=== PATIENT | female | born 1950 | race American Indian/Alaskan Native ===

== ENCOUNTER 2018-05-24 09:39 | Outpatient (CLI) | payer MEDICARE, MEDICAID ==
--- NOTE | 2018-05-24 13:46 | MRI ---
MRI LUMBAR SPINE WITHOUT CONTRAST: INDICATION: Wedge compression abnormalities of the lumbar spine. FINDINGS: There is a moderate wedge compression abnormality that is subacute in appearance involving L3. There is a mild inferior end plate compression abnormality of L4 that appears subacute in appearance. No additional acute fracture is evident. There is a T2 hyperintense, T1 hypointense, 1.9 cm, cyst involving the inferior pole of the right kid efrain. At L5-S1, there is mild facet joint degenerative change without appreciable central canal or neural f oraminal narrowing. At L4-5, there is a broad-based bulge with facet hypertrophy inducing mild neural foraminal encroachm ent. At L3-4, there is a mild broad-based bulge and facet hypertrophy causing mild neural foraminal encroa chment. At L2-3, there is some retropulsion of bone fragments from the posterior superior margin of L3 causin g some mild central canal narrowing. There is no appreciable neural foraminal narrowing. At L1-L3, there is no appreciable central canal or neural foraminal narrowing. At T12-L1, there is a small left paracentral protrusion with no appreciable central canal or neural f oraminal narrowing. IMPRESSION: 1. Subacute-appearing compression abnormalities of L3 and L4. 2. Mild central canal narrowing at L2-3. 3. Mild neural foraminal encroachment as above. POS: [facility]
== END 2018-05-24 09:40 | disposition home or self-care (01) ==
LOC: BICMRI 09:39
PROVIDERS: ATTEND Specialist
DX: S32.000A Wedge compression fracture of unspecified lumbar vertebra, initial encounter for closed fracture (principal); M48.061 Spinal stenosis, lumbar region without neurogenic claudication
CPT/HCPCS: 72148

== ENCOUNTER 2018-05-26 11:31 | Day surgery (SDC) | payer MEDICARE, MEDICAID ==
[2018-05-25 15:54] VITALS: BMI 45.5
[~2018-05-26 11:31] MED LIST: PROPOFOL 200 MG/20 ML VIAL ONE; Succinylcholine Chloride 20 MG/ML 10 ml SYRINGE FS ONE
[2018-05-26] MEDS ORDERED: Propofol 500 MG/50 ML VIAL ONE (13:31)
[2018-05-26] MEDS ORDERED: KETAMINE 100 MG/ML (5ML VIAL) ONE (13:48)
[2018-05-26] MEDS ORDERED: Bupivacaine 0.25% HCL 30 ML VIAL ONE (14:14)
[2018-05-26] MEDS ORDERED: Albuterol Sulfate 1.25 MG/3 ML NEB ONE (15:31)
[2018-05-26] MEDS ORDERED: Albuterol Sulfate 2.5 mg/3 ml Neb ONE ×2 (15:31)
[2018-05-26] MEDS ORDERED: Fentanyl 100 MCG/2 ML VIAL ONE (15:52)
[2018-05-26] MEDS ORDERED: HYDROcodone/Acetaminophen 7.5/325 mg Tablet ONE (17:31)
--- NOTE | 2018-05-26 17:49 | OP ---
DATE OF PROCEDURE: 05/26/2018 PREPROCEDURE DIAGNOSES: 1. Compression fracture of third lumbar vertebra. 2. Compression fracture of fourth lumbar vertebra. 3. Pathologic compression fracture of lumbar vertebra. POSTPROCEDURE DIAGNOSES: 1. Compression fracture of third lumbar vertebra. 2. Compression fracture of fourth lumbar vertebra. 3. Pathologic compression fracture of lumbar vertebra. PROCEDURE PERFORMED: 1. Kyphoplasty of the L3 vertebral body. 2. Kyphoplasty of the L4 vertebral body. ANESTHESIA: General. SUMMARY OF PROCEDURE: The risks and benefits were discussed with the patient including, but not limited to, bleeding, infection, nerve damage, worsening of pain or no relief of the pain. Informed consent was obtained. Conservative treatment including bracing, medication, and therapy have failed. Fluoroscopy images were used to identify the appropriate level and correlate these images with prior MRI. The skin was prepped with ChloraPrep. Sterile drapes were applied. The left pedicle of L4 was identified. Cephalad and caudad views were obtained such that the trajectory of the needle in the pedicle would be correct and through the vertebral body and approached middle line a final position. 0.25% Marcaine was used for skin and subcutaneous anesthesia and 11-gauge trocar was advanced to the pedicle. Under AP view, the trocar was advanced to the cortex of the vertebral body taking care not to violate the medial cortex of the pedicle. After contacting the cortex, lateral views were obtained to advance the needle into the vertebral body such that the tip was located at the junction of the posterior one third and middle one third of the vertebral body. The same exact procedure was conducted for the right pedicle of L3. At this point, drills were placed through both trocars and advanced to the anterior one third. These were removed. Claudette balloon was then placed through each trocar and advanced to the vertebral body. The balloon was inflated with approximately 3 mL of contrast to a PSI of 300. A curved needle was then placed through both trocars and it crossed midline. Cement was then mixed in standard fashion. The cement was injected in the cavity under continuous fluoro and no extravagation of cement was noted. Total cement in each level was approximately 3 mL. Spread was noted throughout the cavity and throughout the vertebral body as seen on final images saved. The patient tolerated the procedure well and there were no apparent complications noted at this time. Job ID: [id number]
== END 2018-05-26 17:40 | disposition home or self-care (01) ==
LOC: SDC 11:31
PROVIDERS: ATTEND Specialist
PROC: 0QS03ZZ Reposition Lumbar Vertebra, Percutaneous Approach (ICD-10-PCS; principal; 2018-05-26)
PROC: 0QU03JZ Supplement Lumbar Vertebra with Synthetic Substitute, Percutaneous Approach (ICD-10-PCS; 2018-05-26)
DX: S32.030A Wedge compression fracture of third lumbar vertebra, initial encounter for closed fracture (principal); S32.040A Wedge compression fracture of fourth lumbar vertebra, initial encounter for closed fracture; M54.12 Radiculopathy, cervical region; M47.816 Spondylosis without myelopathy or radiculopathy, lumbar region; J44.9 Chronic obstructive pulmonary disease, unspecified; E78.5 Hyperlipidemia, unspecified; K21.9 Gastro-esophageal reflux disease without esophagitis; I11.0 Hypertensive heart disease with heart failure; I50.9 Heart failure, unspecified; F17.210 Nicotine dependence, cigarettes, uncomplicated; Z79.52 Long term (current) use of systemic steroids; Z79.82 Long term (current) use of aspirin; Z79.899 Other long term (current) drug therapy; X50.0XXA Overexertion from strenuous movement or load, initial encounter
CPT/HCPCS: 22514; 22515; C1769; J2704; J3010; J3490; J7611; S0020

== ENCOUNTER 2018-05-31 11:22 | Inpatient (IN) | payer MEDICARE, MEDICAID ==
[2018-05-31] MEDS ORDERED: Magnesium 2 GM/50 ML BAG (IN WATER) ONE (11:47)
[2018-05-31] MEDS ORDERED: methylPREDNISolone Sod Succ/PF 125 MG/2 ML VIAL ONE (11:47)
[2018-05-31] MEDS ORDERED: Furosemide 40 MG/4 ML VIAL ONE (11:47)
[2018-05-31 12:06] LABS: Actual Bicarbonate (HCO3a) 34.2 mEq/L (22-28); Analyzer IN Cardio ER; Base Excess (BEa) 7.5 mEq/L (-2.0 to +3.0); CO2 Tension 55.5 mmHg (35.0-45.0); Calcium, Ionized 1.14 mmol/L (1.12-1.30); Carboxyhemoglobin (COHb) 3.6 gm% (0.0-3.0); Hemoglobin (Hb) 15.1 g/dL (12.0-16.0); O2 Tension (PaO2) 62.2 mmHg (> 80.0); Potassium - ABG Lab 3.79 mmol/L (3.70-5.30); pH, Arterial 7.41 (7.35-7.45)
[2018-05-31 12:09] LABS: ALV-art Gradient 96.585 (0-20); Puncture Site LR
--- NOTE | 2018-05-31 12:16 | RAD ---
ONE VIEW CHEST: History: Shortness of breath. Comparison: None. FINDINGS: Normal cardiac silhouette. The pulmonary vessels and hilum are normal. Costophrenic angles are clear. Emphysematous change throughout the upper lobes. Interstitial opacities in mid to lower lobes may re present chronic change. Infiltrates cannot be excluded. No pneumothorax or osseous abnormalities. IMPRESSION: 1. Bilateral lower lobe chronic change versus infiltrate. 2. Emphysematous changes. POS: [facility]
[2018-05-31 12:29] LABS: #Basophils 0.1 thou/uL (0.0-0.2); #Eosinphils 0.1 thou/uL (0.0-0.7); #Lymphocytes 2.5 thou/uL (1.20-3.40); #Monocytes 0.7 thou/uL (0.11-0.59); #Neutrophils 4.6 thou/uL (1.40-6.50); %Basophils 0.9 % (0.0-1.0); %Eosinophils 1.3 % (0.0-10.0); %Lymphocytes 31.6 % (21.0-51.0); %Monocytes 8.5 % (0.0-10.0); %Neutrophils 57.7 % (42.0-75.0); Hemoglobin 15.1 g/dL (12.0-16.0); Mean Corpuscular HGB CONC 32.4 g/dL (32.0-36.0); Mean Corpuscular Hemoglobin 31.7 pg (27.0-31.0); Mean Corpuscular Volume 97.7 fL (78.0-98.0); Mean Platelet Volume 7.8 fL (7.4-10.4); Platelet Count 208 thou/uL (130-400); Red Blood Cell (RBC) Count 4.76 mill/uL (4.20-5.40); White Blood Cell (WBC) Count 7.9 thou/uL (4.8-10.8)
[2018-05-31 12:54] LABS: ALT (SGPT) 17 U/L (8-55); AST (SGOT) 15 U/L (5-34); Albumin 4.2 g/dL (3.4-4.8); Alkaline Phosphatase 99 U/L (40-150); Anion Gap 14 mmol/L (10-20); BUN (Urea Nitrogen) 12 mg/dL (9.8-20.1); Bilirubin, Total 0.8 mg/dL (0.2-1.2); Calc. Creatinine Clearance 0 mL/min (70-130); Calcium 9.3 mg/dL (7.8-10.44); Carbon Dioxide 33 mmol/L (23-31); Chloride 98 mmol/L (98-107); Estimated GFR-MDRD 76; Globulin 2.1 g/dL (2.4-3.5); Glucose 112 mg/dL (80-115); Potassium 3.9 mmol/L (3.5-5.1); Protein, Total 6.3 g/dL (6.0-8.3); Sodium 141 mmol/L (136-145)
[2018-05-31 13:32] LABS: Bilirubin Negative (Negative); Blood, Urine Moderate (Negative); Clarity CLEAR (Clear); Glucose, Urine (Dipstick) Negative (Negative); Leukocyte Negative (Negative); Nitrite Negative (Negative); Protein, Urine (Dipstick) Negative (Neg-Trace); Specific Gravity, Urine 1.007 (1.002-1.036); Urobilinogen 0.2 mg/dL (0.2-1.0); pH, Urine 6.5 (5.0-9.0)
[2018-05-31 13:37] LABS: Bacteria/HPF None Seen HPF (None Seen); Hyaline Casts/LPF 0-3 HYALINE CAST LPF (0-3 Hyaline); Pathc Cast-AUWi Flag 0.14 (0-2.49); Squamous Epithelial 0-3 HPF (0-3); WBC/HPF None Seen HPF (0-3)
--- NOTE | 2018-05-31 13:43 | CT ---
CTA CHEST WITH CONTRAST: Comparison: None. History: Increasing shortness of breath and cough for the past few days. Technique: Multiple contiguous axial images were obtained in a CTA of the chest performed with emboli sm protocol. 3D oblique MIP reformats and direct coronal reformats were performed. FINDINGS: The pulmonary arteries are well opacified without filling defects to suggest pulmonary emboli. The he art is normal in size without focal cardiac abnormality. No hilar or mediastinal lymphadenopathy are seen. Emphysematous changes are seen in the lungs, greater in the apices. A 1.1 cm mass like region in the medial lingula may represent atelectasis. A similar appearance is also seen in the right middle lobe on image 73 of 120. No other pulmonary masses are seen. No pneumothorax or pleural effusion are prese nt. The chest wall soft tissues are unremarkable. The visualized subdiaphragmatic structures are unremark able. Mild degenerative changes are seen in the spine. IMPRESSION: No evidence of pulmonary thromboembolism. POS: [facility]
[2018-05-31] MEDS ORDERED: Azithromycin 500 MG VIAL ONE (14:42)
[2018-05-31] MEDS ORDERED: HYDROcodone/Acetaminophen 7.5/325 mg Tablet ONE ×2 (14:42→20:32)
[2018-05-31] MEDS ORDERED: Nitroglycerin 2% Ointment 1 INCH/1 GM Packet ONE (16:01)
[2018-05-31] MEDS ORDERED: ISOVUE-370 76%-LOCM 1 ML ONE (17:00)
[2018-05-31] MEDS ORDERED: Acetaminophen 650 MG Suppository PR PRN (19:46)
[2018-05-31] MEDS ORDERED: Acetaminophen 325 MG TAB PO PRN (19:46)
[2018-05-31] MEDS ORDERED: Ondansetron ODT 4 MG TAB PO PRN (19:46)
[2018-05-31] MEDS ORDERED: Senokot S 8.6-50 MG TAB PO PRN (19:46)
[2018-05-31] MEDS ORDERED: Ondansetron PF 4 MG/2 ML Vial IVP PRN (19:46)
[2018-05-31 23:02] VITALS: BMI 45.9
[2018-05-31] MEDS: cefTRIAXone\\ROCEPHIN 2 GM in Sodium Chloride 0.9% 100 ML IVPB SCH (23:22)
[2018-05-31] MEDS: methylPREDNISolone Sod Succ 40 MG VIAL IVP SCH (23:23)
[2018-05-31] MEDS: Cyclobenzaprine 10 MG TAB PO SCH (23:23)
[2018-05-31] MEDS: Famotidine 20 MG TAB PO SCH (23:23)
--- NOTE | 2018-06-01 02:03 | HP ---
PRIMARY CARE PHYSICIAN: Patience Mayer MD CHIEF COMPLAINT: Cough, shortness of breath. HISTORY OF PRESENT ILLNESS: This is a 68-year-old white female with known history of COPD, on 3 L of oxygen at home. She has had a history of osteoporosis and had a compression fracture, treated by kyphoplasty five days ago by Dr. Christy. The patient reports that she had to be intubated for the procedure. However, since then she has had a sore throat. She has had increasing coughing, wheezing, and shortness of breath. She has chronic cough with chronic clear sputum, this has become yellow and increasing in amount. She has had some chills, no measured fever. The patient called ambulance. Per the EMS report, the patient was saturating 79% at her home. I do not know this was on her 3 L oxygen or not. By the time she came to the ER, she was saturating in the upper 90s on her home dose of 3 L of oxygen. She was given nebs and steroids. CT scan done in the emergency room did not show any pulmonary emboli or pneumonia, just COPD changes. No evidence of pulmonary edema either. The patient was given azithromycin along with nebs and steroids in the emergency room. She started to feel a little bit better, still tight and wheezy, however. The patient also notes that she has had some increasing lower extremity edema. She has this chronically, but seems to have gotten worse in the last few weeks and for the last 2 weeks she has had some redness on the front of her shins, not warm and not spreading, but the redness is new. PAST MEDICAL HISTORY: 1. COPD, on home oxygen and requiring long-term steroids. 2. Osteoporosis with vertebral compression fractures. 3. Hypertension. 4. Previous bradycardia spells. 5. Hyperlipidemia. 6. Gastroesophageal reflux disease. 7. Chronic back pain. 8. Some question of congestive heart failure. 9. Umbilical hernia. PAST SURGICAL HISTORY: 1. Kyphoplasty. 2. Hysterectomy. 3. Recent stress test in [place], unknown results. SOCIAL HISTORY: The patient is , lives with her son who is her medical decision maker. She has recently moved to the area. She smokes one pack per day of cigarettes, this is down from previously four packs per day for the past 48, almost 50 years. No alcohol or illicit drug use. FAMILY HISTORY: Brother with COPD. Dad had coronary artery disease and COPD and diabetes mellitus. REVIEW OF SYSTEMS: CONSTITUTIONAL: Some chills. No measured fevers. No weight changes. EYES: No double vision or blurred vision. ENT: She has had some runny nose and some sore throat since the intubation last week. CARDIOVASCULAR: The patient has intermittent chest pain. This has been somewhat chronic. The reason that she had a stress test done previously last time was started about 2 hours before she came into the hospital, it got a little better with some nitroglycerin in the emergency room that has caused a headache. No palpitations or racing heart. PULMONARY: See HPI. GASTROINTESTINAL: No abdominal pain. She had some nausea and vomiting after her procedure last week, but none since and has been eating well. No diarrhea or constipation. GENITOURINARY: No dysuria or hematuria. MUSCULOSKELETAL: Chronic back pain. No other musculoskeletal complaints. SKIN: The patient has noted some small patches of redness on the front of bilateral shins for the last 2 weeks. These is not spreading, is not warm. She does have chronic edema there, that has gotten worse recently. NEUROLOGIC: No numbness, tingling, or focal weakness. PHYSICAL EXAMINATION: VITAL SIGNS: Blood pressure 132/84, pulse 96, respirations 18, temperature 98, O2 saturation 98%. GENERAL: This is a well-developed, obese white female, in mild respiratory distress, with mild increased work of breathing and some coughing. HEENT: Pupils are equal, round, and reactive to light. Oropharynx is clear without lesions, erythema, or exudate. NECK: Supple. No lymphadenopathy. No thyroid nodules or enlargement. No JVD. HEART: Regular rate and rhythm. No murmurs, rubs, or gallops. LUNGS: The patient has some scattered wheezes bilaterally, has some tight breath sounds. No focal findings. ABDOMEN: Soft, obese, nontender to palpation. Normoactive bowel sounds. No hepatosplenomegaly or other masses. EXTREMITIES: The patient has 2+ pitting edema pops up on bilateral shins. She does have some small patches of erythema on bilateral anterior shins. This is not warm, but is fairly bright, no streaking proximally. No significant tenderness to palpation. No open wounds. SKIN: See extremity exam. No other lesions noted. NEUROLOGIC: Intact strength and sensation in all extremities. No facial droop. PSYCHIATRIC: Alert and oriented x3. Normal mood and affect. LABORATORY DATA: CBC within normal limits. No elevation of white blood cell count. Arterial blood gas, normal pH, pCO2 was 55, PO2 was normal. Complete metabolic panel showed a carbon dioxide of 33, the rest was normal. Lactic acid was negative. Troponin was negative x1. Brain natriuretic peptide was 33. Urinalysis shows a few red blood cells, but no white blood cells, no bacteria. CT of the chest with contrast showed no evidence of pulmonary embolism. No pneumonia. There are some emphysematous changes and some areas of atelectasis. No evidence for pulmonary edema. Chest x-ray, I did review the chest x-ray done in the emergency room along with the radiologist's report. This shows some bilateral lower lobe chronic changes and emphysematous changes. EKG done in the emergency room does show normal sinus rhythm at 86 beats per minute with some occasional PVCs. No ST-segment changes. ASSESSMENT: 1. Chronic obstructive pulmonary disease exacerbation. We will continue nebs, steroids, and we will give the patient Rocephin and Avelox in the hospital. This should cover any possible cellulitis as well. 2. I will consult Dr. Caldwell from Pulmonology to assist in the patient's care. 3. Chest pain, most likely related to her chronic obstructive pulmonary disease exacerbation and coughing, however, did improve some with the nitroglycerin. We will trend the patient's troponins. 4. Edema with a questionable history of congestive heart failure. The patient's BNP is normal and she has no evidence of congestive failure on the CT scan. We will go ahead and get an echocardiogram to further evaluate her heart. 5. Hypertension. Resume patient's home blood pressure medications. 6. Tobacco abuse, counseled the patient on smoking cessation. 7. Gastroesophageal reflux disease. We will put the patient on Pepcid twice a day. 8. Deep venous thrombosis prophylaxis. We will put the patient on Lovenox and SCDs while in bed. 9. Code status. I did discuss this with the patient. She stated that she would not mind being intubated if it was necessary for a short period time, she would not want to be on the ventilator for a long period of time. However, she does not want any sort of chest compressions or shocks done should her heart stop. Her medical decision maker will be her son if she is incapacitated. His name is Austyn Blanco. Job ID: [id number]
[2018-06-01] MEDS: HYDROcodone/Acetaminophen 7.5/325 mg Tablet PO PRN ×4 (05:34→20:33)
[2018-06-01] MEDS: Furosemide 40 MG TAB PO SCH ×2 (05:35→14:54)
[2018-06-01] MEDS: methylPREDNISolone Sod Succ 40 MG VIAL IVP SCH ×4 (05:35→23:41)
[2018-06-01 05:49] LABS: #Lymphocytes 0.7 thou/uL (1.20-3.40); #Monocytes 0.1 thou/uL (0.11-0.59); #Neutrophils 9.2 thou/uL (1.40-6.50); %Eosinophils 0.3 % (0.0-10.0); %Lymphocytes 6.7 % (21.0-51.0); %Monocytes 1.4 % (0.0-10.0); %Neutrophils 91.6 % (42.0-75.0); Hemoglobin 13.5 g/dL (12.0-16.0); Mean Corpuscular HGB CONC 32.5 g/dL (32.0-36.0); Mean Corpuscular Hemoglobin 31.7 pg (27.0-31.0); Mean Corpuscular Volume 97.6 fL (78.0-98.0); Mean Platelet Volume 8.4 fL (7.4-10.4); Platelet Count 186 thou/uL (130-400); RBC Distribution Width 11.9 % (11.5-14.5); Red Blood Cell (RBC) Count 4.26 mill/uL (4.20-5.40); White Blood Cell (WBC) Count 10.1 thou/uL (4.8-10.8)
[2018-06-01 06:15] LABS: Anion Gap 14 mmol/L (10-20); BUN (Urea Nitrogen) 20 mg/dL (9.8-20.1); Calc. Creatinine Clearance 98 mL/min (70-130); Calcium 9.4 mg/dL (7.8-10.44); Carbon Dioxide 30 mmol/L (23-31); Chloride 100 mmol/L (98-107); Estimated GFR-MDRD 72; Glucose 141 mg/dL (80-115); Potassium 5.5 mmol/L (3.5-5.1); Sodium 138 mmol/L (136-145)
[2018-06-01] MEDS: Lisinopril 2.5 MG TAB PO SCH (08:10)
[2018-06-01] MEDS: Cyclobenzaprine 10 MG TAB PO SCH ×3 (08:11→20:33)
[2018-06-01] MEDS: Famotidine 20 MG TAB PO SCH ×2 (08:11→20:34)
[2018-06-01] MEDS: Atorvastatin Calcium 10 MG TAB PO SCH (08:11)
[2018-06-01] MEDS: Enoxaparin Sodium 40 MG/0.4 ML SYRINGE SC SCH (08:12)
--- NOTE | 2018-06-01 08:58 | PDOC.PN ---
- Subjective Encounter Start Date: 06/01/18 Encounter Start Time: 11:40 Subjective: Patient states her breathing is a little bit better. No current chest pain. -: Continued cough with yellow sputum. - Objective Resuscitation Status - Order Detail: 05/31/18 19:07 Resuscitation Status Routine Resuscitation Status: PRTL: Intubate only Discussed with: Patient MAR Reviewed: Yes Vital Signs & Weight: Vital Signs (12 hours) Temp Pulse Resp BP BP Pulse Ox 06/01/18 07:10 97.7 F 89 18 109/59 L 93 L 06/01/18 06:45 82 20 87 L 06/01/18 03:00 97.9 F 82 20 114/56 L 96 06/01/18 00:01 80 16 86 L 05/31/18 22:55 95 05/31/18 22:50 97.9 F 96 20 134/66 95 Weight Weight 197 lb 9.6 oz I&O: 05/31/18 06/01/18 06/02/18 06:59 06:59 06:59 Intake Total 520 Output Total 200 Balance 320 Result Diagrams: 06/01/18 05:11 06/01/18 05:11 Phys Exam - Physical Examination Constitutional: NAD HEENT: moist MMs Respiratory: no rales, no rhonchi, wheezing present Cardiovascular: RRR Gastrointestinal: soft, positive bowel sounds Bilateral lower extremities with compression wraps Neurological: non-focal, moves all 4 limbs Psychiatric: normal affect, A&O x 3 Dx/Plan (1) COPD with exacerbation Code(s): J44.1 - CHRONIC OBSTRUCTIVE PULMONARY DISEASE W (ACUTE) EXACERBATION Status: Acute Comment: On Steroids, Nebs, and Rocephin (2) Chest pain Code(s): R07.9 - CHEST PAIN, UNSPECIFIED Status: Resolved (3) Lower extremity edema Code(s): R60.0 - LOCALIZED EDEMA Status: Chronic Comment: with mild erythema for 2 weeks, possibly mild cellulitis vs venous stasis dermatitis, ECHO pending - Plan cont current plan of care, continue antibiotics, respiratory therapy, DVT proph w/lovenox, DVT proph w/SCDs * . - Discharge Day Encounter end time: 11:50
[2018-06-01 09:50] LABS: Troponin I Less than 0.010 ng/mL (< 0.028)
--- NOTE | 2018-06-01 16:58 | CON ---
DATE OF CONSULTATION: 06/01/2018 HISTORY OF PRESENT ILLNESS: Erica Carr is a 68-year-old female, who is admitted with COPD exacerbation. She is moving to this area, seeking new physicians. She was a 3 to 4 pack-a-day smoker most of the life and is down to a pack a day. She is also vaping. She has oxygen at home. She has never been seen by pulmonary physician this year, but was followed by one for while in [place]. She says she is feeling a little better, she felt in the emergency room. She has been sick for several days. PAST MEDICAL HISTORY: Remarkable for: 1. COPD. 2. Chronic hypoxemia on oxygen at home. 3. History of steroid dependence. 4. History of osteoporosis. 5. Hypertension. 6. History of lipid disorder. 7. History of chronic back pain. 8. Obesity. 9. Reflux disease. 10. History of herniorrhaphy. 11. History of kyphoplasty. 12. Status post hysterectomy. 13. Status post longstanding treatment with steroids. SOCIAL HISTORY: She has this mentioned smoking pack a day, not daily drinking. She denies drug use. FAMILY HISTORY: Positive for vascular disease and COPD. REVIEW OF SYSTEMS: Ten-point review of systems completed, otherwise negative with the exception of chronic pain. PHYSICAL EXAMINATION: GENERAL: She is in no distress. She is 4 feet and 7 inches, 197 pounds. BMI is 45. VITAL SIGNS: She is afebrile, heart rate 86, respiratory rate 18, oximetry 94% on 3 L, and blood pressure 126/56. HEENT: Pupils are equal. Sclerae are anicteric. NECK: Supple. She has a coarse voice. She has no lymphadenopathy. LUNGS: Remarkable diffuse faint wheezes. HEART: Regular rhythm. S1 and S2 are normal. ABDOMEN: Soft and nontender. She is quite obese. EXTREMITIES: Without asymmetry or edema. NEUROLOGIC: Grossly nonfocal. LABORATORY DATA: White count 10.1, hemoglobin 13.5, platelets 186. Sodium 138, potassium 5.5, chloride 100, bicarb 30, BUN 20, and creatinine 0.8. CT pulmonary angiogram, which shows no thromboembolic disease. No infiltrates. IMPRESSION: Acute on chronic respiratory failure with hypoxemia. She also has hypercarbia based on her blood gas in the emergency room with a pH 7.41, CO2 of 55, pO2 of 62. It is not believe she has ever had sleep apnea worked up, which may be contributing factors. She clearly clinically has very significant chronic obstructive pulmonary disease, aggravated by her ongoing heavy tobacco use ( which she does not think is heavy compared to her past). I agree with current management. Antimicrobial therapy, steroids, nebulizer treatments, and physical therapy as well as oxygen will be prescribed. At some point in time, she needs a sleep study. Her antimicrobial therapy can be switched to p.o. tomorrow. She probably can be taken off telemetry monitoring. We will continue to follow the other physicians caring for. This is a 50-minute consult, with greater than 50% of the time spent on the unit coordinating care. Job ID: [id number] MTDD
[2018-06-01] MEDS: Calcium Carbonate 500 MG ChewTAB PO PRN ×2 (18:08→22:19)
[2018-06-01] MEDS: cefTRIAXone\\ROCEPHIN 2 GM in Sodium Chloride 0.9% 100 ML IVPB SCH (20:35)
[2018-06-02] MEDS: HYDROcodone/Acetaminophen 7.5/325 mg Tablet PO PRN ×5 (01:23→21:11)
[2018-06-02 04:57] LABS: Anion Gap 12 mmol/L (10-20); BUN (Urea Nitrogen) 20 mg/dL (9.8-20.1); Calc. Creatinine Clearance 94 mL/min (70-130); Calcium 9.2 mg/dL (7.8-10.44); Carbon Dioxide 32 mmol/L (23-31); Chloride 98 mmol/L (98-107); Estimated GFR-MDRD 69; Glucose 129 mg/dL (80-115); Potassium 4.3 mmol/L (3.5-5.1); Sodium 138 mmol/L (136-145)
[2018-06-02] MEDS: Furosemide 40 MG TAB PO SCH ×2 (05:56→14:43)
[2018-06-02] MEDS: methylPREDNISolone Sod Succ 40 MG VIAL IVP SCH ×4 (05:56→23:16)
--- NOTE | 2018-06-02 07:20 | PDOC.PN ---
- Subjective Encounter Start Date: 06/02/18 Encounter Start Time: 09:00 Subjective: Patient reports improvement in shortness of breath. Cough also -: improving. No fevers. She thinks the chest pain she had previously -: was her reflux. None currently. - Objective Resuscitation Status - Order Detail: 05/31/18 19:07 Resuscitation Status Routine Resuscitation Status: PRTL: Intubate only Discussed with: Patient MAR Reviewed: Yes Vital Signs & Weight: Vital Signs (12 hours) Temp Pulse Resp BP BP Pulse Ox 06/02/18 04:00 97.7 F 89 20 122/57 L 93 L 06/01/18 23:46 89 18 98 06/01/18 20:05 98.2 F 95 18 136/60 94 L Weight Admit Weight 197 lb 9.6 oz Weight 197 lb 9.6 oz I&O: 06/01/18 06/02/18 06/03/18 06:59 06:59 06:59 Intake Total 2100 Output Total 1000 Balance 1100 Result Diagrams: 06/01/18 05:11 06/02/18 09:05 Phys Exam - Physical Examination Constitutional: NAD HEENT: moist MMs no more wheezing, breath sounds still a little tight Cardiovascular: RRR, no significant murmur Gastrointestinal: soft, positive bowel sounds Neurological: non-focal, moves all 4 limbs Psychiatric: normal affect, A&O x 3 Dx/Plan (1) COPD with exacerbation Code(s): J44.1 - CHRONIC OBSTRUCTIVE PULMONARY DISEASE W (ACUTE) EXACERBATION Status: Acute Comment: On Steroids, Nebs, and Rocephin since 05/31/18, switched to Omnicef 06/02/18 (2) Chest pain Code(s): R07.9 - CHEST PAIN, UNSPECIFIED Status: Resolved Comment: troponins all negative (3) Lower extremity edema Code(s): R60.0 - LOCALIZED EDEMA Status: Chronic Comment: with mild erythema for 2 weeks, possibly mild cellulitis vs venous stasis dermatitis, ECHO pending (4) GERD (gastroesophageal reflux disease) Code(s): K21.9 - GASTRO-ESOPHAGEAL REFLUX DISEASE WITHOUT ESOPHAGITIS Status: Chronic Comment: on PPI, add Maalox as needed - Plan cont current plan of care, continue antibiotics, respiratory therapy, out of bed /ambulate Switching to oral antibiotics. Cardiac w/u negative and no more chest -: pain. Will transfer to medical floor. Appreciate Dr. Caldwell's imput. * . - Discharge Day Encounter end time: 09:15
[2018-06-02] MEDS ORDERED: Mag-Al 1200 mg/1200 mg/30 ML UDCUP PO PRN (08:54)
[2018-06-02] MEDS: Cyclobenzaprine 10 MG TAB PO SCH ×3 (09:01→20:25)
[2018-06-02] MEDS: Cefdinir 300 MG CAP PO SCH ×2 (09:02→20:26)
[2018-06-02] MEDS: Atorvastatin Calcium 10 MG TAB PO SCH (09:02)
[2018-06-02] MEDS: Enoxaparin Sodium 40 MG/0.4 ML SYRINGE SC SCH (09:03)
[2018-06-02] MEDS: Lisinopril 2.5 MG TAB PO SCH (09:05)
[2018-06-02 09:54] LABS: Anion Gap 16 mmol/L (10-20); BUN (Urea Nitrogen) 21 mg/dL (9.8-20.1); Calc. Creatinine Clearance 79 mL/min (70-130); Calcium 9.9 mg/dL (7.8-10.44); Carbon Dioxide 31 mmol/L (23-31); Chloride 94 mmol/L (98-107); Estimated GFR-MDRD 56; Glucose 150 mg/dL (80-115); Sodium 136 mmol/L (136-145)
--- NOTE | 2018-06-02 16:18 | PRG ---
DATE OF SERVICE: 06/02/2018 SUBJECTIVE: Erica Carr says she is feeling better. OBJECTIVE: VITAL SIGNS: She is afebrile. Heart rate is in 80s, respiratory rates in the teens, oximetry is 93% on 3 L, blood pressure 127/70. LUNGS: Remarkable for barely audible wheezes today, significantly improved compared to yesterday. HEART: Regular rhythm. ABDOMEN: Soft. LABORATORY DATA: Sodium 136, potassium 5, chloride 94, bicarb 31, BUN 21, creatinine 0.99. IMPRESSION: Chronic obstructive pulmonary disease exacerbation, clinically improved. She can be switched to p.o. steroids, p.o. antimicrobial therapy, can be considered for discharge tomorrow. I will see her in the office in 2 to 3 weeks after discharge. She is on nothing for osteoporosis and has been on steroids for a long time. She probably should have Fosamax 70 mg a week added. We should probably add budesonide to her nebulized treatments at home, also hoping to decrease her use of p.o. steroids. Obviously decrease smoking more than the three pack, she has cutback, will lead to significant improvement in her pulmonary function most likely. We will continue to follow. Job ID: [id number] MTDD
[2018-06-02] MEDS: Calcium Carbonate 500 MG ChewTAB PO PRN (23:24)
[2018-06-03] MEDS: HYDROcodone/Acetaminophen 7.5/325 mg Tablet PO PRN ×5 (02:00→21:17)
[2018-06-03] MEDS: methylPREDNISolone Sod Succ 40 MG VIAL IVP SCH ×4 (05:06→23:00)
[2018-06-03] MEDS: Furosemide 40 MG TAB PO SCH ×2 (05:06→16:20)
[2018-06-03] MEDS: Enoxaparin Sodium 40 MG/0.4 ML SYRINGE SC SCH (08:22)
[2018-06-03] MEDS: Cefdinir 300 MG CAP PO SCH ×2 (08:24→20:24)
[2018-06-03] MEDS: Cyclobenzaprine 10 MG TAB PO SCH ×3 (08:24→20:24)
[2018-06-03] MEDS: Lisinopril 2.5 MG TAB PO SCH (08:24)
[2018-06-03] MEDS: Atorvastatin Calcium 10 MG TAB PO SCH (08:25)
--- NOTE | 2018-06-03 09:26 | PDOC.PN ---
- Subjective Encounter Start Date: 06/03/18 Encounter Start Time: 10:45 Subjective: Patient feeling slowly better. Still lightheaded and sob with exertion but -: improving. - Objective Resuscitation Status - Order Detail: 05/31/18 19:07 Resuscitation Status Routine Resuscitation Status: PRTL: Intubate only Discussed with: Patient MAR Reviewed: Yes Vital Signs & Weight: Vital Signs (12 hours) Temp Pulse Resp BP BP BP Pulse Ox 06/03/18 08:24 77 112/69 06/03/18 07:33 97.8 F 77 18 112/69 93 L 06/03/18 06:55 95 06/03/18 06:54 96 20 95 06/03/18 05:27 97.9 F 75 18 115/68 95 06/03/18 01:38 82 18 100 06/02/18 23:20 97.6 F 76 18 94/60 95 06/02/18 21:50 76 16 95 Weight Admit Weight 197 lb 9.6 oz Weight 197 lb 9.6 oz I&O: 06/02/18 06/03/18 06/04/18 06:59 06:59 06:59 Intake Total 2100 1170 Output Total 1000 1500 Balance 1100 -330 Result Diagrams: 06/01/18 05:11 06/02/18 09:05 Phys Exam - Physical Examination Constitutional: NAD HEENT: moist MMs Respiratory: no wheezing, no rales, no rhonchi tight breath sounds bilaterally, improved Cardiovascular: RRR Gastrointestinal: soft, positive bowel sounds Neurological: non-focal, moves all 4 limbs Psychiatric: normal affect, A&O x 3 Dx/Plan (1) COPD with exacerbation Code(s): J44.1 - CHRONIC OBSTRUCTIVE PULMONARY DISEASE W (ACUTE) EXACERBATION Status: Acute Comment: On Steroids, Nebs, and Rocephin since 05/31/18, switched to Omnicef 06/02/18 (2) Chest pain Code(s): R07.9 - CHEST PAIN, UNSPECIFIED Status: Resolved Comment: troponins all negative (3) Lower extremity edema Code(s): R60.0 - LOCALIZED EDEMA Status: Chronic Comment: with mild erythema for 2 weeks, possibly mild cellulitis vs venous stasis dermatitis, ECHO pending (4) GERD (gastroesophageal reflux disease) Code(s): K21.9 - GASTRO-ESOPHAGEAL REFLUX DISEASE WITHOUT ESOPHAGITIS Status: Chronic Comment: on PPI, add Maalox as needed (5) Congestive heart failure (CHF) Code(s): I50.9 - HEART FAILURE, UNSPECIFIED Status: Chronic Qualifiers: Heart failure type: combined systolic and diastolic Comment: EF 40-45%, grade 1/3 diastolic dysfunction - Plan cont current plan of care, continue antibiotics, respiratory therapy Patient still quite weak, would like to go home but daughter won't be -: available to be there 24 hours until tomorrow. Will plan on home tomorrow -: with home PT/OT. * . - Discharge Day Encounter end time: 11:00
--- NOTE | 2018-06-03 16:10 | PRG ---
DATE OF SERVICE: 06/03/2018 SUBJECTIVE: Erica Carr has no new complaints. She tells me she is being discharged tomorrow. I have written a prescription for prednisone taper, nebulized budesonide 0.5 mg as well as Fosamax 70 mg to take once a week. OBJECTIVE: VITAL SIGNS: She is afebrile, heart rate is 90, respiratory rate is 18; oximetry is 91% on 2 L cannula, she has oxygen at home and blood pressure is 119/61. LUNGS: Clear today. HEART: Regular rhythm. ABDOMEN: Soft and nontender. EXTREMITIES: Without edema. LABORATORY DATA: No new lab. IMPRESSION: 1. Chronic obstructive pulmonary disease exacerbation. 2. Probable sleep apnea. 3. Obesity and deconditioning. 4. Steroid dependence lately. 5. Heavy tobacco use up until this admission. PLAN: Continue supportive care. I will see her in followup in 2 to 3 weeks after discharge. She has my phone number. Job ID: [id number]
[2018-06-03] MEDS: Calcium Carbonate 500 MG ChewTAB PO PRN ×2 (16:28→23:00)
[2018-06-04] MEDS: HYDROcodone/Acetaminophen 7.5/325 mg Tablet PO PRN ×3 (01:15→13:12)
[2018-06-04] MEDS: Furosemide 40 MG TAB PO SCH ×2 (05:55→13:12)
[2018-06-04] MEDS: methylPREDNISolone Sod Succ 40 MG VIAL IVP SCH ×2 (05:56→13:13)
[2018-06-04 08:26] VITALS: BP 110/74; TEMP 98.7
[2018-06-04] MEDS: Atorvastatin Calcium 10 MG TAB PO SCH (09:26)
[2018-06-04] MEDS: Cyclobenzaprine 10 MG TAB PO SCH ×2 (09:26→13:11)
[2018-06-04] MEDS: Lisinopril 2.5 MG TAB PO SCH (09:27)
[2018-06-04] MEDS: Cefdinir 300 MG CAP PO SCH (09:29)
[2018-06-04] MEDS: Enoxaparin Sodium 40 MG/0.4 ML SYRINGE SC SCH (09:32)
[2018-06-04] MEDS: Calcium Carbonate 500 MG ChewTAB PO PRN (13:13)
--- NOTE | 2018-06-05 02:02 | DIS ---
DATE OF ADMISSION: 05/31/2018 DATE OF DISCHARGE: 06/04/2018 CONSULTANTS: Dr. Caldwell of Pulmonology. MEDICATIONS: Medications are reconciled at discharge. New medications; 1. Fosamax 70 mg once a week for 4 weeks. 2. Budesonide 0.5 mg nebulized b.i.d. 3. Prednisone 20 mg tablets 2 tablets daily for 5 days and then 1 tablet daily after that until followup with Dr. Caldwell. The above medications prescribed by Dr. Caldwell Medication discontinued: Prednisone 10 mg daily, that the patient was previously on. Home medications to continue; 1. Vitamin D 50,000 units weekly. 2. Flexeril 5 mg p.o. t.i.d. 3. Furosemide 40 mg b.i.d. 4. [place] 7.5 mg 1 every 6 hours as needed. 5. Ipratropium 2 puffs 4 times daily as needed. 6. DuoNebs 4 times daily. 7. Lisinopril 2.5 mg daily. 8. Nitroglycerin 0.4 mg sublingual every 5 minutes as needed. 9. Protonix 40 mg daily. FINAL DIAGNOSES: 1. Acute on chronic hypoxic respiratory failure secondary to chronic obstructive pulmonary disease exacerbation. SECONDARY DIAGNOSES: 2. Systolic and diastolic heart failure, appears stable. 3. Osteoporosis with recent vertebral compression fracture and kyphoplasty. 4. Hypertension. 5. Dyslipidemia. 6. History of bradycardia. 7. Gastroesophageal reflux disease. 8. Chronic back pain. HISTORY OF PRESENT ILLNESS: Ms. Carr is a 68-year-old female with the above medical problems, who is on chronic oxygen, complaining of increasing cough and shortness of breath. The patient was found to have oxygen saturations of 79%, and was transported by EMS to this facility. In the emergency room, she was evaluated, started on steroids, antibiotics, and nebulizer therapy, and was admitted to the hospital. HOSPITAL COURSE: The patient was kept on the above medications in addition to Rocephin. She has had improvement of her breathing and is now back to baseline. She is on 3 L of home oxygen, uses regular nebulizers, and is on chronic prednisone. At discharge, she will be transitioned from Solu-Medrol to prednisone 40 mg once daily for 5 days and then 20 mg daily after that until follow up with Dr. Caldwell. T he patient does have systolic and diastolic heart failure. In discussion with her, she reports an EF normally around 40%, which is consistent with her echocardiogram here. She is on Lasix twice daily and we will continue with this. She does not require potassium replacement secondary to her potassium ranging from normal up to 5. One day it was 5.5, however, the following day it was 4.3. She does have lower extremity edema and does have some weeping and open skin wounds that were dressed by Wound Care here. It is recommended that she follow up with her new primary care provider with consideration for ongoing wound care. In addition, the patient does need to establish care with a quality compliance consultant and reports that she will schedule with Dr. Ely. The patient is overall at her baseline and does request discharge and meet criteria. PHYSICAL EXAMINATION: VITAL SIGNS: Temperature 98.7, pulse 98, respirations 14, sat 90% on 3 L, blood pressure 110/74. GENERAL: Awake, alert, responsive, in no apparent distress. LUNGS: Very distant lung sounds. No audible wheezing or rhonchi. HEART: Normal S1 and S2. No significant murmur. ABDOMEN: Soft with present bowel sounds. EXTREMITIES: She does have at least 2+ pitting edema bilateral. Her lower extremities are dressed. These were not evaluated. BRIGGS FINDINGS AND TEST RESULTS: CBC, on June 01, 10.1, 13.5, 41.6,186. Chemistry; 136, 5.0, 94, 31, 21, 0.99, 150. LFTs on admission, T bilirubin 0.8, AST 15, ALT 19, alkaline phosphatase 99, total protein 6.3, albumin 4.2. Urine on admission, reports moderate blood, but 4 to 6 red blood cells. Echocardiogram on June 01, shows an EF of 40% to 45%, grade 1/3 diastolic dysfunction, aortic valve sclerosis, but opens well, mild MR and TR. CT angiogram of the chest, negative for PE. Chest x-ray on 31 May, shows bilateral lower lobe chronic changes versus infiltrate and emphysematous changes. DIET: Heart healthy, low-sodium. ACTIVITY: As tolerated. FOLLOWUP: 1. Followup is with Dr. Caldwell 1st available in 2 to 3 weeks. 2. Recommend the patient makes an appointment with Cardiology to manage her chronic systolic and diastolic heart failure. 3. Follow up with her primary care provider within a week to review this hospitalization and any other needs. CODE STATUS: Here is intubate only, ongoing conversation will be helpful for the patient. Reviewed with the patient this hospitalization, medications, the importance of followup, and seek care precautions. She demonstrated understanding. DISCHARGE DISPOSITION: Home with home health. TIME SPENT: Total time coordinating discharge is 35 minutes. Job ID: [id number] MTDD
== END 2018-06-04 16:58 | disposition home or self-care (01) | DRG 190 ==
LOC: ERS 11:22 → 2NO 19:07 → T4-A 06-02 13:04
PROVIDERS: ADMIT Emergency Medicine; ATTEND Emergency Medicine
DX: J44.1 Chronic obstructive pulmonary disease with (acute) exacerbation (principal); J96.21 Acute and chronic respiratory failure with hypoxia; Z68.42 Body mass index [BMI] 45.0-49.9, adult; I50.42 Chronic combined systolic (congestive) and diastolic (congestive) heart failure; Z99.81 Dependence on supplemental oxygen; M81.0 Age-related osteoporosis without current pathological fracture; E78.5 Hyperlipidemia, unspecified; K21.9 Gastro-esophageal reflux disease without esophagitis; I11.0 Hypertensive heart disease with heart failure; G47.30 Sleep apnea, unspecified; F17.200 Nicotine dependence, unspecified, uncomplicated; E66.9 Obesity, unspecified; R00.1 Bradycardia, unspecified; M54.9 Dorsalgia, unspecified; G89.29 Other chronic pain
CPT/HCPCS: 36415; 71045; 71275; 80048; 80053; 81003; 81015; 82805; 83605; 83880; 84484; 85025; 90471; 90662; 93005; 93306; 94640; 94760; 96365; 96367; 96375; G0008; J0456; J0696; J1650; J1940; J2920; J2930; J3475; J7050; J7620; Q0162; Q9966

== ENCOUNTER 2018-06-05 10:14 | Inpatient (IN) | payer MEDICARE, MEDICAID ==
[2018-06-05 10:56] LABS: Actual Bicarbonate (HCO3a) 36.6 mEq/L (22-28); Analyzer IN Cardio ER; Base Excess (BEa) 10.1 mEq/L (-2.0 to +3.0); CO2 Tension 56.5 mmHg (35.0-45.0); Calcium, Ionized 1.09 mmol/L (1.12-1.30); Carboxyhemoglobin (COHb) 2.4 gm% (0.0-3.0); Hemoglobin (Hb) 14.4 g/dL (12.0-16.0); O2 Tension (PaO2) 125.4 mmHg (> 80.0); pH, Arterial 7.43 (7.35-7.45)
[2018-06-05 10:58] LABS: Puncture Site RR
[2018-06-05 10:59] LABS: ALV-art Gradient 124.825 (0-20)
[2018-06-05 11:04] LABS: #Basophils 0.1 thou/uL (0.0-0.2); #Monocytes 0.6 thou/uL (0.11-0.59); #Neutrophils 7.3 thou/uL (1.40-6.50); %Basophils 0.8 % (0.0-1.0); %Eosinophils 0.4 % (0.0-10.0); %Lymphocytes 11.4 % (21.0-51.0); %Monocytes 6.7 % (0.0-10.0); %Neutrophils 80.8 % (42.0-75.0); Hemoglobin 13.8 g/dL (12.0-16.0); Mean Corpuscular HGB CONC 32.2 g/dL (32.0-36.0); Mean Corpuscular Hemoglobin 31.6 pg (27.0-31.0); Mean Corpuscular Volume 98.2 fL (78.0-98.0); Mean Platelet Volume 7.7 fL (7.4-10.4); Platelet Count 220 thou/uL (130-400); RBC Distribution Width 11.6 % (11.5-14.5); Red Blood Cell (RBC) Count 4.35 mill/uL (4.20-5.40); White Blood Cell (WBC) Count 9.1 thou/uL (4.8-10.8)
--- NOTE | 2018-06-05 11:24 | RAD ---
CHEST 1 VIEW: HISTORY: COPD. Dyspnea. COMPARISON: 05/31/2018. FINDINGS: Cardiac silhouette is magnified and remains partially obscured by patchy bibasilar infiltrates. Pulm onary vasculature upper limits of normal. Linear radiopacity at the medial aspect of the left upper chest is stable. No lobar consolidation or evidence of pneumothorax. Old right rib fracture. IMPRESSION: Mild patchy bibasilar infiltrates and other chronic-type findings appear stable. POS: [facility]
[2018-06-05 11:34] LABS: ALT (SGPT) 22 U/L (8-55); AST (SGOT) 16 U/L (5-34); Albumin 4.2 g/dL (3.4-4.8); Alkaline Phosphatase 88 U/L (40-150); Anion Gap 12 mmol/L (10-20); BUN (Urea Nitrogen) 23 mg/dL (9.8-20.1); Bilirubin, Total 1.1 mg/dL (0.2-1.2); Calc. Creatinine Clearance 0 mL/min (70-130); Calcium 9.2 mg/dL (7.8-10.44); Carbon Dioxide 37 mmol/L (23-31); Chloride 94 mmol/L (98-107); Estimated GFR-MDRD 56; Globulin 2.3 g/dL (2.4-3.5); Glucose 106 mg/dL (80-115); Potassium 4.3 mmol/L (3.5-5.1); Protein, Total 6.5 g/dL (6.0-8.3); Sodium 139 mmol/L (136-145)
[2018-06-05] MEDS ORDERED: HYDROcodone/Acetaminophen 5/325 mg Tablet ONE (12:03)
[2018-06-05] MEDS ORDERED: Calcium Carbonate 500 MG ChewTAB ONE (13:19)
--- NOTE | 2018-06-05 13:36 | HP ---
PRIMARY CARE PHYSICIAN: Patience Mayer MD. REASON FOR ADMISSION: COPD exacerbation. HISTORY OF PRESENT ILLNESS: A 68-year-old female, who has underlying end-stage COPD as well as chronic respiratory failure, on home oxygen. The patient was recently admitted in our hospital on May 31, 2018. During that admission, Pulmonary group was following while in hospital. Pulmonary group signed off on this patient on June 03, 2018. The patient was discharged home yesterday, June 04, 2018. Per the patient, she was discharged late in the evening and she was not able to refill her prescription because her pharmacy was closed and she was without her prednisone as well as nebulizer therapy. This morning, her condition deteriorated, and she could not wait until she gets prescription and that is why she called Paramedics, and the patient was brought to emergency room. As per Paramedics, the patient was saturating 86% on home oxygen therapy. She was in tripod position. Paramedics started on her CPAP, and the patient was given DuoNeb therapy as well as Solu-Medrol prior to arrival. In the emergency room, the patient required BiPAP, and after short-term BiPAP therapy, the patient felt much better. When I saw this patient at that time, the patient was able to talk in full sentence and able to provide history. The patient also reports that her chronic oxygen saturation at home with oxygen is running 88 to 90s. In the emergency room, her oxygen saturation was in that range. The patient was not tachycardic. She was not using her accessory muscles of respiration. The patient felt better after BiPAP therapy and emergency room treatment. The patient did not have any fever or hemoptysis. She denies any constipation, diarrhea, melena, or hematochezia. She denies any headache or focal motor symptoms. REVIEW OF SYSTEMS: CONSTITUTIONAL: Negative for weight loss or gain, ability to conduct usual activities. SKIN: Negative for rash, itching. EYES: Negative for double vision, pain. ENT/MOUTH: Negative for nose bleeding, neck stiffness, pain, tenderness. CARDIOVASCULAR: Negative for palpitations, dyspnea on exertion, orthopnea. RESPIRATORY: Negative for shortness of breath, wheezing, cough, hemoptysis, fever or night sweats. GASTROINTESTINAL: Negative for poor appetite, abdominal pain, heartburn, nausea, vomiting, constipation, or diarrhea. GENITOURINARY: Negative for urgency, frequency, dysuria, nocturia. MUSCULOSKELETAL: Negative for pain, swelling. NEUROLOGIC/PSYCHIATRIC: Negative for anxiety, depression. ALLERGY/IMMUNOLOGIC: Negative for skin rash, bleeding tendency. See my HPI for pertinent positives and negatives. All other review of systems reviewed and negative except as mentioned in HPI. PAST MEDICAL HISTORY: Chronic respiratory failure, on home oxygen therapy; end-stage COPD; osteoporosis; multiple vertebral compression fracture; hypertension; dyslipidemia; gastroesophageal reflux disease; chronic low back pain; and chronic systolic and diastolic heart failure. PAST SURGICAL HISTORY: Multiple kyphoplasty and hysterectomy. SOCIAL HISTORY: The patient is , lives with her son, who is medical decision maker. She recently moved to this area. She smokes about one pack per day. Previously, she used to smoke about four packs per day, but she cut down for last few days. No history of alcohol or other illicit drug abuse. FAMILY HISTORY: Brother also has COPD. Father also had COPD, coronary artery disease, and diabetes. EMERGENCY ROOM COURSE: The patient was given DuoNeb therapy x2 and Solu-Medrol 125 mg. ALLERGIES: NO KNOWN DRUG ALLERGIES. CURRENT HOME MEDICATIONS: 1. Nitroglycerin 0.4 mg sublingual p.r.n. 2. [place] 7.5 one tablet q.6 hourly p.r.n. 3. Lipitor 10 mg p.o. daily. 4. Vitamin D3 of 50,000 units weekly. 5. Flexeril 5 mg b.i.d. p.r.n. 6. Lasix 40 mg daily. 7. Atrovent HFA 2 puffs q.6 hourly. 8. DuoNeb q.6 hourly. 9. Lisinopril 2.5 mg p.o. daily. 10. Protonix 40 mg p.o. daily. 11. Fosamax 70 mg every week. 12. Pulmicort nebulization twice daily. 13. Prednisone 40 mg as directed. PHYSICAL EXAMINATION: VITAL SIGNS: On arrival, blood pressure 148/88, pulse 92, respiratory rate 20, temperature 98.7, saturation 100% on BiPAP. Currently, the patient is off BiPAP and saturating 92%. Weight 88.9 kg. GENERAL: The patient is currently alert, awake, in mild respiratory distress. HEENT: Head; normocephalic and atraumatic. Eyes; pupils are round and reactive to light. Extraocular muscle, intact. ENT; oropharynx within normal limits. Moist mucous membrane. No oral lesion. No pharyngeal erythema. No exudate. NECK: Supple. No JVD. No thyromegaly. No carotid bruit. LUNGS: Bilateral end-expiratory wheezing. No accessory muscles of respiration in use. CARDIAC: S1 and S2, regular. Slight tachycardia. No murmur. No gallop. No rub. ABDOMEN: Soft. Bowel sounds present. Nontender. Nondistended. No organomegaly. No mass. No suprapubic tenderness. BACK: Unremarkable. No CVA tenderness. EXTREMITIES: Upper extremities, passive movement of all joints is normal. Lower extremities, no edema. Good distal pulsation. SKIN: No skin rash. HEMATOLOGICAL SYSTEM: No lymphadenopathy. PSYCHIATRIC: Normal affect. SIGNIFICANT LABORATORY DATA: EKG is showing normal sinus rhythm without any acute ischemic changes. Chest x-ray based on my review; mild patchy bibasilar infiltrate, chronic changes. CBC; WBC 9.1, hemoglobin 13.8, platelet 220. ABG; pH 7.43, CO2 of 56.5, bicarb 36.6, O2 of 125.4, saturation 98.1 on BiPAP. BMP; sodium 139, potassium 4.3, chloride 94, carbon dioxide 37, BUN 23, creatinine 0.99, glucose 106, calcium 9.2. LFT; AST 16, ALT 22, alkaline phosphatase 88, albumin 4.2. BNP 58.4. Troponin 0.010. ASSESSMENT AND PLAN: 1. [id number] respiratory failure with hypoxia and hypercapnia. The patient's home oxygen saturation was 86% with her home oxygen. The patient was not able to refill her prescription yesterday, and she was not able to get any medication that might have precipitated her recurrent presentation. She has improved with BiPAP in the emergency room and currently maintaining her baseline saturation with nasal cannula oxygen. 2. Chronic obstructive pulmonary disease exacerbation, likely due to inability to refill prescription. The patient will be observed overnight in hospital with frequent respiratory therapy, Solu-Medrol 40 mg IV q.6 hourly, Pulmicort nebulization twice daily, and Mucinex 600 mg twice daily. 3. Dyslipidemia. We will continue Lipitor 10 mg p.o. daily. 4. Chronic low back pain. We will continue Flexeril 5 mg p.o. b.i.d. p.r.n. 5. Chronic systolic and diastolic heart failure, currently euvolemic. Continue Lasix 40 mg p.o. daily. 6. Lisinopril 2.5 mg p.o. daily. The patient is not a good candidate for beta-venu therapy because of end-stage chronic obstructive pulmonary disease. 7. Osteoporosis. The patient will resume Fosamax after discharge. 8. Gastroesophageal reflux disease. We will continue Protonix 40 mg p.o. daily. 9. Deep venous thrombosis prophylaxis. Lovenox 40 mg subcutaneous daily. 10. Gastrointestinal prophylaxis. Protonix 40 mg p.o. daily. CODE STATUS: The patient is full code. The patient's son is surrogate decision maker. DISPOSITION PLAN: Based on clinical course, likely 24 to 48 hours. Plan of care discussed with the patient in detail. Job ID: [id number]
[2018-06-05] MEDS ORDERED: Ondansetron ODT 4 MG TAB SL PRN (14:14)
[2018-06-05] MEDS ORDERED: Ondansetron PF 4 MG/2 ML Vial IVP PRN ×2 (14:14→14:33)
[2018-06-05] MEDS ORDERED: Acetaminophen 325 MG TAB PO PRN ×2 (14:14→14:33)
[2018-06-05] MEDS ORDERED: Sodium Chloride 0.9% 500 ML IV SCH (14:15)
[2018-06-05 14:22] VITALS: BMI 45.5
[2018-06-05] MEDS ORDERED: Cepastat Lozenges 1 LOZ PO PRN (14:33)
[2018-06-05] MEDS ORDERED: Bisacodyl 5 MG TAB PO PRN (14:33)
[2018-06-05] MEDS ORDERED: Senokot S 8.6-50 MG TAB PO PRN (14:33)
[2018-06-05] MEDS ORDERED: Diabetic Tussin 200 MG/10 ML UDCUP PO PRN (14:33)
[2018-06-05] MEDS ORDERED: Eucerin (Mineral Oil/Petrolatum,White) 30 gm Jar TOP PRN (14:33)
[2018-06-05] MEDS ORDERED: Loratadine 10 MG TAB PO PRN (14:33)
[2018-06-05] MEDS ORDERED: cloNIDine 0.1 MG TAB PO PRN (14:33)
[2018-06-05] MEDS ORDERED: Bisacodyl 10 MG SUPP PR PRN (14:33)
[2018-06-05] MEDS ORDERED: Ondansetron ODT 4 MG TAB PO PRN (14:33)
[2018-06-05] MEDS ORDERED: hydrALAZINE 20 MG/ML VIAL SLOW IVP PRN (14:33)
[2018-06-05] MEDS ORDERED: Loperamide HCl 2 MG CAP PO PRN (14:33)
[2018-06-05] MEDS ORDERED: Calcium Carbonate 500 MG ChewTAB PO PRN (14:33)
[2018-06-05] MEDS ORDERED: Sodium Chloride 0.65% Nasal 44 ML BOT EA NARE PRN (14:33)
[2018-06-05] MEDS ORDERED: Artificial Tears 18 DROP/0.9 ML EA EYE PRN (14:33)
[2018-06-05] MEDS: methylPREDNISolone Sod Succ 40 MG VIAL IVP SCH ×2 (15:24→20:15)
[2018-06-05] MEDS: Cyclobenzaprine 10 MG TAB PO PRN ×2 (15:24→23:37)
[2018-06-05] MEDS: HYDROcodone/Acetaminophen 5/325 mg Tablet PO PRN ×2 (16:22→21:15)
[2018-06-05] MEDS ORDERED: methylPREDNISolone Sod Succ/PF 125 MG/2 ML VIAL IVP SCH (18:00)
[2018-06-05] MEDS: Budesonide 0.5 MG/2 ML NEB NEB SCH (18:55)
[2018-06-05] MEDS: guaiFENesin ER 600 MG TAB PO SCH (20:14)
[2018-06-05] MEDS: Bacteriostatic Water 30 ML VIAL FS SCH (20:15)
[2018-06-06] MEDS: HYDROcodone/Acetaminophen 5/325 mg Tablet PO PRN (01:45)
[2018-06-06] MEDS: methylPREDNISolone Sod Succ 40 MG VIAL IVP SCH ×2 (02:06→07:58)
[2018-06-06] MEDS: Bacteriostatic Water 30 ML VIAL FS SCH (02:07)
[2018-06-06 05:29] VITALS: TEMP 97.9
[2018-06-06] MEDS: Budesonide 0.5 MG/2 ML NEB NEB SCH (06:02)
[2018-06-06 06:08] LABS: #Lymphocytes 0.5 thou/uL (1.20-3.40); #Monocytes 0.3 thou/uL (0.11-0.59); #Neutrophils 10.3 thou/uL (1.40-6.50); %Basophils 0.1 % (0.0-1.0); %Eosinophils 0.3 % (0.0-10.0); %Lymphocytes 4.8 % (21.0-51.0); %Monocytes 2.2 % (0.0-10.0); %Neutrophils 92.6 % (42.0-75.0); Hemoglobin 13.7 g/dL (12.0-16.0); Mean Corpuscular HGB CONC 32.4 g/dL (32.0-36.0); Mean Corpuscular Hemoglobin 31.7 pg (27.0-31.0); Mean Corpuscular Volume 97.8 fL (78.0-98.0); Platelet Count 223 thou/uL (130-400); RBC Distribution Width 11.5 % (11.5-14.5); Red Blood Cell (RBC) Count 4.32 mill/uL (4.20-5.40); White Blood Cell (WBC) Count 11.2 thou/uL (4.8-10.8)
[2018-06-06 06:27] LABS: BUN (Urea Nitrogen) 20 mg/dL (9.8-20.1); Calc. Creatinine Clearance 86 mL/min (70-130); Calcium 9.6 mg/dL (7.8-10.44); Estimated GFR-MDRD 63; Glucose 129 mg/dL (80-115)
[2018-06-06 06:38] LABS: Anion Gap 18 mmol/L (10-20); Carbon Dioxide 31 mmol/L (23-31); Chloride 95 mmol/L (98-107); Potassium 4.2 mmol/L (3.5-5.1); Sodium 140 mmol/L (136-145)
[2018-06-06] MEDS: guaiFENesin ER 600 MG TAB PO SCH (07:54)
[2018-06-06] MEDS: Cyclobenzaprine 10 MG TAB PO PRN (07:54)
[2018-06-06 08:19] VITALS: BP 129/55
[2018-06-06] MEDS ORDERED: Lisinopril 2.5 MG TAB PO SCH (09:00)
[2018-06-06] MEDS ORDERED: Atorvastatin Calcium 10 MG TAB PO SCH (09:00)
[2018-06-06] MEDS ORDERED: Enoxaparin Sodium 40 MG/0.4 ML SYRINGE SC SCH (09:00)
--- NOTE | 2018-06-06 10:19 | DIS ---
DATE OF ADMISSION: 06/05/2018 DATE OF DISCHARGE: 06/06/2018 PRIMARY CARE PHYSICIAN: Dr. Patience Mayer. DISCHARGE DISPOSITION: Home. PRIMARY DISCHARGE DIAGNOSES: Acute on chronic respiratory failure with hypoxia and hypercapnia and chronic obstructive pulmonary disease exacerbation. SECONDARY DISCHARGE DIAGNOSES: Gastroesophageal reflux disease; dyslipidemia; chronic low back pain; combined systolic and diastolic heart failure; morbid obesity with a BMI of 45; chronic obstructive pulmonary disease; and chronic respiratory failure with hypoxia and hypercapnia, on home oxygen. PRIMARY PROCEDURE/OPERATION: None. RADIOLOGICAL INVESTIGATION: Chest x-ray was unremarkable, chronic changes. SIGNIFICANT LABORATORY DATA: WBC 11.2, hemoglobin 13.7, and platelets 223. Sodium 140, potassium 4.2, BUN 20, and creatinine 0.90. LFT normal. Cardiac enzyme negative. BNP 58.4. DISCHARGE MEDICATIONS: 1. [place] 7.5 one tablet q.6 hourly p.r.n. 2. Nitroglycerin 0.4 mg sublingual p.r.n. 3. Lipitor 10 mg p.o. at bedtime. 4. Vitamin D3 50,000 units weekly. 5. Flexeril 5 mg t.i.d. p.r.n. 6. Lasix 40 mg p.o. b.i.d. 7. Atrovent HFA two puffs q.i.d. 8. DuoNeb q.6 hourly. 9. Lisinopril 2.5 mg daily. 10. Protonix 40 mg daily. 11. Prednisone 20 mg p.o. daily as instructed. 12. Fosamax 70 mg p.o. 7 days. 13. Symbicort two puffs inhalation b.i.d. CONTRAINDICATION: None. CODE STATUS: Full code. INPATIENT MEDICAID SPECIALIST: None. ALLERGIES: NO KNOWN DRUG ALLERGIES. DISCHARGE PLAN: Posthospital, the patient will follow up with primary care physician and Dr. Caldwell as instructed. HOSPITAL COURSE: This is a 68-year-old female, who was recently discharged from the hospital, and the next day, the patient came back to the ER. What happened was, the patient was discharged late evening and the patient was not able to refill her prescription and that is why she got sick during nighttime and in the morning even her condition deteriorated and that is why she had to call paramedics and came to the emergency room. In the emergency room, she was given momentarily BiPAP and paramedics gave her CPAP as well as Solu-Medrol and DuoNeb therapy. With that, the patient already improved in the emergency room. We observed 24 hours in the hospital and the patient's condition remained stable. This morning, I saw this patient, she was completely normal, up to her baseline level, and she expressed her wish to go home. PHYSICAL EXAMINATION: VITAL SIGNS: Currently, temperature 97.9, pulse 70, respiratory rate 18, saturation 91% on 2 L, blood pressure 129/55, and weight 196 pounds. GENERAL: The patient is currently alert, awake, no obvious acute distress. HEENT: Head, normocephalic and atraumatic. Eyes; pupils round, reactive to light. Extraocular muscle intact. ENT, oropharynx within normal limits. Moist mucous membranes. NECK: Supple. No JVD. LUNGS: Clear to auscultation without any rhonchi. CARDIAC: S1 and S2, regular. No murmur. ABDOMEN: Soft and benign. EXTREMITIES: No edema. We have not made any change in her discharge medications and she will continue whatever previous admission the patient was discharged with and her son already picked up the prescription from pharmacy and she has it available with her at this point and she has oxygen with her as well. The patient is stable for discharge. Job ID: [id number]
== END 2018-06-06 12:46 | disposition home or self-care (01) | DRG 189 ==
LOC: ERS 10:14 → 2SW 14:09 → OBSVTOIN 14:09
PROVIDERS: ADMIT Internal Medicine; ATTEND Internal Medicine
PROC: 5A09357 Assistance with Respiratory Ventilation, Less than 24 Consecutive Hours, Continuous Positive Airway Pressure (ICD-10-PCS; principal; 2018-06-05)
DX: J96.21 Acute and chronic respiratory failure with hypoxia (principal); J44.1 Chronic obstructive pulmonary disease with (acute) exacerbation; I50.42 Chronic combined systolic (congestive) and diastolic (congestive) heart failure; Z68.42 Body mass index [BMI] 45.0-49.9, adult; J96.22 Acute and chronic respiratory failure with hypercapnia; I11.0 Hypertensive heart disease with heart failure; E66.01 Morbid (severe) obesity due to excess calories; Z99.81 Dependence on supplemental oxygen; M54.5 Low back pain; E78.5 Hyperlipidemia, unspecified; K21.9 Gastro-esophageal reflux disease without esophagitis; M81.0 Age-related osteoporosis without current pathological fracture; F17.210 Nicotine dependence, cigarettes, uncomplicated; Z79.52 Long term (current) use of systemic steroids
CPT/HCPCS: 36415; 71045; 80048; 80053; 82805; 83880; 84484; 85025; 93005; 94640; 94760; J1650; J2920; J7620; J7626

== ENCOUNTER 2018-06-11 12:57 | Emergency (ER) | payer MEDICARE, MEDICAID ==
[2018-06-11] MEDS ORDERED: Ondansetron PF 4 MG/2 ML Vial ONE (14:00)
[2018-06-11] MEDS ORDERED: Morphine 4 MG/ML VIAL ONE (14:00)
[2018-06-11 14:11] LABS: #Eosinphils 0.2 thou/uL (0.0-0.7); #Lymphocytes 1.1 thou/uL (1.20-3.40); #Monocytes 1.1 thou/uL (0.11-0.59); #Neutrophils 14.8 thou/uL (1.40-6.50); %Basophils 0.2 % (0.0-1.0); %Eosinophils 1.1 % (0.0-10.0); %Lymphocytes 6.6 % (21.0-51.0); %Monocytes 6.4 % (0.0-10.0); %Neutrophils 85.7 % (42.0-75.0); Hemoglobin 14.9 g/dL (12.0-16.0); Mean Corpuscular HGB CONC 32.3 g/dL (32.0-36.0); Mean Corpuscular Hemoglobin 31.8 pg (27.0-31.0); Mean Corpuscular Volume 98.2 fL (78.0-98.0); Mean Platelet Volume 7.3 fL (7.4-10.4); Platelet Count 226 thou/uL (130-400); RBC Distribution Width 11.9 % (11.5-14.5); Red Blood Cell (RBC) Count 4.69 mill/uL (4.20-5.40); White Blood Cell (WBC) Count 17.2 thou/uL (4.8-10.8)
--- NOTE | 2018-06-11 14:35 | CT ---
LUMBAR SPINE CT NONCONTRAST: Date: 06/11/18 Reference made to 05/24/18 MRI lumbar spine. CLINICAL INDICATION: History of recent back surgery with low back pain. FINDINGS: Redemonstration of compression deformities of L3 and L4 with moderate L3 and mild to moderate L4 heig ht loss. There is methylmethacrylate within the L3 and L4 vertebral bodies, as well as within the int ervening L4-5 disc space compatible with interval vertebroplasty. Since recent MRI of lumbar spine, t here has been development of a mild to moderate posterior compression fracture of L5 involving both s uperior and inferior end plates. No significant retropulsion of bone. There is osseous demineralizati on. Incidental note of atherosclerosis. IMPRESSION: 1. Interval mild to moderate posterior compression fracture of L5. 2. Vertebroplasty of the previously noted L3 and L4 compression deformities. POS: [facility]
[2018-06-11 14:45] LABS: ALT (SGPT) 24 U/L (8-55); AST (SGOT) 25 U/L (5-34); Albumin 4.2 g/dL (3.4-4.8); Alkaline Phosphatase 99 U/L (40-150); Anion Gap 17 mmol/L (10-20); BUN (Urea Nitrogen) 12 mg/dL (9.8-20.1); Bilirubin, Total 1.6 mg/dL (0.2-1.2); Calc. Creatinine Clearance 0 mL/min (70-130); Calcium 9.4 mg/dL (7.8-10.44); Carbon Dioxide 31 mmol/L (23-31); Chloride 95 mmol/L (98-107); Estimated GFR-MDRD 73; Globulin 2.2 g/dL (2.4-3.5); Glucose 104 mg/dL (80-115); Potassium 5.3 mmol/L (3.5-5.1); Protein, Total 6.4 g/dL (6.0-8.3); Sodium 138 mmol/L (136-145)
[2018-06-11] MEDS ORDERED: Furosemide 40 MG/4 ML VIAL ONE (15:04)
--- NOTE | 2018-06-11 15:19 | RAD ---
PORTABLE AP CHEST X-RAY: 06/11/2018 HISTORY: CHF. COMPARISON: 06/05/2018 FINDINGS: The cardiac silhouette and pulmonary vasculature are within normal limits for the portable technique of the study. Bullous emphysematous changes are seen within the upper lobes with crowding of the bro nchovascular markings at each lung base, with linear densities present in the mid lung zones and in e ach lung base, probably related to areas of scarring. No consolidation or pleural fluid is seen. Th e left lateral costophrenic angle is excluded from view. A curvilinear area of increased density, as well as increased density in the left hilar region, is again seen, likely related to methylmethacryl ate within the pulmonary vessels, secondary to prior vertebroplasty procedure. This is a stable find ing. No other findings. IMPRESSION: 1. Chronic lung changes and evidence of chronic obstructive pulmonary disease. 2. No acute cardiopulmonary process. POS: [facility]
[2018-06-11 15:37] LABS: Bilirubin Negative (Negative); Blood, Urine Moderate (Negative); Clarity CLEAR (Clear); Glucose, Urine (Dipstick) Negative (Negative); Leukocyte Negative (Negative); Nitrite Negative (Negative); Protein, Urine (Dipstick) 30 mg/dL (Neg-Trace)
[2018-06-11 15:39] LABS: Bacteria/HPF None Seen HPF (None Seen); Hyaline Casts/LPF 0-3 HYALINE CAST LPF (0-3 Hyaline); Pathc Cast-AUWi Flag 0.14 (0-2.49); Squamous Epithelial 0-3 HPF (0-3); WBC/HPF 0-3 HPF (0-3)
[2018-06-11 15:50] LABS: RBC/HPF 0-3 HPF (0-3)
[2018-06-11] MEDS ORDERED: HYDROcodone/Acetaminophen 10/325 mg Tablet ONE (18:07)
== END 2018-06-11 18:44 | disposition home or self-care (01) ==
LOC: ERS 12:57
DX: S32.059A Unspecified fracture of fifth lumbar vertebra, initial encounter for closed fracture (principal); E78.5 Hyperlipidemia, unspecified; I11.0 Hypertensive heart disease with heart failure; I50.9 Heart failure, unspecified; J44.9 Chronic obstructive pulmonary disease, unspecified; F17.210 Nicotine dependence, cigarettes, uncomplicated; W19.XXXA Unspecified fall, initial encounter
CPT/HCPCS: 71045; 72131; 80053; 83880; 84484; 85025; 93005; 96374; 96375; 99284; L0639; 81003; 81015; J1940; J2270; J2405

== ENCOUNTER 2018-06-16 20:34 | Inpatient (IN) | payer MEDICARE, MEDICAID ==
[2018-06-16] MEDS ORDERED: methylPREDNISolone Sod Succ/PF 125 MG/2 ML VIAL ONE (20:47)
[2018-06-16 21:13] LABS: #Monocytes 0.5 thou/uL (0.11-0.59); #Neutrophils 13.7 thou/uL (1.40-6.50); %Basophils 0.2 % (0.0-1.0); %Eosinophils 0.2 % (0.0-10.0); %Lymphocytes 6.8 % (21.0-51.0); %Monocytes 3.2 % (0.0-10.0); %Neutrophils 89.7 % (42.0-75.0); Mean Corpuscular HGB CONC 32.5 g/dL (32.0-36.0); Mean Corpuscular Hemoglobin 32.2 pg (27.0-31.0); Mean Corpuscular Volume 99.1 fL (78.0-98.0); Mean Platelet Volume 7.6 fL (7.4-10.4); Platelet Count 245 thou/uL (130-400); RBC Distribution Width 12.5 % (11.5-14.5); Red Blood Cell (RBC) Count 4.36 mill/uL (4.20-5.40); White Blood Cell (WBC) Count 15.3 thou/uL (4.8-10.8)
--- NOTE | 2018-06-16 21:18 | RAD ---
FRONTAL VIEW CHEST: 06/16/18 COMPARISON: 06/11/18 INDICATION: Dyspnea. FINDINGS: There is accentuation of the cardiac silhouette. Patchy bibasilar densities are seen. There is no sig nificant interval change from 06/11/18 exam. IMPRESSION: Stable chest with evidence of COPD and persistent bibasilar densities. POS: [facility]
--- NOTE | 2018-06-16 21:32 | RAD ---
RIGHT HIP TWO VIEWS: 06/16/18 INDICATION: History of right hip pain status post fall. COMPARISON: None. IMPRESSION: No acute fracture or subluxation is evident. There is mild degenerative arthrosis of the right hip. IMPRESSION: No acute osseous abnormality. POS: [facility]
[2018-06-16 21:34] LABS: ALT (SGPT) 32 U/L (8-55); AST (SGOT) 40 U/L (5-34); Albumin 3.9 g/dL (3.4-4.8); Alkaline Phosphatase 107 U/L (40-150); Anion Gap 17 mmol/L (10-20); BUN (Urea Nitrogen) 13 mg/dL (9.8-20.1); Bilirubin, Total 0.8 mg/dL (0.2-1.2); CK (CPK) 1202 U/L (29-168); Calc. Creatinine Clearance 0 mL/min (70-130); Calcium 9.3 mg/dL (7.8-10.44); Carbon Dioxide 28 mmol/L (23-31); Chloride 97 mmol/L (98-107); Estimated GFR-MDRD 70; Globulin 2.4 g/dL (2.4-3.5); Glucose 118 mg/dL (80-115); Potassium 3.6 mmol/L (3.5-5.1); Protein, Total 6.3 g/dL (6.0-8.3); Sodium 138 mmol/L (136-145)
--- NOTE | 2018-06-16 21:34 | RAD ---
AP VIEW OF THE PELVIS: 06/16/18 INDICATION: Fall with pelvic pain. FINDINGS: No definite acute fracture or subluxation is evident. There is vertebroplasty changes at L4 and L3. T here is diffuse osteopenia. The visualized bowel gas pattern is unobstructed. IMPRESSION: No acute osseous abnormality. POS: [facility]
[2018-06-16] MEDS ORDERED: Piperacillin/Tazobactam 4.5 GM VIAL ONE (23:22)
--- NOTE | 2018-06-17 00:13 | HP ---
PRIMARY CARE PHYSICIAN: Patience Mayer MD CHIEF COMPLAINT: Shortness of breath. HISTORY OF PRESENT ILLNESS: The patient is a 68-year-old female with past medical history of end-stage COPD, on 3 L of oxygen, diastolic heart failure, and chronic back pain, who presents to the emergency department for shortness of breath. The patient was recently discharged from the hospital for COPD exacerbation. The patient reports that she did not feel well even when she was discharged and said that she came to the ER on the , but still not feeling well, so that she came back into the ER. The patient uses 3 L of oxygen at home that she has been using. The patient just completed a course of steroids. The patient also reports that she takes Lasix 40 mg b.i.d., but reports that it has not been working for her very well. The patient reports that she is down to one pack of smoking per day. The patient reports that she has rashes under her breasts and in her groin area. The patient also reports that she has bilateral lower extremity swelling and rashes that started after her last hospitalization. The patient was seen in the ER and she was started on vancomycin and Zosyn for suspicion for hospital-acquired pneumonia. The patient denies any other complaints. The patient denies any chest pain. The patient denies any diarrhea, abdominal pain, nausea, or vomiting. PAST MEDICAL HISTORY: COPD, osteoporosis, vertebral compression fracture, hypertension, dyslipidemia, GERD, chronic systolic and diastolic heart failure. PAST SURGICAL HISTORY: Multiple kyphoplasty and hysterectomy. SOCIAL HISTORY: The patient smokes one pack per day. She lives with her son. The patient denies any alcohol or illicit drug use. FAMILY HISTORY: Brother has COPD. Father has COPD and coronary artery disease. ALLERGIES: NO KNOWN ALLERGIES TO ANY MEDICATIONS. REVIEW OF SYSTEMS: CONSTITUTIONAL: Negative for weight loss. SKIN: Reports rashes. EYES: Negative of visual changes. ENT AND MOUTH: Negative for bleeding. CARDIOVASCULAR: Negative for palpitation or chest pain. RESPIRATION: Positive for shortness of breath. GI: Negative for diarrhea. : Negative for dysuria. MUSCULOSKELETAL: Positive for edema. NEUROLOGICAL: Denies any changes to her neurologic symptoms. CURRENT MEDICATIONS: [place], nitroglycerin, Lipitor, vitamin D, Flexeril, Lasix, Atrovent, DuoNeb, lisinopril, Protonix, Fosamax, and Symbicort. PHYSICAL EXAMINATION: VITAL SIGNS: In the ER, reviewed. GENERAL: The patient is noted to be alert, on nasal cannula 3 L. HEENT: Negative for any trauma to head. Ears and nose, negative for any gross abnormalities. Mouth, no exudate noted. NECK: No JVD or lymphadenopathy noted. CARDIOVASCULAR: Limited examination, but distant sound. No murmur, rubs, or gallops. Regular rate and rhythm. RESPIRATORY: Diminished breath sounds. No wheezes appreciated. ABDOMEN: Soft, nontender. Bowel sounds are positive. EXTREMITIES: Bilateral lower extremity edema 4+. Noted rashes more prominent on the left lower extremity. NEURO: The patient is alert. SKIN: The patient noted to have erythematous rash noted in her groin and under her breast area. The patient has been noted to have rashes and erythema noted on her left lower extremity. DIAGNOSTIC STUDIES: The patient's chest x-ray data reviewed and at this point, stable chest with evidence of COPD and persistent bilateral basilar densities noted. Hip and pelvic x-ray negative for acute fracture. LABORATORY DATA: WBC 15.3, hemoglobin 14, hematocrit 43, platelets 245. CMP: Sodium 138, potassium 3.8, chloride 97, carbon dioxide 28, BUN 13, creatinine 0.82, glucose 118. Lactic acid 2.1. AST 40, ALT 32, creatine kinase 1202. Troponin negative. BNP 50.2. ASSESSMENT AND PLAN: 1. Suspected hospital-acquired pneumonia. The patient was admitted for suspected hospital-acquired pneumonia and was started on vancomycin and Zosyn. We will continue vancomycin and Zosyn at this point. Follow up cultures and continue neb treatment. We will hold off any steroids at this point given the patient has received multiple steroid courses recently. 2. Chronic obstructive pulmonary disease exacerbation. Continue antibiotics as mentioned above. Continue nebs and oxygen. We will hold off steroids as the patient has recently completed the steroids course. 3. Bilateral lower extremity edema. BNP within normal limit. I am unclear if this is congestive heart failure exacerbation given her BNP is within normal limit. The patient takes Lasix 40 mg b.i.d. at home. We will start Lasix 40 mg IV twice per day. Fluid restriction 1.5 L per day. The patient recently had echo with ejection fraction of 40% to 45%. We will order lower extremity ultrasound to rule out DVT. 4. Combined systolic and diastolic heart failure. Lasix as mentioned above. Fluid restriction 1.5 L per day. Cardiac diet. Unclear at this point if the patient has acute congestive heart failure exacerbation. We will order a CT of chest without contrast for congestive heart failure and for pneumonia. 5. Bilateral lower extremity cellulitis. More prominent on left than right. Given suspicion for cellulitis, we will order vancomycin and Zosyn. Follow up cultures at this point. 6. Intertrigo. Noted to be at multiple locations under her breasts and groin area. We will start nystatin cream at this point. 7. Elevated CK, unclear etiology. We will trend CK in the morning. Avoiding fluid as at this point it is unclear if the patient is having congestive heart failure exacerbation. We will hold statin at this point. 8. Chronic pain. We will continue patient's home [place]. 9. Deep vein thrombosis prophylaxis, addressed. 10. The patient is a full code. 11. Medical power of mergers and acquisitions attorney, the patient will like her son to make decision if she is not able to. Job ID: [id number]
[2018-06-17 01:06] LABS: Lactic Acid 2.6 mmol/L (0.5-2.2)
[2018-06-17] MEDS: HYDROcodone/Acetaminophen 7.5/325 mg Tablet PO PRN ×4 (01:15→23:27)
[2018-06-17 04:26] VITALS: BMI 46.5
[2018-06-17] MEDS: Budesonide 0.5 MG/2 ML NEB NEB SCH ×2 (07:05→18:39)
[2018-06-17] MEDS ORDERED: Lisinopril 2.5 MG TAB PO SCH (09:00)
[2018-06-17] MEDS: predniSONE 20 MG TAB PO SCH (09:12)
[2018-06-17] MEDS: Cyclobenzaprine 10 MG TAB PO SCH ×3 (09:17→20:59)
--- NOTE | 2018-06-17 10:00 | PDOC.PN ---
- Subjective Encounter Start Date: 06/17/18 Encounter Start Time: 08:00 Subjective: breathing better, still waking up -: will wear jerrod hose to reduce LE swelling - Objective Resuscitation Status - Order Detail: 06/16/18 23:10 Resuscitation Status Routine Resuscitation Status: FULL: Full Resuscitation MAR Reviewed: Yes Vital Signs & Weight: Vital Signs (12 hours) Temp Pulse Resp BP BP Pulse Ox 06/17/18 07:40 97.7 F 71 12 110/65 96 06/17/18 07:06 96 06/17/18 07:05 93 20 96 06/17/18 04:23 97.6 F 106 H 20 148/80 H 93 L 06/17/18 00:44 97.5 F L 96 24 H 155/80 H 96 Weight Weight 238 lb 1.588 oz Result Diagrams: 06/16/18 21:00 06/16/18 21:00 Phys Exam - Physical Examination HEENT: PERRLA, moist MMs Neck: no JVD, supple Respiratory: no wheezing, no rales rhonchi+ Cardiovascular: RRR, no significant murmur Gastrointestinal: soft, non-tender, positive bowel sounds Musculoskeletal: pulses present, edema present Neurological: non-focal, moves all 4 limbs Psychiatric: normal affect, A&O x 3 Dx/Plan (1) Acute on chronic respiratory failure with hypoxia and hypercapnia Code(s): J96.21 - ACUTE AND CHRONIC RESPIRATORY FAILURE WITH HYPOXIA; J96.22 - ACUTE AND CHRONIC RESPIRATORY FAILURE WITH HYPERCAPNIA Status: Acute (2) COPD exacerbation Code(s): J44.1 - CHRONIC OBSTRUCTIVE PULMONARY DISEASE W (ACUTE) EXACERBATION Status: Acute (3) Morbid obesity with BMI of 45.0-49.9, adult Code(s): E66.01 - MORBID (SEVERE) OBESITY DUE TO EXCESS CALORIES; Z68.42 - BODY MASS INDEX (BMI) 45.0-49.9, ADULT Status: Chronic (4) Chronic low back pain Code(s): M54.5 - LOW BACK PAIN; G89.29 - OTHER CHRONIC PAIN Status: Chronic Comment: prior kyphoplasty to lumbar spine (5) Dyslipidemia Code(s): E78.5 - HYPERLIPIDEMIA, UNSPECIFIED Status: Chronic (6) GERD (gastroesophageal reflux disease) Code(s): K21.9 - GASTRO-ESOPHAGEAL REFLUX DISEASE WITHOUT ESOPHAGITIS Status: Chronic Qualifiers: Esophagitis presence: esophagitis presence not specified Qualified Code(s) : K21.9 - Gastro-esophageal reflux disease without esophagitis Comment: on PPI, add Maalox as needed - Plan is on duonebs, prednisone, pulmicort, consult -: PT to mobilize as tolerated -: jerrod hose to LE to reduce edema -: continue oral lasix, likely has diastolic dysfunction/dependant edema -: counselled to stop smoking completely * . Review of Systems - Medications/Allergies Allergies/Adverse Reactions: Allergies Allergy/AdvReac Type Severity Reaction Status Date / Time No Known Allergies Allergy Verified 06/05/18 14:49 Medications: Current Medications Hydrocodone Bitart/Acetaminophen ([place] 7.5/325) 1 tab PO Q6HR PRN PRN Reason: Pain Last Admin: 06/17/18 01:15 Dose: 1 tab Albuterol/Ipratropium (Duoneb) 3 ml NEB QID-RT [facility] Budesonide (Pulmicort Neb Solution) 0.5 mg NEB BID-RT [facility] Last Admin: 06/17/18 07:05 Dose: 0.5 mg Cyclobenzaprine HCl (Flexeril) 5 mg PO TID [facility] Last Admin: 06/17/18 09:17 Dose: 5 mg Lisinopril (Zestril) 2.5 mg PO DAILY [facility] Pantoprazole Sodium (Protonix) 40 mg PO DAILY [facility] Last Admin: 06/17/18 09:12 Dose: 40 mg Prednisone (Prednisone) 40 mg PO QAM-[facility] Stop: 06/21/18 08:01 Last Admin: 06/17/18 09:12 Dose: 40 mg Prednisone (Prednisone) 20 mg PO QAM-[facility]
[2018-06-17] MEDS ORDERED: Budesonide 0.5 MG/2 ML NEB ONE (10:35)
[2018-06-17] MEDS: Furosemide 40 MG TAB PO SCH (14:54)
[2018-06-17] MEDS: Carvedilol 3.125 MG TAB PO SCH (17:11)
[2018-06-17] MEDS ORDERED: Atorvastatin Calcium 10 MG TAB PO SCH (21:00)
--- NOTE | 2018-06-18 02:06 | CON ---
DATE OF CONSULTATION: 06/17/2018 HISTORY OF PRESENT ILLNESS: Erica Carr is a 68-year-old female. She was recently seen by me in the hospital. Unfortunately, she went home and continued to smoke a pack a day. She thinks that it is good that she has gone from four packs a day to one pack a day, but as I have explained to her, she is in the hospital less than a month after being discharged then this means, that she is having down a path which might indicate that she will not survive 2018. She did fall. I have also explained her that she fell because of deconditioning. With her COPD, she does not ambulate at all at home. She wanted to blame her erythema of her legs on her fall, but I have explained to her that is not the problem. She admitted that she did not do anything at home other than sit and smoke. She denies shortness of breath, which worsened when she was discharged from the hospital at this time. PAST MEDICAL HISTORY: Remarkable for; 1. Severe COPD. 2. Osteoporosis. 3. History of vertebral compression fractures. 4. Hypertension. 5. Lipid disorder. 6. Reflux disease. 7. History of systolic and diastolic heart failure. 8. History of kyphoplasty. 9. Status post hysterectomy. SOCIAL HISTORY: She lives with her son. Smokes a pack a day. She does not drink. She does not use drugs. FAMILY HISTORY: Strong positive family history of vascular disease and COPD. ALLERGIES: REPORTS NO DRUG ALLERGIES. REVIEW OF SYSTEMS: Ten-point review of systems completed, negative other than dyspnea on exertion. PHYSICAL EXAMINATION: GENERAL: Erica Carr is a 68-year-old female. VITAL SIGNS: Heart rate is in 70s. She is afebrile. Respiratory rate 17, oximetry is 96% on 3 L, and blood pressure 119/61. HEAD: Unremarkable. NECK: Unremarkable. LUNGS: Remarkable for diffuse mild wheezes. HEART: Regular rhythm. S1 and S2 are normal. ABDOMEN: Soft and nontender. EXTREMITIES: Without clubbing, cyanosis. She has stasis changes in both lower extremities. LABORATORY DATA: White count 15.3 yesterday, hemoglobin 14, and platelets 245. Electrolytes are unremarkable. IMPRESSION: 1. Chronic obstructive pulmonary disease with ongoing heavy tobacco use, severe. 2. Extreme deconditioning status post fall. 3. Chronic lower extremity stasis changes. 4. Obesity. 5. Sleep apnea, suspect. She really should be transferred to a care home facility for rehab. I think if she is not, she will be back here in a week. TIME SPENT: This is a 50-minute consult, with greater than 50% of the time spent on the unit coordinating care. Job ID: [id number] TOR
[2018-06-18] MEDS: HYDROcodone/Acetaminophen 7.5/325 mg Tablet PO PRN ×3 (05:38→18:48)
[2018-06-18] MEDS: Budesonide 0.5 MG/2 ML NEB NEB SCH ×2 (06:44→19:24)
[2018-06-18] MEDS: predniSONE 20 MG TAB PO SCH (08:29)
[2018-06-18] MEDS: Furosemide 40 MG TAB PO SCH ×2 (08:30→14:09)
[2018-06-18] MEDS: Carvedilol 3.125 MG TAB PO SCH ×2 (08:30→17:41)
[2018-06-18] MEDS: Cyclobenzaprine 10 MG TAB PO SCH ×3 (08:30→20:57)
[2018-06-18] MEDS: Losartan 25 MG TAB PO SCH (08:30)
--- NOTE | 2018-06-18 11:41 | PRG ---
DATE OF SERVICE: 06/18/2018 SUBJECTIVE: Erica Carr is complaining of back pain running down the lateral aspect of her right lower extremity. She is seen at the bedside. OBJECTIVE: VITAL SIGNS: She is afebrile. Heart rate 76, respiratory rate is 20, oximetry is 93% on 3 L, blood pressure 114/72. LUNGS: Completely clear now. HEART: Regular rhythm. ABDOMEN: Soft. EXTREMITIES: With chronic stasis changes. IMPRESSION: 1. Chronic obstructive pulmonary disease with mild exacerbation, it is resolved. We will cut her prednisone dosing back to 20 mg a day now. 2. Ongoing tobacco use up until this admission a pack a day. In the past, she smoked 4 packs a day. 3. Osteoporotic compression fractures. We will continue to follow, although I believe her COPD is back to her baseline. I explained to her that she will not live through the year if she resumes smoking when she leaves. I explained this last time and she is back in the hospital, still smoking a pack a day. Job ID: [id number]
--- NOTE | 2018-06-18 13:08 | PQF ---
PALLAVI MORTON, CINDI GIORDANO MD [id number] SURG A- [id number] CLINICAL DOCUMENTATION IMPROVEMENT CLARIFICATION FORM: ICD-10 Updated PLEASE DO AN ADDENDUM TO THE PROGRESS NOTE WITH ANY DOCUMENTATION UPDATES OR ADDITIONS AND CARRY THROUGH TO DC SUMMARY. THANK YOU. DATE: 06/18 ATTN: DR. Roselia MCCABE Please exercise your independent, professional judgment in responding to the clarification form. Clinical indicators are provided on the bottom of this form for your review. Please check appropriate box(s) to clarify if the following diagnosis has been ruled in or ruled out: SUSPECTED HOSPITAL ACQUIRED PNEUMONIA [ ] Ruled in diagnosis [ ] Continue to treat [ ] Resolved [ x] Ruled out diagnosis [x ] Other diagnosis _recurrent copd exacerbation with ongoing tobacco abuse, ac on chr resp failure [ ] Unable to determine In addition, please specify: Present on Admission (POA): [ ] Yes [ x ] No [ ] Unable to determine For continuity of documentation, please document condition throughout progress notes and discharge summary. Thank You. CLINICAL INDICATORS - SIGNS / SYMPTOMS / LABS ER 06/16: COPD EXACERBATION, PNEUMONIA WBC: 15.3 H&P (ELAINE): ASSESSMENT & PLAN: 1) SUSPECTED HOSPITAL-ACQUIRED PNEUMONIA. STARTED ON VANCOMYCIN & ZOSYN. WE WILL CONTINUE VANCOMYCIN & ZOSYN AT THIS POINT CXR 06/16: STABLE CHEST W/EVIDENCE OF COPD & PERSISTENT BIBASILAR DENSITIES. RISKS: SEVERE COPD EXACERBATION RECENT HOSPITALIZATION ONGOING TOBACCO ABUSE TREATMENT: IV ZOSYN & VANCOMYCIN IN ED 06/16 (NOT CONTINUED) PULMONARY CON THANK YOU! Jolene (This form is maintained as a part of the permanent medical record) 2015 [employer]. All Rights Reserved Jolene Dailey RN, BSN [email or web address] Office: [phone] [facility] [email or web address]
[2018-06-18] MEDS ORDERED: Morphine 4 MG/ML VIAL SLOW IVP PRN (14:16)
--- NOTE | 2018-06-18 14:19 | PDOC.PN ---
- Subjective Encounter Start Date: 06/18/18 Encounter Start Time: 11:00 Subjective: c/o b/l leg pain, no sob -: is sitting in chair -: daughter at bedside - Objective Resuscitation Status - Order Detail: 06/16/18 23:10 Resuscitation Status Routine Resuscitation Status: FULL: Full Resuscitation MAR Reviewed: Yes Vital Signs & Weight: Vital Signs (12 hours) Temp Pulse Resp BP Pulse Ox 06/18/18 13:49 74 18 93 L 06/18/18 11:40 97.7 F 97 20 100/64 89 L 06/18/18 10:11 76 20 93 L 06/18/18 08:35 90 L 06/18/18 08:05 97.6 F 91 20 114/72 06/18/18 06:45 95 06/18/18 06:44 83 20 97 06/18/18 06:40 82 20 94 L Weight Weight 238 lb 1.588 oz Result Diagrams: 06/16/18 21:00 06/16/18 21:00 Phys Exam - Physical Examination HEENT: PERRLA, moist MMs Neck: no JVD, supple Respiratory: no wheezing, no rales rhonchi+ Cardiovascular: RRR, no significant murmur Gastrointestinal: soft, non-tender, positive bowel sounds Musculoskeletal: pulses present, edema present Neurological: non-focal, moves all 4 limbs Psychiatric: normal affect, A&O x 3 Dx/Plan (1) Acute on chronic respiratory failure with hypoxia and hypercapnia Code(s): J96.21 - ACUTE AND CHRONIC RESPIRATORY FAILURE WITH HYPOXIA; J96.22 - ACUTE AND CHRONIC RESPIRATORY FAILURE WITH HYPERCAPNIA Status: Acute (2) COPD exacerbation Code(s): J44.1 - CHRONIC OBSTRUCTIVE PULMONARY DISEASE W (ACUTE) EXACERBATION Status: Acute (3) Morbid obesity with BMI of 45.0-49.9, adult Code(s): E66.01 - MORBID (SEVERE) OBESITY DUE TO EXCESS CALORIES; Z68.42 - BODY MASS INDEX (BMI) 45.0-49.9, ADULT Status: Chronic (4) Chronic low back pain Code(s): M54.5 - LOW BACK PAIN; G89.29 - OTHER CHRONIC PAIN Status: Chronic Comment: prior kyphoplasty to lumbar spine (5) Dyslipidemia Code(s): E78.5 - HYPERLIPIDEMIA, UNSPECIFIED Status: Chronic (6) GERD (gastroesophageal reflux disease) Code(s): K21.9 - GASTRO-ESOPHAGEAL REFLUX DISEASE WITHOUT ESOPHAGITIS Status: Chronic Qualifiers: Esophagitis presence: esophagitis presence not specified Qualified Code(s) : K21.9 - Gastro-esophageal reflux disease without esophagitis Comment: on PPI, add Maalox as needed - Plan wants morphine for lower extre pain, is grunting and crying due to pain -: daughter also wants her to have pain meds -: have d/w patient and family about narcotics and resp issues -: awaiting placement, d/w patient and case mgmt -: continue nebs, prednisone, lasix, coreg, cozaar * . Review of Systems - Medications/Allergies Allergies/Adverse Reactions: Allergies Allergy/AdvReac Type Severity Reaction Status Date / Time No Known Allergies Allergy Verified 06/05/18 14:49 Medications: Current Medications Hydrocodone Bitart/Acetaminophen ([place] 7.5/325) 1 tab PO Q6HR PRN PRN Reason: Pain Last Admin: 06/18/18 12:37 Dose: 1 tab Albuterol/Ipratropium (Duoneb) 3 ml NEB QID-RT [facility] Last Admin: 06/18/18 13:49 Dose: 3 ml Budesonide (Pulmicort Neb Solution) 0.5 mg NEB BID-RT [facility] Last Admin: 06/18/18 06:44 Dose: 0.5 mg Carvedilol (Coreg) 3.125 mg PO BID-WM [facility] Last Admin: 06/18/18 08:30 Dose: 3.125 mg Cyclobenzaprine HCl (Flexeril) 5 mg PO TID [facility] Last Admin: 06/18/18 14:09 Dose: 5 mg Furosemide (Lasix) 40 mg PO 0900,1400 [facility] Last Admin: 06/18/18 14:09 Dose: 40 mg Losartan Potassium (Cozaar) 25 mg PO DAILY [facility] Last Admin: 06/18/18 08:30 Dose: 25 mg Morphine Sulfate (Morphine) 2 mg SLOW IVP Q4H PRN PRN Reason: Pain Pantoprazole Sodium (Protonix) 40 mg PO DAILY [facility] Last Admin: 06/18/18 08:29 Dose: 40 mg Prednisone (Prednisone) 20 mg PO QAM-[facility] Stop: 06/21/18 08:01
[2018-06-19] MEDS: HYDROcodone/Acetaminophen 7.5/325 mg Tablet PO PRN ×4 (00:52→22:30)
[2018-06-19] MEDS: Budesonide 0.5 MG/2 ML NEB NEB SCH ×2 (07:11→18:40)
[2018-06-19] MEDS: Losartan 25 MG TAB PO SCH (08:20)
[2018-06-19] MEDS: Furosemide 40 MG TAB PO SCH ×2 (08:21→14:29)
[2018-06-19] MEDS: Cyclobenzaprine 10 MG TAB PO SCH ×3 (08:21→20:19)
[2018-06-19] MEDS: predniSONE 20 MG TAB PO SCH (08:21)
[2018-06-19] MEDS: Carvedilol 3.125 MG TAB PO SCH ×2 (08:21→16:32)
--- NOTE | 2018-06-19 11:40 | PRG ---
DATE OF SERVICE: 06/19/2018 SUBJECTIVE: The patient is complaining of leg pain. OBJECTIVE: VITAL SIGNS: Temperature 97.6, pulse 84, respirations 19, O2 saturation 91% on 3 L, and blood pressure 118/58. HEENT: Unremarkable. NECK: No JVD. LUNGS: No wheezing. CARDIAC: S1 and S2, regular. ABDOMEN: Soft and nontender. EXTREMITIES: She has cellulitis changes over anterior tibial regions bilaterally. LABORATORY DATA: No new labs were obtained today. ASSESSMENT: 1. Cellulitis. 2. Severe chronic obstructive pulmonary disease and tobacco abuse. 3. Osteoporosis. PLAN: From a pulmonary standpoint, she needs to continue the low-dose prednisone and the breathing treatments. Continue treatment of cellulitis per the primary care team. Job ID: [id number]
--- NOTE | 2018-06-19 13:04 | PDOC.PN ---
- Subjective Encounter Start Date: 06/19/18 Encounter Start Time: 07:20 Subjective: c/o leg pain radiating from lower back today -: yesterday the pain was in her leg and foot only -: is requesting more freq doses of morphine - Objective Resuscitation Status - Order Detail: 06/16/18 23:10 Resuscitation Status Routine Resuscitation Status: FULL: Full Resuscitation MAR Reviewed: Yes Vital Signs & Weight: Vital Signs (12 hours) Temp Pulse Resp BP BP Pulse Ox Pulse Ox 06/19/18 11:50 97.6 F 68 24 H 130/74 91 L 06/19/18 10:26 84 19 06/19/18 10:22 91 L 06/19/18 07:40 97 24 H 118/58 L 91 L 06/19/18 07:12 95 06/19/18 07:10 84 18 95 06/19/18 04:00 97.6 F 84 18 110/68 96 Pulse Ox Pulse Ox 06/19/18 11:50 06/19/18 10:26 06/19/18 10:22 87 L 90 L 06/19/18 07:40 06/19/18 07:12 06/19/18 07:10 06/19/18 04:00 Weight Weight 238 lb 1.588 oz I&O: 06/18/18 06/19/18 06/20/18 06:59 06:59 06:59 Intake Total 720 Balance 720 Result Diagrams: 06/16/18 21:00 06/16/18 21:00 Phys Exam - Physical Examination HEENT: PERRLA, moist MMs Neck: no JVD, supple Respiratory: no wheezing, no rales Cardiovascular: RRR, no significant murmur Gastrointestinal: soft, non-tender, positive bowel sounds Musculoskeletal: no edema, pulses present Neurological: non-focal, moves all 4 limbs Psychiatric: normal affect, A&O x 3 Dx/Plan (1) Acute on chronic respiratory failure with hypoxia and hypercapnia Code(s): J96.21 - ACUTE AND CHRONIC RESPIRATORY FAILURE WITH HYPOXIA; J96.22 - ACUTE AND CHRONIC RESPIRATORY FAILURE WITH HYPERCAPNIA Status: Acute (2) COPD exacerbation Code(s): J44.1 - CHRONIC OBSTRUCTIVE PULMONARY DISEASE W (ACUTE) EXACERBATION Status: Acute (3) Morbid obesity with BMI of 45.0-49.9, adult Code(s): E66.01 - MORBID (SEVERE) OBESITY DUE TO EXCESS CALORIES; Z68.42 - BODY MASS INDEX (BMI) 45.0-49.9, ADULT Status: Chronic (4) Chronic low back pain Code(s): M54.5 - LOW BACK PAIN; G89.29 - OTHER CHRONIC PAIN Status: Chronic Comment: prior kyphoplasty to lumbar spine (5) Dyslipidemia Code(s): E78.5 - HYPERLIPIDEMIA, UNSPECIFIED Status: Chronic (6) GERD (gastroesophageal reflux disease) Code(s): K21.9 - GASTRO-ESOPHAGEAL REFLUX DISEASE WITHOUT ESOPHAGITIS Status: Chronic Qualifiers: Esophagitis presence: esophagitis presence not specified Qualified Code(s) : K21.9 - Gastro-esophageal reflux disease without esophagitis Comment: on PPI, add Maalox as needed (7) Chronic pain syndrome Code(s): G89.4 - CHRONIC PAIN SYNDROME Status: Acute (8) Stasis dermatitis of both legs Code(s): I87.2 - VENOUS INSUFFICIENCY (CHRONIC) (PERIPHERAL) Status: Acute - Plan is on low dose iv morphine, flexeril, narco -: watch for resp depression -: is on nebs, prednisone -: awaiting placement -: to wear jerrod hose to decrease edema in LE (noncompliant) * . Review of Systems - Medications/Allergies Allergies/Adverse Reactions: Allergies Allergy/AdvReac Type Severity Reaction Status Date / Time No Known Allergies Allergy Verified 06/05/18 14:49 Medications: Current Medications Hydrocodone Bitart/Acetaminophen ([place] 7.5/325) 1 tab PO Q6HR PRN PRN Reason: Pain Last Admin: 06/19/18 10:28 Dose: 1 tab Albuterol/Ipratropium (Duoneb) 3 ml NEB QID-RT [facility] Last Admin: 06/19/18 10:26 Dose: 3 ml Budesonide (Pulmicort Neb Solution) 0.5 mg NEB BID-RT [facility] Last Admin: 06/19/18 07:11 Dose: 0.5 mg Carvedilol (Coreg) 3.125 mg PO BID-WM [facility] Last Admin: 06/19/18 08:21 Dose: 3.125 mg Cyclobenzaprine HCl (Flexeril) 5 mg PO TID [facility] Last Admin: 06/19/18 08:21 Dose: 5 mg Furosemide (Lasix) 40 mg PO 0900,1400 [facility] Last Admin: 06/19/18 08:21 Dose: 40 mg Losartan Potassium (Cozaar) 25 mg PO DAILY [facility] Last Admin: 06/19/18 08:20 Dose: 25 mg Morphine Sulfate (Morphine) 2 mg SLOW IVP Q4H PRN PRN Reason: Pain IF UNABLE TO TAKE PO Pantoprazole Sodium (Protonix) 40 mg PO DAILY [facility] Last Admin: 06/19/18 08:21 Dose: 40 mg Prednisone (Prednisone) 20 mg PO QA-[facility] Stop: 06/21/18 08:01 Last Admin: 06/19/18 08:21 Dose: 20 mg
[2018-06-20] MEDS: HYDROcodone/Acetaminophen 7.5/325 mg Tablet PO PRN ×4 (05:09→23:03)
[2018-06-20] MEDS: Budesonide 0.5 MG/2 ML NEB NEB SCH ×2 (07:37→19:06)
[2018-06-20] MEDS: predniSONE 20 MG TAB PO SCH (08:08)
[2018-06-20] MEDS: Furosemide 40 MG TAB PO SCH ×2 (08:08→14:16)
[2018-06-20] MEDS: Carvedilol 3.125 MG TAB PO SCH ×2 (08:08→17:18)
[2018-06-20] MEDS: Losartan 25 MG TAB PO SCH (08:08)
[2018-06-20] MEDS: Cyclobenzaprine 10 MG TAB PO SCH ×3 (08:09→21:06)
--- NOTE | 2018-06-20 10:13 | PDOC.PN ---
- Subjective Encounter Start Date: 06/20/18 Encounter Start Time: 08:20 Subjective: no sob, is sitting in her chair -: back and leg pain is better - Objective Resuscitation Status - Order Detail: 06/16/18 23:10 Resuscitation Status Routine Resuscitation Status: FULL: Full Resuscitation MAR Reviewed: Yes Vital Signs & Weight: Vital Signs (12 hours) Temp Pulse Resp BP BP Pulse Ox 06/20/18 07:37 74 20 93 L 06/20/18 07:34 74 20 93 L 06/20/18 07:32 97.6 F 83 22 H 105/58 L 93 L 06/20/18 04:00 98.0 F 85 22 H 106/66 91 L 06/20/18 01:58 77 16 99 Weight Weight 238 lb 1.588 oz I&O: 06/19/18 06/20/18 06/21/18 06:59 06:59 06:59 Intake Total 720 Balance 720 Result Diagrams: 06/16/18 21:00 06/16/18 21:00 Phys Exam - Physical Examination HEENT: PERRLA, moist MMs Neck: no JVD, supple Respiratory: no wheezing, no rales Cardiovascular: RRR, no significant murmur Gastrointestinal: soft, non-tender, positive bowel sounds Musculoskeletal: pulses present, edema present few blisters+ due to edema Neurological: non-focal, moves all 4 limbs Psychiatric: normal affect, A&O x 3 Dx/Plan (1) Acute on chronic respiratory failure with hypoxia and hypercapnia Code(s): J96.21 - ACUTE AND CHRONIC RESPIRATORY FAILURE WITH HYPOXIA; J96.22 - ACUTE AND CHRONIC RESPIRATORY FAILURE WITH HYPERCAPNIA Status: Resolved (2) COPD exacerbation Code(s): J44.1 - CHRONIC OBSTRUCTIVE PULMONARY DISEASE W (ACUTE) EXACERBATION Status: Acute Comment: resolving (3) Morbid obesity with BMI of 45.0-49.9, adult Code(s): E66.01 - MORBID (SEVERE) OBESITY DUE TO EXCESS CALORIES; Z68.42 - BODY MASS INDEX (BMI) 45.0-49.9, ADULT Status: Chronic (4) Chronic low back pain Code(s): M54.5 - LOW BACK PAIN; G89.29 - OTHER CHRONIC PAIN Status: Chronic Comment: prior kyphoplasty to lumbar spine (5) Dyslipidemia Code(s): E78.5 - HYPERLIPIDEMIA, UNSPECIFIED Status: Chronic (6) GERD (gastroesophageal reflux disease) Code(s): K21.9 - GASTRO-ESOPHAGEAL REFLUX DISEASE WITHOUT ESOPHAGITIS Status: Chronic Qualifiers: Esophagitis presence: esophagitis presence not specified Qualified Code(s) : K21.9 - Gastro-esophageal reflux disease without esophagitis Comment: on PPI, add Maalox as needed (7) Chronic pain syndrome Code(s): G89.4 - CHRONIC PAIN SYNDROME Status: Acute (8) Stasis dermatitis of both legs Code(s): I87.2 - VENOUS INSUFFICIENCY (CHRONIC) (PERIPHERAL) Status: Acute - Plan RN will try to get a larger and longer size of jerrod hose for LE edema and st -: -asis dermatitis. Is diuresing well with lasix, still has edema -: on duonebs, prednisone -: morphine, narco prn and flexeril -: coreg, lasix bid, cozaar * . Review of Systems - Medications/Allergies Allergies/Adverse Reactions: Allergies Allergy/AdvReac Type Severity Reaction Status Date / Time No Known Allergies Allergy Verified 06/05/18 14:49 Medications: Current Medications Hydrocodone Bitart/Acetaminophen ([place] 7.5/325) 1 tab PO Q6HR PRN PRN Reason: Pain Last Admin: 06/20/18 05:09 Dose: 1 tab Albuterol/Ipratropium (Duoneb) 3 ml NEB [id number] [facility] Last Admin: 06/20/18 07:34 Dose: 3 ml Budesonide (Pulmicort Neb Solution) 0.5 mg NEB BID-RT [facility] Last Admin: 06/20/18 07:37 Dose: 0.5 mg Carvedilol (Coreg) 3.125 mg PO BID-WM [facility] Last Admin: 06/20/18 08:08 Dose: 3.125 mg Cyclobenzaprine HCl (Flexeril) 5 mg PO TID [facility] Last Admin: 06/20/18 08:09 Dose: 5 mg Furosemide (Lasix) 40 mg PO 0900,1400 [facility] Last Admin: 06/20/18 08:08 Dose: 40 mg Losartan Potassium (Cozaar) 25 mg PO DAILY [facility] Last Admin: 06/20/18 08:08 Dose: 25 mg Morphine Sulfate (Morphine) 2 mg SLOW IVP Q4H PRN PRN Reason: Pain IF UNABLE TO TAKE PO Pantoprazole Sodium (Protonix) 40 mg PO DAILY [facility] Last Admin: 06/20/18 08:08 Dose: 40 mg Prednisone (Prednisone) 20 mg PO QA- EMERY Stop: 06/21/18 08:01 Last Admin: 06/20/18 08:08 Dose: 20 mg
--- NOTE | 2018-06-20 11:22 | PRG ---
DATE OF SERVICE: SUBJECTIVE: The patient is complaining of leg pain. She says her breathing is doing okay. OBJECTIVE: VITAL SIGNS: On exam, temperature is 97.6, pulse 74, respirations 20, O2 saturation 93% on 3.5 L, and blood pressure 105/58. HEENT: Unremarkable. NECK: No JVD. LUNGS: Bilateral end-expiratory wheezing, best heard posteriorly. CARDIAC: S1 and S2, regular. ABDOMEN: Soft. EXTREMITIES: No profound edema. LABORATORY DATA: No labs were obtained today. ASSESSMENT: 1. Cellulitis. 2. Chronic obstructive pulmonary disease with exacerbation. PLAN: Continue steroids and nebulization treatments. She is probably approaching the point where she can be discharged to home. Job ID: [id number]
[2018-06-21] MEDS: Budesonide 0.5 MG/2 ML NEB NEB SCH ×2 (06:30→18:20)
[2018-06-21] MEDS: HYDROcodone/Acetaminophen 7.5/325 mg Tablet PO PRN ×4 (06:34→23:42)
[2018-06-21 07:49] LABS: #Eosinphils 0.1 thou/uL (0.0-0.7); #Lymphocytes 1.6 thou/uL (1.20-3.40); #Monocytes 0.7 thou/uL (0.11-0.59); #Neutrophils 7.5 thou/uL (1.40-6.50); %Basophils 0.3 % (0.0-1.0); %Eosinophils 0.7 % (0.0-10.0); %Lymphocytes 16.3 % (21.0-51.0); %Monocytes 6.9 % (0.0-10.0); %Neutrophils 75.9 % (42.0-75.0); Hemoglobin 13.7 g/dL (12.0-16.0); Mean Corpuscular HGB CONC 31.6 g/dL (32.0-36.0); Mean Corpuscular Hemoglobin 31.8 pg (27.0-31.0); Mean Platelet Volume 7.3 fL (7.4-10.4); Platelet Count 241 thou/uL (130-400); RBC Distribution Width 12.3 % (11.5-14.5); White Blood Cell (WBC) Count 9.8 thou/uL (4.8-10.8)
[2018-06-21 08:14] LABS: Anion Gap 13 mmol/L (10-20); BUN (Urea Nitrogen) 16 mg/dL (9.8-20.1); Calc. Creatinine Clearance 126 mL/min (70-130); Calcium 9.3 mg/dL (7.8-10.44); Carbon Dioxide 37 mmol/L (23-31); Chloride 96 mmol/L (98-107); Estimated GFR-MDRD 77; Glucose 99 mg/dL (80-115); Sodium 142 mmol/L (136-145)
[2018-06-21] MEDS: Losartan 25 MG TAB PO SCH (09:40)
[2018-06-21] MEDS: predniSONE 20 MG TAB PO SCH (09:41)
[2018-06-21] MEDS: Cyclobenzaprine 10 MG TAB PO SCH ×3 (09:42→20:42)
[2018-06-21] MEDS: Carvedilol 3.125 MG TAB PO SCH ×2 (09:43→17:14)
[2018-06-21] MEDS: Furosemide 40 MG TAB PO SCH ×2 (09:43→12:51)
--- NOTE | 2018-06-21 13:00 | PDOC.PN ---
- Subjective Encounter Start Date: 06/21/18 Encounter Start Time: 08:40 Subjective: no sob, feels better - Objective Resuscitation Status - Order Detail: 06/16/18 23:10 Resuscitation Status Routine Resuscitation Status: FULL: Full Resuscitation MAR Reviewed: Yes Vital Signs & Weight: Vital Signs (12 hours) Temp Pulse Resp BP BP Pulse Ox 06/21/18 11:36 98.0 F 89 16 109/78 91 L 06/21/18 08:00 91 L 06/21/18 07:52 97.6 F 46 L 15 128/71 91 L 06/21/18 06:32 95 06/21/18 06:30 80 16 95 06/21/18 06:29 80 16 95 06/21/18 04:00 98.0 F 74 20 101/62 91 L Weight Weight 238 lb 1.588 oz I&O: 06/20/18 06/21/18 06/22/18 06:59 06:59 06:59 Intake Total 510 Balance 510 Result Diagrams: 06/21/18 07:21 06/21/18 07:21 Phys Exam - Physical Examination HEENT: PERRLA, moist MMs Neck: no JVD, supple Respiratory: no wheezing, no rales Cardiovascular: RRR, no significant murmur Gastrointestinal: soft, non-tender, positive bowel sounds Musculoskeletal: pulses present, edema present is wearing jerrod hose with less edema Neurological: non-focal, moves all 4 limbs Psychiatric: normal affect, A&O x 3 Dx/Plan (1) Acute on chronic respiratory failure with hypoxia and hypercapnia Code(s): J96.21 - ACUTE AND CHRONIC RESPIRATORY FAILURE WITH HYPOXIA; J96.22 - ACUTE AND CHRONIC RESPIRATORY FAILURE WITH HYPERCAPNIA Status: Resolved (2) COPD exacerbation Code(s): J44.1 - CHRONIC OBSTRUCTIVE PULMONARY DISEASE W (ACUTE) EXACERBATION Status: Acute Comment: resolving (3) Morbid obesity with BMI of 45.0-49.9, adult Code(s): E66.01 - MORBID (SEVERE) OBESITY DUE TO EXCESS CALORIES; Z68.42 - BODY MASS INDEX (BMI) 45.0-49.9, ADULT Status: Chronic (4) Chronic low back pain Code(s): M54.5 - LOW BACK PAIN; G89.29 - OTHER CHRONIC PAIN Status: Chronic Comment: prior kyphoplasty to lumbar spine (5) Dyslipidemia Code(s): E78.5 - HYPERLIPIDEMIA, UNSPECIFIED Status: Chronic (6) GERD (gastroesophageal reflux disease) Code(s): K21.9 - GASTRO-ESOPHAGEAL REFLUX DISEASE WITHOUT ESOPHAGITIS Status: Chronic Qualifiers: Esophagitis presence: esophagitis presence not specified Qualified Code(s) : K21.9 - Gastro-esophageal reflux disease without esophagitis Comment: on PPI, add Maalox as needed (7) Chronic pain syndrome Code(s): G89.4 - CHRONIC PAIN SYNDROME Status: Acute (8) Stasis dermatitis of both legs Code(s): I87.2 - VENOUS INSUFFICIENCY (CHRONIC) (PERIPHERAL) Status: Acute - Plan hemostable -: on duonebs, mucinex -: lasix bid, has diuresed well -: continue jerrod hose thigh high for stasis dermatitis -: may dc anytime if snf/rehab is ready * . Review of Systems - Medications/Allergies Allergies/Adverse Reactions: Allergies Allergy/AdvReac Type Severity Reaction Status Date / Time No Known Allergies Allergy Verified 06/05/18 14:49 Medications: Current Medications Hydrocodone Bitart/Acetaminophen ([place] 7.5/325) 1 tab PO Q6HR PRN PRN Reason: Pain Last Admin: 06/21/18 12:51 Dose: 1 tab Albuterol/Ipratropium (Duoneb) 3 ml NEB [id number] [facility] Last Admin: 06/21/18 06:29 Dose: 3 ml Budesonide (Pulmicort Neb Solution) 0.5 mg NEB BID-RT [facility] Last Admin: 06/21/18 06:30 Dose: 0.5 mg Carvedilol (Coreg) 3.125 mg PO BID-WM [facility] Last Admin: 06/21/18 09:43 Dose: 3.125 mg Cyclobenzaprine HCl (Flexeril) 5 mg PO TID [facility] Last Admin: 06/21/18 09:42 Dose: 5 mg Enoxaparin Sodium (Lovenox) 40 mg SC 2100 EMERY Furosemide (Lasix) 40 mg PO 0900,1400 [facility] Last Admin: 06/21/18 12:51 Dose: 40 mg Losartan Potassium (Cozaar) 25 mg PO DAILY [facility] Last Admin: 06/21/18 09:40 Dose: 25 mg Morphine Sulfate (Morphine) 2 mg SLOW IVP Q4H PRN PRN Reason: Pain IF UNABLE TO TAKE PO Pantoprazole Sodium (Protonix) 40 mg PO DAILY [facility] Last Admin: 06/21/18 09:42 Dose: 40 mg
[2018-06-21] MEDS ORDERED: Enoxaparin Sodium 40 MG/0.4 ML SYRINGE SC SCH ×2 (13:15→21:00)
--- NOTE | 2018-06-21 13:42 | PRG ---
DATE OF SERVICE: 06/21/2018 SUBJECTIVE: Ms. Carr is clinically unchanged. She relayed to the nurses that she did not think we are doing anything for and wanted to follow complaint. OBJECTIVE: VITAL SIGNS: She is afebrile, heart rate in 80s, respiratory rate 16, oximetry is 91% on 3 L, blood pressure 109/78. LUNGS: Clear. HEART: Regular rhythm. ABDOMEN: Soft. EXTREMITIES: With stasis changes. LABORATORY DATA: Sodium is 142, potassium 4, chloride 96, bicarb 37, BUN 16, and creatinine 0.75. White count 9.8, hemoglobin 13.7, platelets 241,000. ASSESSMENT AND PLAN: We discussed diet and also smoking. We had multiple discussions last time I saw her in the hospital. She has big box of animal cookies and chips and cheeses by the bed that have been more than custodial consumed. We discussed smoking. She says she has cut back from 4 packs a day to 1 pack a day. I have explained to her that lungs are severely damaged and if she continues to smoke after she is discharged, she will not survive to the end of the year. Her deconditioning and her obesity are the biggest factors facing long-term survival. Her lungs are completely clear now. She is steroid dependent. I noticed that she is not on DVT prophylaxis, so this will be started. She needs placement in some sort of skilled facility for physical therapy. Job ID: [id number]
[2018-06-22] MEDS: HYDROcodone/Acetaminophen 7.5/325 mg Tablet PO PRN ×2 (05:06→10:35)
[2018-06-22] MEDS: Budesonide 0.5 MG/2 ML NEB NEB SCH (07:42)
[2018-06-22] MEDS ORDERED: predniSONE 20 MG TAB PO SCH (08:00)
[2018-06-22] MEDS: Losartan 25 MG TAB PO SCH (08:56)
[2018-06-22] MEDS: Carvedilol 3.125 MG TAB PO SCH (08:56)
[2018-06-22] MEDS: Cyclobenzaprine 10 MG TAB PO SCH (08:56)
[2018-06-22] MEDS: Furosemide 40 MG TAB PO SCH (08:56)
[2018-06-22 11:23] VITALS: BP 121/63; TEMP 97.4
--- NOTE | 2018-06-22 11:33 | PDOC.PN ---
- Subjective Encounter Start Date: 06/22/18 Encounter Start Time: 10:00 Subjective: is sitting in chair -: no sob, feels better - Objective Resuscitation Status - Order Detail: 06/16/18 23:10 Resuscitation Status Routine Resuscitation Status: FULL: Full Resuscitation MAR Reviewed: Yes Vital Signs & Weight: Vital Signs (12 hours) Temp Pulse Resp BP Pulse Ox 06/22/18 11:23 97.4 F L 87 16 121/63 95 06/22/18 08:00 98.1 F 79 15 126/74 92 L 06/22/18 07:41 96 06/22/18 07:39 86 20 95 06/22/18 04:37 97.8 F 82 20 106/85 92 L 06/22/18 01:09 77 18 96 06/22/18 00:39 97.5 F L 79 20 104/53 L 95 Weight Weight 238 lb 1.588 oz I&O: 06/21/18 06/22/18 06/23/18 06:59 06:59 06:59 Intake Total 2610 Balance 2610 Result Diagrams: 06/21/18 07:21 06/21/18 07:21 Phys Exam - Physical Examination HEENT: PERRLA, moist MMs Neck: no JVD, supple Respiratory: no wheezing, no rales Cardiovascular: RRR, no significant murmur Gastrointestinal: soft, non-tender, positive bowel sounds Musculoskeletal: pulses present, edema present is wearing jerrod hose Neurological: non-focal, moves all 4 limbs Psychiatric: normal affect, A&O x 3 Dx/Plan (1) Acute on chronic respiratory failure with hypoxia and hypercapnia Code(s): J96.21 - ACUTE AND CHRONIC RESPIRATORY FAILURE WITH HYPOXIA; J96.22 - ACUTE AND CHRONIC RESPIRATORY FAILURE WITH HYPERCAPNIA Status: Resolved (2) COPD exacerbation Code(s): J44.1 - CHRONIC OBSTRUCTIVE PULMONARY DISEASE W (ACUTE) EXACERBATION Status: Acute Comment: resolving (3) Morbid obesity with BMI of 45.0-49.9, adult Code(s): E66.01 - MORBID (SEVERE) OBESITY DUE TO EXCESS CALORIES; Z68.42 - BODY MASS INDEX (BMI) 45.0-49.9, ADULT Status: Chronic (4) Chronic low back pain Code(s): M54.5 - LOW BACK PAIN; G89.29 - OTHER CHRONIC PAIN Status: Chronic Comment: prior kyphoplasty to lumbar spine (5) Dyslipidemia Code(s): E78.5 - HYPERLIPIDEMIA, UNSPECIFIED Status: Chronic (6) GERD (gastroesophageal reflux disease) Code(s): K21.9 - GASTRO-ESOPHAGEAL REFLUX DISEASE WITHOUT ESOPHAGITIS Status: Chronic Qualifiers: Esophagitis presence: esophagitis presence not specified Qualified Code(s) : K21.9 - Gastro-esophageal reflux disease without esophagitis Comment: on PPI, add Maalox as needed (7) Chronic pain syndrome Code(s): G89.4 - CHRONIC PAIN SYNDROME Status: Chronic (8) Stasis dermatitis of both legs Code(s): I87.2 - VENOUS INSUFFICIENCY (CHRONIC) (PERIPHERAL) Status: Acute - Plan hemostable -: has been accepted to [facility] -: dc pt to snf -: meds reconciled * .
--- NOTE | 2018-06-23 14:11 | DIS ---
DATE OF ADMISSION: 06/16/2018 DATE OF DISCHARGE: 06/22/2018 DISCHARGE DISPOSITION: [facility]. PRIMARY DISCHARGE DIAGNOSES: [id number] obstructive pulmonary disease exacerbation with likely end-stage chronic obstructive pulmonary disease, [id number] respiratory failure with hypoxia and hypercapnia, morbid obesity, chronic low back pain, dyslipidemia, ongoing tobacco abuse, chronic pain syndrome, stasis dermatitis of both lower extremities, and gastroesophageal reflux disease. PROCEDURES DONE DURING HOSPITALIZATION: Chest x-ray done showed no acute changes. Pelvic AP view x-ray showed no acute osseous abnormality. Right hip two-view x- ray done showed no acute osseous abnormality. Blood cultures x2, no growth. H and H 13 and 43, platelet count 241, BUN 16, creatinine 0.7. BNP 80. INPATIENT CONSULT: Dr. Caldwell/Dr. Hunter for Pulmonology. DISCHARGE PLAN: The patient is to follow up with primary care physician in one week and Dr. Caldwell in 4 weeks. BRIEF COURSE DURING HOSPITALIZATION: The patient initially came to ER with complaints of shortness of breath. She has known history of COPD on 3 L of home oxygen at home. She had ongoing tobacco abuse, and apparently has come down to one pack a day from three packs a day before that. She was recently hospitalized for COPD flare-up and was again hospitalized for the same this time. There is no infiltrate as such when compared to prior x-rays. She was placed on a brief course of steroids along with nebulization and has responded well. She has severe deconditioning and is being discharged to [facility] for further recuperation prior to going home. She was counseled regarding cessation of complete tobacco use. A total of 35 minutes was spent on discharge plan. Please see a [id number] documentation for the day of discharge on General Blood. Please note, the patient has bilateral lower extremity edema with some stasis dermatitis. She is stable on a [employer] hose. She sits for long time in her chair and has been counseled to elevate her legs to reduce the edema. She also was counseled with regard to using less of narcotics in view of almost end-stage COPD. Job ID: [id number] [facility]
== END 2018-06-22 11:35 | DRG 189 ==
LOC: ERS 20:34 → SURG A 21:20
PROVIDERS: ADMIT Family Medicine; ATTEND Family Medicine
DX: J96.21 Acute and chronic respiratory failure with hypoxia (principal); J44.1 Chronic obstructive pulmonary disease with (acute) exacerbation; I50.42 Chronic combined systolic (congestive) and diastolic (congestive) heart failure; L03.116 Cellulitis of left lower limb; L03.115 Cellulitis of right lower limb; Z68.42 Body mass index [BMI] 45.0-49.9, adult; J96.22 Acute and chronic respiratory failure with hypercapnia; Z99.81 Dependence on supplemental oxygen; I11.0 Hypertensive heart disease with heart failure; F17.210 Nicotine dependence, cigarettes, uncomplicated; L30.4 Erythema intertrigo; G89.4 Chronic pain syndrome; M54.5 Low back pain; I87.2 Venous insufficiency (chronic) (peripheral); E66.01 Morbid (severe) obesity due to excess calories; K21.9 Gastro-esophageal reflux disease without esophagitis; E78.5 Hyperlipidemia, unspecified; M81.0 Age-related osteoporosis without current pathological fracture; Z79.52 Long term (current) use of systemic steroids
CPT/HCPCS: 36415; 71045; 72170; 80048; 80053; 82550; 83605; 83880; 84484; 85025; 87040; 94640; 96365; 96366; 96367; 96375; 99406; J1650; J2543; J2930; J3370; J7620; J7626

== ENCOUNTER 2018-07-06 08:35 | Emergency (ER) | payer MEDICARE, MEDICAID ==
[2018-07-06] MEDS ORDERED: Ketorolac Tromethamine 30 MG/ML VIAL ONE (09:00)
--- NOTE | 2018-07-06 09:23 | RAD ---
THERE VIEWS SACRUM/COCCYX: Comparison: None. History: Worsening chronic back pain for one day. FINDINGS: Three views of the sacrum/coccyx shows no evidence of sacral or coccygeal fracture. Sacral ala are sy mmetric. Sacroiliac joints and pubic symphysis are unremarkable. IMPRESSION: No significant sacral or coccygeal abnormality. POS: C
--- NOTE | 2018-07-06 10:28 | RAD ---
LUMBAR SPINE 3 VIEWS: Date: 07/06/18 INDICATION: Worsening chronic low back pain. COMPARISON: Prior CT lumbar spine dated 06/11/18. FINDINGS: Wedge compression abnormalities and kyphoplasty change involving L3 and L4 are stable. The mild poste rior wedge deformity at L5 is stable. No acute fracture or subluxation is evident. There is diffuse o steopenia. IMPRESSION: 1. No acute osseous abnormality. 2. Stable wedge compression abnormalities at L5 with vertebroplasty change at L3 and L4. POS: [facility]
== END 2018-07-06 11:07 | disposition home or self-care (01) ==
LOC: ERS 08:35
DX: M54.5 Low back pain (principal); E78.5 Hyperlipidemia, unspecified; I11.0 Hypertensive heart disease with heart failure; I50.9 Heart failure, unspecified; J44.9 Chronic obstructive pulmonary disease, unspecified; F17.210 Nicotine dependence, cigarettes, uncomplicated; Z79.899 Other long term (current) drug therapy
CPT/HCPCS: 72100; 72220; 96372; J1885

== ENCOUNTER 2018-07-13 07:56 | Outpatient (CLI) | payer MEDICARE, MEDICAID ==
--- NOTE | 2018-07-13 08:47 | RAD ---
TWO VIEWS CHEST: HISTORY: Dyspnea. FINDINGS: Two views chest were obtained. Mild pulmonary vascular congestion is seen. No evidence of effusions, pneumonia, or pneumothorax see n. Osteoporosis is seen in the thoracic spine. Pulmonary vascular congestion. POS: [facility]
== END 2018-07-13 07:57 | disposition home or self-care (01) ==
LOC: RAD 07:56
PROVIDERS: ATTEND Internal Medicine Critical Care Medicine
DX: R06.00 Dyspnea, unspecified (principal)
CPT/HCPCS: 36415; 71046; 82533

== ENCOUNTER 2018-10-25 10:23 | Outpatient (CLI) | payer MEDICARE, MEDICAID ==
--- NOTE | 2018-10-25 12:16 | MRI ---
Exam: MRI cervical spine without contrast HISTORY: Cervical radiculopathy. Neck pain. Numbness.. COMPARISON: None FINDINGS: Appropriate T1 marrow signal intensity of the cervical vertebra. Cervical spine vertebral body heigh t is maintained. No fracture. No significant STIR hyperintensity to suggest vertebral body edema or ligamentous injury. Visualized brain parenchyma, cervicomedullary junction, cervical cord, and the upper thoracic cord campos ve a normal size and signal intensity. C2-C3: No significant central canal stenosis or neural foraminal narrowing. C3-C4: No significant central canal stenosis. Bilateral uncovertebral hypertrophy results in mild to moderate right and mild left foraminal narrowing. C4-C5: There is a central disc protrusion that abuts the thecal sac. Mild central canal stenosis. Mil d right and moderate left foraminal narrowing. C5-C6: Broad-based disc bulge abuts the thecal sac. There is a left paracentral component. Mild centr al canal stenosis. Moderate bilateral foraminal narrowing due to uncovertebral hypertrophy. C6-C7: Moderate loss of disc space height. Broad-based disc bulge causes mass effect upon the thecal sac. Subarachnoid space is effaced. Deformity of the cervical cord. Moderate central canal stenosis. Moderate to severe bilateral foraminal narrowing due to uncovertebral hypertrophy. C7-T1: No significant central canal stenosis. Mild to moderate right foraminal narrowing. Left neural foramen is patent. IMPRESSION: 1. Moderate central canal stenosis at C6-C7. There is also moderate to severe bilateral foraminal julissa rowing. 2. Mild to moderate right neural foraminal narrowing at C7-T1. 3. Moderate left foraminal narrowing at C4-C5. Transcribed Date/Time: 10/25/2018 1:35 PM
--- NOTE | 2018-10-25 12:46 | RAD ---
Exam: CERVICAL SPINE 5 VIEWS: HISTORY: Cervical radiculopathy. COMPARISON: None. FINDINGS: On the AP projection, there is facet hypertrophy. No fracture or malalignment. Limited evaluation of the cervical spine in the neutral lateral, lateral flexion, and lateral extension views. Visualized cervical spine vertebral body heights maintained. In the neutral position, there is no significant sp ondylolisthesis. No abnormal motion upon flexion or extension. Cervicothoracic junction is unremarkable on the swimmer's view. Predental space is normal. IMPRESSION: No significant degenerative change. Additional imaging if clinically warranted Transcribed Date/Time: 10/25/2018 1:38 PM
== END 2018-10-25 10:24 | disposition home or self-care (01) ==
LOC: BICMRI 10:23
PROVIDERS: ATTEND Nurse Practitioner Family
DX: M54.12 Radiculopathy, cervical region (principal); M48.02 Spinal stenosis, cervical region; M48.03 Spinal stenosis, cervicothoracic region
CPT/HCPCS: 72050; 72141

== ENCOUNTER 2019-05-23 12:09 | Inpatient (IN) | payer MEDICARE, MEDICAID ==
[2019-05-23] MEDS ORDERED: methylPREDNISolone Sod Succ/PF 125 MG/2 ML VIAL ONE (12:33)
[2019-05-23] MEDS ORDERED: Cefepime 2 GM VIAL ONE (12:33)
--- NOTE | 2019-05-23 12:44 | RAD ---
EXAM: CHEST ONE VIEW HISTORY: Dyspnea. COMPARISON: 07/13/2018 FINDINGS: Cardiac silhouette is magnified by projection and patient rotation. There is increased linear and pat chai densities at the right lung base which may be related to patient rotation and overlying soft tissue density. However, developing pneumonitis or volume loss right lung base is a possibility. Emph ysematous changes are seen in the upper lobes with crowding of bronchovascular markings at each lung base. Vascular calcifications are seen in the thoracic aorta. Osteopenia is present. IMPRESSION: Chronic lung changes and evidence of COPD. There is suggested patchy and linear densities at the righ t lung base, but this may be a factor of crowding of bronchovascular markings and overlying soft tissue density related to patient rotation. However, pneumonitis or atelectasis right lung base is a possibility. Follow-up evaluation is suggested.
[2019-05-23 12:47] LABS: #Lymphocytes 1.1 thou/uL (1.20-3.40); #Monocytes 0.6 thou/uL (0.11-0.59); #Neutrophils 5.3 thou/uL (1.40-6.50); %Basophils 0.2 % (0.0-1.0); %Eosinophils 0.3 % (0.0-10.0); %Lymphocytes 15.7 % (21.0-51.0); %Monocytes 8.2 % (0.0-10.0); %Neutrophils 75.6 % (42.0-75.0); Hemoglobin 13.4 g/dL (12.0-16.0); Mean Corpuscular HGB CONC 32.2 g/dL (32.0-36.0); Mean Corpuscular Hemoglobin 30.8 pg (27.0-31.0); Mean Corpuscular Volume 95.8 fL (78.0-98.0); Mean Platelet Volume 7.8 fL (7.4-10.4); Platelet Count 170 thou/uL (130-400); RBC Distribution Width 11.6 % (11.5-14.5); Red Blood Cell (RBC) Count 4.34 mill/uL (4.20-5.40)
[2019-05-23 13:14] LABS: ALT (SGPT) 28 U/L (8-55); AST (SGOT) 34 U/L (5-34); Albumin 3.9 g/dL (3.4-4.8); Alkaline Phosphatase 68 U/L (40-110); Anion Gap 11 mmol/L (10-20); BUN (Urea Nitrogen) 9 mg/dL (9.8-20.1); Bilirubin, Total 0.6 mg/dL (0.2-1.2); Calc. Creatinine Clearance 0 mL/min (70-130); Calcium 8.7 mg/dL (7.8-10.44); Carbon Dioxide 34 mmol/L (23-31); Chloride 96 mmol/L (98-107); Estimated GFR-MDRD 80; Globulin 2.6 g/dL (2.4-3.5); Glucose 133 mg/dL (80-115); Protein, Total 6.5 g/dL (6.0-8.3); Sodium 137 mmol/L (136-145)
[2019-05-23 13:26] LABS: Bacteria/HPF None Seen HPF (None Seen); Bilirubin Negative (Negative); Blood, Urine 3+ (Negative); Clarity Clear (Clear); Glucose, Urine (Dipstick) Normal (Negative); Leukocyte Negative Leu/uL (Negative); Nitrite Negative (Negative); Protein, Urine (Dipstick) 70 mg/dL (Neg-Trace); RBC/HPF 21-50 HPF (0-3); Squamous Epithelial 0-3 HPF (0-3); Urobilinogen Normal mg/dL (Less than 2); WBC/HPF 0-3 HPF (0-3)
[2019-05-23 13:31] LABS: Mucous/LPF 1+ LPF (<2+)
[2019-05-23 13:40] LABS: Actual Bicarbonate (HCO3a) 36.4 mEq/L (22-28); Analyzer IN Cardio ER; Base Excess (BEa) 6.1 mEq/L (-2.0 to +3.0); Calcium, Ionized 1.14 mmol/L (1.12-1.30); Carboxyhemoglobin (COHb) 0.6 gm% (0.0-3.0); Hemoglobin (Hb) 14.3 g/dL (12.0-16.0); O2 Tension (PaO2) 90.7 mmHg (> 80.0); pH, Arterial 7.26 (7.35-7.45)
[2019-05-23 13:41] LABS: Puncture Site RB
--- NOTE | 2019-05-23 14:21 | PDOC.FPRHP ---
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 Endorses subjective fever/chills, temp as high as 100.0 at home. Has had associated worsening productive cough, increased and thicker sputum. Denies hemoptysis. Has been hospitalized for COPD in the past. She is on daily steroid, prednisone, which she has been adherent to. She has also consistently been taking inhalers however, she does not take nebs at home because they make her jittery. Denies any abdominal pain, n/v. Denies any falls, trauma. C/o chronic back pain and worsening neck pain. ED Course: Vanc 1g, Cefepime 2g, DuoNeb, Methylprednisolone 125mg, NS 1L - Allergies/Adverse Reactions Allergies Allergy/AdvReac Type Severity Reaction Status Date / Time No Known Allergies Allergy Verified 06/05/18 14:49 - Home Medications Medication Instructions Recorded Confirmed Type Atorvastatin Calcium 10 mg PO HS 05/25/18 05/23/19 History Cholecalciferol (Vitamin D3) 50,000 unit PO Q7D 05/25/18 05/23/19 History [Vitamin D] Furosemide 40 mg PO BID 05/25/18 05/23/19 History HYDROcodone Bit/APAP 7.5/325 1 tab PO Q6HR PRN 05/25/18 05/23/19 History [[place]] Nitroglycerin [Nitrostat] 0.4 mg SL Q5MIN PRN 05/25/18 05/23/19 History Pantoprazole [Protonix] 40 mg PO DAILY 05/25/18 05/23/19 History Ipratropium/Albuterol Sulfate 3 ml NEB QID 05/31/18 05/23/19 History [DuoNeb] Ipratropium [Atrovent HFA] 2 puff INH QID PRN 06/01/18 05/23/19 History Alendronate Sodium [Fosamax] 70 mg PO Q7D #4 tab 06/04/18 05/23/19 Rx Budesonide 0.5 mg NEB BID #60 neb 06/04/18 05/23/19 Rx Carvedilol [Coreg] 3.125 mg PO BID-WM #60 tab 06/21/18 05/23/19 Rx Losartan [Cozaar] 25 mg PO DAILY #30 tab 06/21/18 05/23/19 Rx predniSONE [Prednisone] 5 mg PO DAILY 05/23/19 05/23/19 History - History PMHx: Steroid Dependent COPD, CHF (Echo 05/2018: EF 40-45%), HLD, HTN PSHx: Hysterectomy, Back surgery, Heart cath (no stents) FHx: CAD, COPD, DM Social: smokes approximately 1ppd, was smoking 3 ppd, denies alcohol, drug use - Review of Systems General: reports: fever/chills, weight/appetite/sleep changes, fatigue. denies : night sweats Eyes: denies: eye pain, vision changes ENT: denies: nasal congestion, rhinorrhea Respiratory: reports: cough, shortness of breath Cardiovascular: denies: chest pain, palpitation, edema Gastrointestinal: reports: diarrhea. denies: nausea, vomiting, constipation, abdominal pain Genitourinary: denies: dysuria, polyuria Skin: denies: rashes, lesions, jaundice Musculoskeletal: reports: pain, tenderness, arthritis/arthralgias. denies: stiffness, swelling Neurological: reports: weakness. denies: numbness, syncope Psychological: denies: anxiety, depression - Vital signs BP: 121/54 HR: 67 RR: 12 Tmax: 97.7 Pox: 95% on BiPAP Wt: 90 kg - Physical Exam Constitutional: awake, alert and oriented, well developed HEENT: normocephalic and atraumatic, PERRLA, EOMI, conjunctiva clear, grossly normal vision, grossly normal hearing, MMM Neck: supple, FROM, trachea midline Heart: RRR, normal S1/S2, no murmurs/rubs/gallops, pulses present Lungs: no respiratory distress, other (bilateral expiratory wheezes, decreased air movement, on BiPap) Abdomen: soft, non-tender, bowel sounds present Musculoskeletal: normal structure, normal tone, ROM grossly normal Neurological: no focal deficit, CN II-XII intact Skin: no rash/lesions, good turgor, capillary refill <2 seconds Heme/Lymphatic: no unusual bruising or bleeding, no purpura, no petechia Psychiatric: normal mood and affect, good judgment and insight, intact recent and remote memory FMR H&P: Results - Labs Result Diagrams: 05/23/19 12:25 05/23/19 12:22 Lab results: WBC 7.0 thou/uL (4.8-10.8) 05/23/19 12:25 Hgb 13.4 g/dL (12.0-16.0) 05/23/19 12:25 Hct 41.6 % (36.0-47.0) 05/23/19 12:25 MCV 95.8 fL (78.0-98.0) 05/23/19 12:25 Plt Count 170 thou/uL (130-400) 05/23/19 12:25 Neutrophils % 75.6 % (42.0-75.0) H 05/23/19 12:25 ABG pH 7.26 (7.35-7.45) L 05/23/19 12:25 ABG pCO2 83.0 mmHg (35.0-45.0) H* 05/23/19 12:25 ABG pO2 90.7 mmHg (> 80.0) H 05/23/19 12:25 Sodium 137 mmol/L (136-145) 05/23/19 12:22 Potassium 4.0 mmol/L (3.5-5.1) 05/23/19 12:22 Chloride 96 mmol/L (98-107) L 05/23/19 12:22 Carbon Dioxide 34 mmol/L (23-31) H 05/23/19 12:22 BUN 9 mg/dL (9.8-20.1) L 05/23/19 12:22 Creatinine 0.73 mg/dL (0.6-1.1) 05/23/19 12:22 Glucose 133 mg/dL (80-115) H 05/23/19 12:22 Lactic Acid 1.3 mmol/L (0.5-2.2) 05/23/19 12:23 Calcium 8.7 mg/dL (7.8-10.44) 05/23/19 12:22 Total Bilirubin 0.6 mg/dL (0.2-1.2) 05/23/19 12:22 AST 34 U/L (5-34) 05/23/19 12:22 ALT 28 U/L (8-55) 05/23/19 12:22 Alkaline Phosphatase 68 U/L (40-110) 05/23/19 12:22 Serum Total Protein 6.5 g/dL (6.0-8.3) 05/23/19 12:22 Albumin 3.9 g/dL (3.4-4.8) 05/23/19 12:22 Urine Ketones Trace mg/dL (Negative) A 05/23/19 12:58 Urine Blood 3+ (Negative) A 05/23/19 12:58 Urine Nitrite Negative (Negative) 05/23/19 12:58 Ur Leukocyte Esterase Negative Gely/uL (Negative) 05/23/19 12:58 Urine RBC 21-50 HPF (0-3) A 05/23/19 12:58 Urine WBC 0-3 HPF (0-3) 05/23/19 12:58 Ur Squamous Epith Cells 0-3 HPF (0-3) 05/23/19 12:58 Urine Bacteria None Seen HPF (None Seen) 05/23/19 12:58 - Radiology Interpretation Chest x-ray Status: report reviewed by me (IMPRESSION: Chronic lung changes and evidence of COPD. There is suggested patchy and linear densities at the right lung base, but this may be a factor of crowding of bronchovascular markings and overlying soft tissue density related to patient rotation. However, pneumonitis or atelectasis right lung base is a possibility. Follow-up evaluation is suggested. ) FMR H&P: A/P - Problem List (1) COPD exacerbation Current Visit: No Status: Acute Code(s): J44.1 - CHRONIC OBSTRUCTIVE PULMONARY DISEASE W (ACUTE) EXACERBATION Comment: resolving (2) Chronic combined systolic (congestive) and diastolic (congestive) heart failure Current Visit: No Status: Chronic Code(s): I50.42 - CHRONIC COMBINED SYSTOLIC AND DIASTOLIC HRT FAIL (3) Chronic low back pain Current Visit: No Status: Chronic Code(s): M54.5 - LOW BACK PAIN; G89.29 - OTHER CHRONIC PAIN Comment: prior kyphoplasty to lumbar spine (4) Dyslipidemia Current Visit: No Status: Chronic Code(s): E78.5 - HYPERLIPIDEMIA, UNSPECIFIED (5) GERD (gastroesophageal reflux disease) Current Visit: No Status: Chronic Code(s): K21.9 - GASTRO-ESOPHAGEAL REFLUX DISEASE WITHOUT ESOPHAGITIS Qualifiers: Esophagitis presence: esophagitis presence not specified Qualified Code(s) : K21.9 - Gastro-esophageal reflux disease without esophagitis Comment: on PPI, add Maalox as needed (6) Morbid obesity with BMI of 45.0-49.9, adult Current Visit: No Status: Chronic Code(s): E66.01 - MORBID (SEVERE) OBESITY DUE TO EXCESS CALORIES; Z68.42 - BODY MASS INDEX (BMI) 45.0-49.9, ADULT (7) Acute on chronic respiratory failure with hypoxia and hypercapnia Current Visit: No Status: Resolved Code(s): J96.21 - ACUTE AND CHRONIC RESPIRATORY FAILURE WITH HYPOXIA; J96.22 - ACUTE AND CHRONIC RESPIRATORY FAILURE WITH HYPERCAPNIA - Plan Acute hypoxic, hypercapnic respiratory failure, likely 2/2 COPD exacerbation On initial evaluation with EMS, she was 72%. ABG shows pH 7.26, CO2 83.0, and O2 90.7. Improved with BiPap. Tight breath sounds heard bilaterally. Will continue BiPap/CPAP tonight, consulted pulmonology She received vancomycin and cefepime in the ED for suspected pneumonia, we will discontinue this as we do not suspect pneumonia at this time. Repeat CXR tomorrow morning, procal pending. COPD Exacerbation Will start Azithromycin, Prednisone and Duonebs scheduled. Albuterol neb prn. Consulted pulmonology, Dr. Farfan, she has seen Dr. Caldwell in the past. CHF Last echo 05/2018 showed EF of 40-45% w/ grade 1/3 diastolic dysfunction Will continue Coreg and Lasix. Strict I/o and daily weight. Received 1L fluids in the ED, will d/c fluids. Heart Healthy diet. HTN Will restart home Losartan HLD Will continue atorvastatin Chronic pain She sees Dr. Christy outpatient and takes [place] at home. Will continue home [place]. Disposition/LOS: Dispo: Guarded, admit to IMCU. Expected length of stay >48hours. Code: BRITTANY PCP: ANA MARIA England VTE: Lovenox FMR H&P: Upper Level - Plan Date/Time: 05/23/19 1419 IGetachew MD, have evaluated this patient and agree with findings/plan as outlined by engineer internship resident. Pertinent changes/additions are listed here. Erica Carr is a 69 year old F with a PMH of steroid dependent COPD on baseline home O2 requirement of 4 L NC, CHF (last Echo in 05/2018, EF 40-45%), HLD, Chronic low back pain management by Pain specialist who presents to the ED with a 1-2 wk history of worsening shortness of breath. She has had associated worsening productive cough with brown sputum, dyspnea and developed weakness over the last couple days, unable to perform unassisted transfers. Also has associated subjective fever/chills, highest recorded temp at home was 100.1. States that she has been adherent to steroid regimen but denies consistent use of inhalers. Has required increased use of nebulizer. Dr. Caldwell is her salesperson meats. When EMS arrived to patients home, O2 sat was 70% off O2. Placed on CPAP and O2 sat improved. Pertinent labs in ED showed WBC 7.0, trop 0.012, Na 137, K 4.0, Cr 0.73, Lactic acid 1.3, Influenza neg, CXR showed chronic changes consistent with COPD and patchy linear densities at right lung base, could represent atelectasis vs pneumonitis. EKG showed sinus rhythm with infrequent premature ventricular contractions, no ST changes. In the ED, she was started on BiPAP and given duonebs X2, 1 L NS, Vancomycin and Cefepime. Admitting patient to IMCU for acute hypercapneic hypoxic respiratory failure 2/ 2 COPD exacerbation. No fever, No elevated WBC count, lactic acid normal will check procalcitonin due to suspicion of pneumonia. Will continue duonebs, steroids, and change antibiotics to IV azithromycin. Continue mIVFs. Continue BiPAP, wean as tolerated. Will notify Dr. Caldwell, patients salesperson meats, about patients admission. Anticipate hospital stay >48 hours. Please see engineer internship note above for full H&P, which I have reviewed and agree with. Code Status: DNAR Attending: ANYA England Addendum - Attending - Attending Attestation Date/Time: 05/23/19 1897 I personally evaluated the patient and discussed the management with Dr. Neff/ Yasmany. I agree with the History, Examination, Assessment and Plan documented above with any addition or exceptions noted below. Patient with history of chronic hypoxia requiring O2 therapy from COPD with chronic productive cough presents with progressively worsening dyspnea and worse cough despite home meds. She admits she has not been using her neb treatments as rx'd. Denies worsening edema, objective fever. Reports increasing weakness. On exam, she is on Bipap therapy, somewhat improved. She has diminished air entry and expiratory wheezes and prolonged exhalation. She is tachycardic, the rest of her exam is noncontributory. Her ABG shows hypercapnia. She will be admitted to [facility] for acute on chronic hypoxic resp failure and acute hypercapnic resp failure 2/2 COPD exacerbation. Bipap, steroids, Azithromycin. Pulm consult. Do not have high suspicion at this time for PNA. Resume home meds. Further mgmt per clinical course.
[2019-05-23] MEDS ORDERED: Ondansetron ODT 4 MG TAB PO PRN (15:04)
[2019-05-23] MEDS ORDERED: HYDROcodone/Acetaminophen 10/325 mg Tablet PO PRN (15:04)
[2019-05-23] MEDS ORDERED: Guaifenesin DM 100-10/5 ML UDCUP PO PRN (15:04)
[2019-05-23 17:01] LABS: Troponin I 0.021 ng/mL (< 0.028)
[2019-05-23] MEDS: Carvedilol 3.125 MG TAB PO SCH (17:58)
[2019-05-23] MEDS: Azithromycin 500 MG in Sodium Chloride 0.9% 250 ML 250 ML IVPB SCH (20:35)
[2019-05-23] MEDS: Atorvastatin Calcium 10 MG TAB PO SCH (20:35)
[2019-05-23] MEDS ORDERED: Furosemide 40 MG TAB PO SCH (21:00)
[2019-05-23 21:55] LABS: Troponin I Less than 0.010 ng/mL (< 0.028)
[2019-05-24 04:29] LABS: Anion Gap 13 mmol/L (10-20); BUN (Urea Nitrogen) 9 mg/dL (9.8-20.1); Calc. Creatinine Clearance 118 mL/min (70-130); Calcium 8.5 mg/dL (7.8-10.44); Carbon Dioxide 31 mmol/L (23-31); Chloride 100 mmol/L (98-107); Estimated GFR-MDRD Greater than 90; Glucose 113 mg/dL (80-115); Potassium 4.5 mmol/L (3.5-5.1); Sodium 139 mmol/L (136-145)
[2019-05-24] MEDS: HYDROcodone/Acetaminophen 5/325 mg Tablet PO PRN (04:42)
[2019-05-24] MEDS: Furosemide 40 MG TAB PO SCH ×2 (04:44→15:19)
[2019-05-24 05:36] LABS: #Lymphocytes 0.9 thou/uL (1.20-3.40); #Monocytes 0.3 thou/uL (0.11-0.59); #Neutrophils 3.4 thou/uL (1.40-6.50); %Basophils 0.3 % (0.0-1.0); %Eosinophils 0.2 % (0.0-10.0); %Lymphocytes 19.7 % (21.0-51.0); %Monocytes 5.8 % (0.0-10.0); %Neutrophils 73.9 % (42.0-75.0); Hemoglobin 12.4 g/dL (12.0-16.0); Mean Corpuscular HGB CONC 32.3 g/dL (32.0-36.0); Mean Corpuscular Hemoglobin 30.8 pg (27.0-31.0); Mean Corpuscular Volume 95.3 fL (78.0-98.0); Mean Platelet Volume 8.4 fL (7.4-10.4); Platelet Count 133 thou/uL (130-400); RBC Distribution Width 11.6 % (11.5-14.5); Red Blood Cell (RBC) Count 4.04 mill/uL (4.20-5.40); White Blood Cell (WBC) Count 4.6 thou/uL (4.8-10.8)
--- NOTE | 2019-05-24 05:48 | PDOC.FM ---
- Subjective Subjective: Ms. Carr is doing well this morning. She is on nasal cannula breathing well this morning. She states her breathing feels better. However, she does complain of increased chronic back pain. - Objective MAR Reviewed: Yes Vital Signs & Weight: Vital Signs (12 hours) Temp Pulse Resp Pulse Ox 05/24/19 04:05 62 18 99 05/24/19 03:45 97.0 F L 05/24/19 00:32 55 L 16 99 05/24/19 00:31 55 L 16 99 05/24/19 00:00 97.2 F L 05/23/19 22:40 79 16 99 05/23/19 20:00 97 05/23/19 19:33 97.9 F 05/23/19 18:12 72 19 99 Weight Weight 89.358 kg Most Recent Monitor Data Heart Rate from ECG 74 NIBP 111/58 NIBP BP-Mean 75 Respiration from ECG 23 SpO2 100 Result Diagrams: 05/24/19 05:01 05/24/19 03:30 Phys Exam - Physical Examination Constitutional: NAD HEENT: moist MMs, sclera anicteric Neck: supple, full ROM Respiratory: no wheezing, no rales, no rhonchi Tight breath sounds bilaterally more air movement than yesterday Cardiovascular: RRR, no significant murmur, no rub Gastrointestinal: soft, non-tender, no distention Musculoskeletal: no edema, pulses present Neurological: non-focal, normal sensation Psychiatric: normal affect, A&O x 3 Skin: no rash, normal turgor Dx/Plan (1) COPD exacerbation Code(s): J44.1 - CHRONIC OBSTRUCTIVE PULMONARY DISEASE W (ACUTE) EXACERBATION Status: Acute (2) Chronic combined systolic (congestive) and diastolic (congestive) heart failure Code(s): I50.42 - CHRONIC COMBINED SYSTOLIC AND DIASTOLIC HRT FAIL Status: Chronic (3) Chronic low back pain Code(s): M54.5 - LOW BACK PAIN; G89.29 - OTHER CHRONIC PAIN Status: Chronic (4) Dyslipidemia Code(s): E78.5 - HYPERLIPIDEMIA, UNSPECIFIED Status: Chronic (5) GERD (gastroesophageal reflux disease) Code(s): K21.9 - GASTRO-ESOPHAGEAL REFLUX DISEASE WITHOUT ESOPHAGITIS Status: Chronic Qualifiers: Esophagitis presence: esophagitis presence not specified Qualified Code(s) : K21.9 - Gastro-esophageal reflux disease without esophagitis (6) Morbid obesity with BMI of 45.0-49.9, adult Code(s): E66.01 - MORBID (SEVERE) OBESITY DUE TO EXCESS CALORIES; Z68.42 - BODY MASS INDEX (BMI) 45.0-49.9, ADULT Status: Chronic (7) Acute on chronic respiratory failure with hypoxia and hypercapnia Code(s): J96.21 - ACUTE AND CHRONIC RESPIRATORY FAILURE WITH HYPOXIA; J96.22 - ACUTE AND CHRONIC RESPIRATORY FAILURE WITH HYPERCAPNIA Status: Resolved - Plan Plan: Acute hypoxic, hypercapnic respiratory failure, likely 2/2 COPD exacerbation On initial evaluation with EMS, she was 72%. ABG in ED showed pH 7.26, CO2 83.0 , and O2 90.7. Improved with BiPap. Tight breath sounds heard bilaterally. Will continue BiPap/CPAP tonight, consulted pulmonology She received vancomycin and cefepime in the ED for suspected pneumonia, we will discontinue this as we do not suspect pneumonia at this time. Procalcitonin negative. CXR this morning not read yet, does not appear to be improved from yesterday. COPD Exacerbation, Severe COPD Will start Azithromycin, Prednisone and Duonebs scheduled. Albuterol neb prn. Consulted pulmonology, Dr. Farfan, she has seen Dr. Caldwell in the past. She is on 4L NC at home and 5mg prednisone daily at baseline. CHF Last echo 05/2018 showed EF of 40-45% w/ grade 1/3 diastolic dysfunction Will continue Coreg and Lasix. Strict I/o and daily weight. Received 1L fluids in the ED, will d/c fluids. Heart Healthy diet. HTN Will restart home Losartan HLD Will continue atorvastatin Chronic pain She sees Dr. Christy outpatient and takes [place] at home. Will continue home [place]. Disposition/LOS: Dispo: Stable, inpatient. Code: DNAR PCP: ANA MARIA England VTE: Lovenox Addendum - Attending - Attending Attestation Date/Time: 05/24/19 9213 I personally evaluated the patient and discussed the management with Dr. Neff. I agree with the History, Examination, Assessment and Plan documented above with any addition or exceptions noted below. Pt has been weaned off bipap and is on 2L oxygen via nasal canula. This is lower than her home dose. Will transfer out of the [facility]. Continue nebs, steroids, azithromycin. Continue home pain meds.
--- NOTE | 2019-05-24 07:53 | RAD ---
EXAM: CHEST ONE VIEW HISTORY: COPD, dyspnea. Follow-up evaluation. COMPARISON: 05/23/2019 FINDINGS: Cardiac silhouette is magnified by projection does appear mildly enlarged. Pulmonary vasculature is w ithin normal limits. Again noted are emphysematous changes in the upper lobes with crowding of bronchovascular markings at each lung base. Minimal patchy densities are seen at the right lung base which is probably related to chronic lung changes although superimposed acute pneumonitis cannot be excluded. No consolidation or pleural fluid is identified. Osteopenia is present. No other interval c hange. IMPRESSION: Chronic lung changes with evidence of COPD. Superimposed pneumonitis right lung base cannot be entire ly excluded.
[2019-05-24] MEDS: predniSONE 20 MG TAB PO SCH (08:34)
[2019-05-24] MEDS: Carvedilol 3.125 MG TAB PO SCH ×2 (08:35→17:57)
[2019-05-24] MEDS: Losartan 25 MG TAB PO SCH (08:35)
[2019-05-24] MEDS: Enoxaparin Sodium 40 MG/0.4 ML SYRINGE SC SCH (08:35)
[2019-05-24] MEDS ORDERED: Polyethylene Glycol 3350 17 GM Packet PO SCH (11:30)
[2019-05-24] MEDS ORDERED: Senokot S 8.6-50 MG TAB PO SCH (11:45)
--- NOTE | 2019-05-24 12:06 | CON ---
DATE OF CONSULTATION: 05/24/2019 SERVICE: Pulmonary Medicine. REASON FOR VISIT: COPD exacerbation. HISTORY OF PRESENT ILLNESS: The patient is a 69-year-old white female with past medical history significant for COPD. She follows with Dr. Caldwell in the outpatient setting. She was in her usual state of health until 3 days prior to admission, when she started having increasing cough, dyspnea on exertion, and sputum production. She initially was bringing up white phlegm, but it quickly turned dark and brown in color. It was foul smelling and tasted terrible. She ended up having a day or two of nausea and vomiting. She did have a sick contact. That person was identified as having the flu. She is having temperatures up to 101, myalgia, as well as malaise. Ultimately, she presented to the Emergency Department. She was put on steroids, antibiotics, nebulized medications, and overnight, her respiratory status improved dramatically. She has been on a BiPAP break this morning. She is talking in full sentences and does not appear in any apparent distress. Otherwise, she is returning to her usual state of health and has no specific complaints. PAST MEDICAL HISTORY: 1. Chronic hypoxic respiratory failure. 2. COPD. 3. Osteoporosis. 4. History of compression fractures. 5. Hypertension. 6. Dyslipidemia. 7. Gastroesophageal reflux disease. 8. Chronic systolic and diastolic heart failure. PAST SURGICAL HISTORY: 1. Kyphoplasty, multiple. 2. Hysterectomy. SOCIAL HISTORY: Negative for alcohol or illicit drug use. She continues to smoke periodically. She lives with her son. Denies any street drugs. FAMILY HISTORY: Noncontributory. ALLERGIES: NO KNOWN DRUG ALLERGIES. MEDICATIONS: List of her inpatient medications was reviewed. No specific updates were made at this time. REVIEW OF SYSTEMS: General, head, ears, eyes, nose, throat, cardiovascular, respiratory, GI, , musculoskeletal, neurologic, and skin are negative except as mentioned in HPI. PHYSICAL EXAMINATION: VITAL SIGNS: Afebrile, pulse 63, blood pressure 127/63, respirations 13, and saturation 100%, currently on 2 L nasal cannula. GENERAL: The patient is awake and alert, in no apparent distress. LUNGS: Good air entry. Rhonchi and prolonged expiratory phase are present. I do not appreciate any wheezing unless there is forced exhalation. HEART: Normal rate. Regular. ABDOMEN: Soft, nontender, and nondistended. Bowel sounds are positive. MUSCULOSKELETAL: No cyanosis or clubbing. No pitting in the bilateral lower extremities. NEUROLOGIC: Grossly nonfocal. LABORATORY DATA: WBC 4.6, hemoglobin 12.4, and platelets of 133,000. Differential is returning to normal. A pH of 7.26, pCO2 of 83, pO2 of 91, corresponding to a saturation of 97% while wearing BiPAP with 40% FiO2. Basic metabolic profile is essentially unremarkable. Troponins unremarkable x3. Procalcitonin is negative and lactate 1.3. Liver function studies were previously unremarkable. Urinalysis is negative for infectious profile. Urine culture and influenza A and B are unremarkable on this presentation. Blood cultures x2 are also negative. IMAGING: Chest x-ray demonstrates possible infiltrate in the right base. ASSESSMENT: 1. Acute on chronic hypoxic and hypercapnic respiratory failure. 2. Chronic obstructive pulmonary disease with acute exacerbation. 3. Community-acquired pneumonia, possible. 4. Chronic systolic and diastolic heart failure, close to euvolemia. DISCUSSION AND PLAN: The patient is stable for transition out of the IMCU to the medical unit. Pulmonary/Critical Care will continue to follow along closely while she remains in-house. Dr. Caldwell has an established relationship with Ms. Carr and will assume coverage tomorrow. 70 minutes have been devoted to this patient in various activities. I personally reviewed all imaging studies and laboratory data noted within this document. For fifty percent of this time, I was interacting with the patient at the bedside or coordinating care with the care team. For the remainder of the time I was immediately available to the patient in the hospital unit. Job ID: [id number] [id number]
[2019-05-24] MEDS: HYDROcodone/Acetaminophen 10/325 mg Tablet PO PRN ×3 (12:22→23:41)
[2019-05-24] MEDS: Azithromycin 500 MG in Sodium Chloride 0.9% 250 ML 250 ML IVPB SCH (16:27)
[2019-05-24] MEDS: Albuterol Sulfate 2.5 mg/3 ml Neb NEB PRN (17:06)
[2019-05-24] MEDS: Senokot S 8.6-50 MG TAB PO SCH (20:17)
[2019-05-24] MEDS: Atorvastatin Calcium 10 MG TAB PO SCH (20:17)
[2019-05-25] MEDS: Furosemide 40 MG TAB PO SCH ×2 (05:14→13:55)
[2019-05-25] MEDS: HYDROcodone/Acetaminophen 10/325 mg Tablet PO PRN ×3 (05:34→19:08)
--- NOTE | 2019-05-25 07:24 | PDOC.FM ---
- Subjective Subjective: Patient is complaining of not feeling well this morning. She cannot localize what is wrong, but she does not feel well. She is working harder to breathe this morning. - Objective MAR Reviewed: Yes Vital Signs & Weight: Vital Signs (12 hours) Temp Pulse Resp BP Pulse Ox 05/25/19 04:00 98.0 F 61 20 116/77 98 05/25/19 02:29 58 L 13 100 05/25/19 02:28 58 L 13 100 05/25/19 00:37 59 L 16 100 05/24/19 23:47 97.6 F 63 20 103/64 98 05/24/19 22:26 69 18 100 05/24/19 20:17 97 05/24/19 19:28 97.8 F 73 20 126/73 97 Weight Admit Weight 89.358 kg Weight 86.636 kg Most Recent Monitor Data Heart Rate from ECG 66 NIBP 111/51 NIBP BP-Mean 71 Respiration from ECG 21 SpO2 100 I&O: 05/24/19 05/25/19 05/26/19 06:59 06:59 06:59 Intake Total 550 720 Output Total 500 2200 Balance 50 -1480 Result Diagrams: 05/24/19 05:01 05/24/19 03:30 Phys Exam - Physical Examination Constitutional: NAD HEENT: PERRLA, moist MMs, sclera anicteric Neck: no JVD, supple Poor air movement, breath sounds not well heard. Cardiovascular: RRR, no significant murmur Gastrointestinal: soft, non-tender Musculoskeletal: no edema Neurological: non-focal, normal sensation Psychiatric: A&O x 3 Skin: no rash, normal turgor Dx/Plan (1) COPD exacerbation Code(s): J44.1 - CHRONIC OBSTRUCTIVE PULMONARY DISEASE W (ACUTE) EXACERBATION Status: Acute (2) Chronic combined systolic (congestive) and diastolic (congestive) heart failure Code(s): I50.42 - CHRONIC COMBINED SYSTOLIC AND DIASTOLIC HRT FAIL Status: Chronic (3) Chronic low back pain Code(s): M54.5 - LOW BACK PAIN; G89.29 - OTHER CHRONIC PAIN Status: Chronic (4) Dyslipidemia Code(s): E78.5 - HYPERLIPIDEMIA, UNSPECIFIED Status: Chronic (5) GERD (gastroesophageal reflux disease) Code(s): K21.9 - GASTRO-ESOPHAGEAL REFLUX DISEASE WITHOUT ESOPHAGITIS Status: Chronic Qualifiers: Esophagitis presence: esophagitis presence not specified Qualified Code(s) : K21.9 - Gastro-esophageal reflux disease without esophagitis (6) Morbid obesity with BMI of 45.0-49.9, adult Code(s): E66.01 - MORBID (SEVERE) OBESITY DUE TO EXCESS CALORIES; Z68.42 - BODY MASS INDEX (BMI) 45.0-49.9, ADULT Status: Chronic (7) Acute on chronic respiratory failure with hypoxia and hypercapnia Code(s): J96.21 - ACUTE AND CHRONIC RESPIRATORY FAILURE WITH HYPOXIA; J96.22 - ACUTE AND CHRONIC RESPIRATORY FAILURE WITH HYPERCAPNIA Status: Resolved - Plan Plan: Acute hypoxic, hypercapnic respiratory failure, likely 2/2 COPD exacerbation On initial evaluation with EMS, she was 72%. ABG in ED showed pH 7.26, CO2 83.0 , and O2 90.7. She received vancomycin and cefepime in the ED for suspected pneumonia, we will discontinue this as we do not suspect pneumonia at this time. Procalcitonin negative. Using BiPap at night. This morning she was working harder to breathe and not moving air well. Will transfer back to [facility] for BiPap and closer monitoring. COPD Exacerbation, Severe COPD Will start Azithromycin, Prednisone and Duonebs scheduled. Albuterol neb prn. She is on 4L NC at home and 5mg prednisone daily at baseline. Adolph saw her yesterday, Paulette plans to see her today. Appreciate recs. CHF Last echo 05/2018 showed EF of 40-45% w/ grade 1/3 diastolic dysfunction Will continue Coreg and Lasix. Strict I/o and daily weight. Received 1L fluids in the ED, will d/c fluids. Heart Healthy diet. HTN Will restart home Losartan HLD Will continue atorvastatin Chronic pain She sees Dr. Christy outpatient and takes [place] at home. Will continue home [place]. Disposition/LOS: Dispo: Stable, inpatient. Code: DNAR PCP: ANA MARIA England VTE: Lovenox Addendum - Attending - Attending Attestation Date/Time: 05/25/19 9535 I personally evaluated the patient and discussed the management with Dr. Ga. I agree with the History, Examination, Assessment and Plan documented above with any addition or exceptions noted below. The patient began having increased work of breathing this morning. She was hypoxic. Patient is restarting bipap. Will transfer to the [facility]. Awaiting pulm eval.
[2019-05-25] MEDS: Albuterol Sulfate 2.5 mg/3 ml Neb NEB PRN (08:09)
--- NOTE | 2019-05-25 08:33 | PDOC.EVN ---
Event Note - Event Note Event Note: On 05/25/2019 at approximately 0815 the Resident Team was notified that the patient was having worsening SOB when compared to her baseline on 05/24/2019. A DuoNeb was started, but the patient continued to be SOB despite being on 3L of O2 via NC. Respiratory Therapy was present at the time of evaluation, and agreed that the patient was having a greatly increased WOB, with minimal air movement and mild expiratory wheezes heard diffusely throughout the lower lung chin. The decision to transfer the patient to the [facility] in order to receive BiPap was made, with the intention of starting it on the floor prior to transfer.
[2019-05-25] MEDS: Enoxaparin Sodium 40 MG/0.4 ML SYRINGE SC SCH (09:00)
[2019-05-25] MEDS: Senokot S 8.6-50 MG TAB PO SCH ×2 (09:37→20:14)
[2019-05-25] MEDS: Carvedilol 3.125 MG TAB PO SCH ×2 (09:37→16:13)
[2019-05-25] MEDS: Polyethylene Glycol 3350 17 GM Packet PO SCH (09:38)
[2019-05-25] MEDS: Losartan 25 MG TAB PO SCH (09:38)
[2019-05-25] MEDS: predniSONE 20 MG TAB PO SCH (09:38)
[2019-05-25] MEDS ORDERED: Bisacodyl 5 MG TAB PO PRN (09:39)
[2019-05-25] MEDS: HYDROcodone/Acetaminophen 5/325 mg Tablet PO PRN (13:58)
[2019-05-25] MEDS: Azithromycin 500 MG in Sodium Chloride 0.9% 250 ML 250 ML IVPB SCH (16:12)
--- NOTE | 2019-05-25 19:33 | PRG ---
DATE OF SERVICE: 05/25/2019 SUBJECTIVE: Ms. Carr says she is feeling better. She was seen by my associate yesterday. OBJECTIVE: VITAL SIGNS: She is afebrile. Heart rate is in the 70s, respiratory rates in the teens, oximetry is 97, and blood pressure 120/74. LUNGS: Remarkable for diffuse wheezes that are mild. HEART: Regular rhythm. ABDOMEN: Soft. EXTREMITIES: Without edema. LABORATORY DATA: White count 4.6, hemoglobin 12.4, and platelets 133. Electrolytes are normal. BUN 9, creatinine 0.65. IMPRESSION: 1. Chronic obstructive pulmonary disease exacerbation, slowly improving. 2. ? early pneumonia. 3. History of hypertension. She overall appears to be stable. We will evaluate her again in the morning. Job ID: [id number]
[2019-05-25] MEDS: Atorvastatin Calcium 10 MG TAB PO SCH (20:14)
[2019-05-26] MEDS: HYDROcodone/Acetaminophen 10/325 mg Tablet PO PRN ×4 (01:17→19:00)
--- NOTE | 2019-05-26 05:47 | PDOC.FM ---
- Subjective Subjective: Doing much better this morning. She believes her respiratory distress yesterday was in relation to her back pain level. - Objective MAR Reviewed: Yes Vital Signs & Weight: Vital Signs (12 hours) Temp Pulse Resp BP BP Pulse Ox 05/26/19 02:04 10 L 99 05/26/19 02:03 72 10 L 99 05/26/19 00:05 147/80 H 05/25/19 23:46 67 16 98 05/25/19 22:01 70 16 99 05/25/19 20:03 94 L 05/25/19 19:39 98.0 F 68 20 123/81 94 L 05/25/19 18:52 66 16 97 Weight Admit Weight 89.358 kg Weight 85.729 kg Most Recent Monitor Data Heart Rate from ECG 66 NIBP 111/51 NIBP BP-Mean 71 Respiration from ECG 21 SpO2 100 I&O: 05/24/19 05/25/19 05/26/19 06:59 06:59 06:59 Intake Total 292 759 6875 Output Total 500 2200 800 Balance 50 -1480 470 Result Diagrams: 05/24/19 05:01 05/24/19 03:30 Phys Exam - Physical Examination Constitutional: NAD HEENT: PERRLA, moist MMs Neck: no JVD, supple Respiratory: no rales, no rhonchi, wheezing present Tight breath sounds bilaterally. Cardiovascular: RRR, no significant murmur, no rub Gastrointestinal: soft, non-tender Musculoskeletal: no edema, pulses present Neurological: non-focal, normal sensation, moves all 4 limbs Psychiatric: normal affect, A&O x 3 Skin: no rash, normal turgor Dx/Plan (1) COPD exacerbation Code(s): J44.1 - CHRONIC OBSTRUCTIVE PULMONARY DISEASE W (ACUTE) EXACERBATION Status: Acute (2) Chronic combined systolic (congestive) and diastolic (congestive) heart failure Code(s): I50.42 - CHRONIC COMBINED SYSTOLIC AND DIASTOLIC HRT FAIL Status: Chronic (3) Chronic low back pain Code(s): M54.5 - LOW BACK PAIN; G89.29 - OTHER CHRONIC PAIN Status: Chronic (4) Dyslipidemia Code(s): E78.5 - HYPERLIPIDEMIA, UNSPECIFIED Status: Chronic (5) GERD (gastroesophageal reflux disease) Code(s): K21.9 - GASTRO-ESOPHAGEAL REFLUX DISEASE WITHOUT ESOPHAGITIS Status: Chronic Qualifiers: Esophagitis presence: esophagitis presence not specified Qualified Code(s) : K21.9 - Gastro-esophageal reflux disease without esophagitis (6) Morbid obesity with BMI of 45.0-49.9, adult Code(s): E66.01 - MORBID (SEVERE) OBESITY DUE TO EXCESS CALORIES; Z68.42 - BODY MASS INDEX (BMI) 45.0-49.9, ADULT Status: Chronic - Plan Plan: Acute hypoxic, hypercapnic respiratory failure, likely 2/2 COPD exacerbation She received vancomycin and cefepime in the ED for suspected pneumonia, we will discontinue this as we do not suspect pneumonia at this time. Procalcitonin negative. Using BiPap at night. Yesterday her respiratory status fluctuated and she required BiPap mid morning. However she improved with the BiPap and was able to remain on the Medical Floor. Dr. Caldwell saw the patient yesterday. Will continue to monitor. COPD Exacerbation, Severe COPD Will start Azithromycin, Prednisone and Duonebs scheduled. Albuterol neb prn. She is on 4L NC at home and 5mg prednisone daily at baseline. Pulmonology consulted, appreciate recommendations. CHF Last echo 05/2018 showed EF of 40-45% w/ grade 1/3 diastolic dysfunction Will continue Coreg and Lasix. Strict I/o and daily weight. Received 1L fluids in the ED, will d/c fluids. Heart Healthy diet. HTN Will restart home Losartan HLD Will continue atorvastatin Chronic pain She sees Dr. Christy outpatient and takes [place] at home. Will continue home [place]. Disposition/LOS: Dispo: Stable, inpatient. Code: BRITTANY PCP: ANA MARIA England VTE: Lovenox Addendum - Attending - Attending Attestation Date/Time: 05/26/19 8724 I personally evaluated the patient and discussed the management with Dr. Neff. I agree with the History, Examination, Assessment and Plan documented above with any addition or exceptions noted below. Patient is feeling better. Will get 2 view CXR to better look for infiltrate. Continue steroids, antibiotics.
[2019-05-26] MEDS: Furosemide 40 MG TAB PO SCH ×2 (06:12→14:25)
[2019-05-26] MEDS: Losartan 25 MG TAB PO SCH (08:43)
[2019-05-26] MEDS: predniSONE 20 MG TAB PO SCH (08:43)
[2019-05-26] MEDS: Carvedilol 3.125 MG TAB PO SCH ×2 (08:43→17:02)
[2019-05-26] MEDS: Enoxaparin Sodium 40 MG/0.4 ML SYRINGE SC SCH (08:44)
[2019-05-26] MEDS: Polyethylene Glycol 3350 17 GM Packet PO SCH (08:44)
--- NOTE | 2019-05-26 13:54 | RAD ---
CHEST TWO VIEWS: 05/26/2019 PROVIDED CLINICAL HISTORY: Evidence for pneumonia. COMPARISON: 05/24/2019 FINDINGS: The cardiac and mediastinal silhouette is unchanged in appearance. Bibasilar parenchymal opacities ar e noted that may reflect subsegmental atelectasis or pneumonia. There is no pleural fluid or pneumoth orax apparent. Vascular calcification is demonstrated. IMPRESSION: Bibasilar subsegmental atelectatic change and/or infiltrate. Followup is recommended. POS: TPC
[2019-05-26 14:25] VITALS: BMI 40.8
--- NOTE | 2019-05-26 16:02 | PRG ---
DATE OF SERVICE: 05/26/2019 SUBJECTIVE: Erica Carr says she is starting to feel better. OBJECTIVE: VITAL SIGNS: She is afebrile, heart rate 76, respiratory rate is 20 oximetry is 93. LUNGS: Remarkable for diffuse wheezes, but these are improved and distant. HEART: Regular rhythm. ABDOMEN: Soft. IMPRESSION: 1. Chronic obstructive pulmonary disease exacerbation. 2. Noncompliance with smoking cessation. She was perhaps 4 packs a day and is down to about a half a pack or little more. We did again discuss smoking cessation. Chest x-ray still shows no clear-cut infiltrates. Her bibasilar changes most likely are secondary to mucus plugging associated with chronic obstructive pulmonary disease exacerbation. In my opinion, she could be treated with p.o. antimicrobial therapy. Job ID: [id number]
[2019-05-26] MEDS: Azithromycin 500 MG in Sodium Chloride 0.9% 250 ML 250 ML IVPB SCH (17:02)
[2019-05-26] MEDS: Atorvastatin Calcium 10 MG TAB PO SCH (20:10)
[2019-05-27] MEDS: HYDROcodone/Acetaminophen 10/325 mg Tablet PO PRN ×3 (01:38→12:40)
[2019-05-27] MEDS: Furosemide 40 MG TAB PO SCH ×2 (05:40→14:36)
--- NOTE | 2019-05-27 08:30 | PDOC.FM ---
- Subjective Subjective: Doing well this morning. Feels back at baseline. - Objective MAR Reviewed: Yes Vital Signs & Weight: Vital Signs (12 hours) Temp Pulse Resp BP Pulse Ox 05/27/19 07:41 90 L 05/27/19 07:39 65 16 90 L 05/27/19 04:00 97.8 F 68 18 136/64 93 L 05/27/19 03:36 75 12 95 05/27/19 00:14 63 16 95 05/26/19 23:56 97.7 F 74 16 148/85 H 94 L 05/26/19 21:31 64 16 91 L Weight Admit Weight 89.358 kg Weight 85.729 kg Most Recent Monitor Data Heart Rate from ECG 66 NIBP 111/51 NIBP BP-Mean 71 Respiration from ECG 21 SpO2 100 I&O: 05/26/19 05/27/19 05/28/19 06:59 06:59 06:59 Intake Total 1270 1000 Output Total 800 300 Balance 470 700 Result Diagrams: 05/24/19 05:01 05/24/19 03:30 Phys Exam - Physical Examination Constitutional: NAD HEENT: PERRLA, moist MMs Neck: no JVD, supple Respiratory: no rales, no rhonchi, wheezing present Moving much more air this morning. Cardiovascular: RRR, no significant murmur, no rub Gastrointestinal: soft, non-tender Musculoskeletal: no edema, pulses present Neurological: non-focal, normal sensation Psychiatric: normal affect, A&O x 3 Skin: no rash, normal turgor Dx/Plan (1) COPD exacerbation Code(s): J44.1 - CHRONIC OBSTRUCTIVE PULMONARY DISEASE W (ACUTE) EXACERBATION Status: Acute (2) Chronic combined systolic (congestive) and diastolic (congestive) heart failure Code(s): I50.42 - CHRONIC COMBINED SYSTOLIC AND DIASTOLIC HRT FAIL Status: Chronic (3) Chronic low back pain Code(s): M54.5 - LOW BACK PAIN; G89.29 - OTHER CHRONIC PAIN Status: Chronic (4) Dyslipidemia Code(s): E78.5 - HYPERLIPIDEMIA, UNSPECIFIED Status: Chronic (5) GERD (gastroesophageal reflux disease) Code(s): K21.9 - GASTRO-ESOPHAGEAL REFLUX DISEASE WITHOUT ESOPHAGITIS Status: Chronic Qualifiers: Esophagitis presence: esophagitis presence not specified Qualified Code(s) : K21.9 - Gastro-esophageal reflux disease without esophagitis (6) Morbid obesity with BMI of 45.0-49.9, adult Code(s): E66.01 - MORBID (SEVERE) OBESITY DUE TO EXCESS CALORIES; Z68.42 - BODY MASS INDEX (BMI) 45.0-49.9, ADULT Status: Chronic - Plan Plan: Acute hypoxic, hypercapnic respiratory failure, likely 2/2 COPD exacerbation, resolved O2 saturations have improved. Dr. Caldwell is on board, appreciate recommendations. COPD Exacerbation, Severe COPD Will start Azithromycin, Prednisone and Duonebs scheduled. Albuterol neb prn. She is on 4L NC at home and 5mg prednisone daily at baseline. Pulmonology consulted, appreciate recommendations. Will transition to PO azithro today and make plans for d/c. She has appt already scheduled with Dr. Caldwell 05/30/2019. CHF Last echo 05/2018 showed EF of 40-45% w/ grade 1/3 diastolic dysfunction Will continue Coreg and Lasix. Strict I/o and daily weight. Received 1L fluids in the ED, will d/c fluids. Heart Healthy diet. HTN Will restart home Losartan HLD Will continue atorvastatin Chronic pain She sees Dr. Christy outpatient and takes [place] at home. Will continue home [place]. Disposition/LOS: Dispo: Stable, inpatient. Code: BRITTANY PCP: ANA MARIA England VTE: Lovenox Addendum - Attending - Attending Attestation Date/Time: 05/27/19 1250 I personally evaluated the patient and discussed the management with Dr. Neff. I agree with the History, Examination, Assessment and Plan documented above with any addition or exceptions noted below. The patient is doing well. She will d/c home with a steroid taper. Continue to encourage smoking cessation.
[2019-05-27] MEDS: Carvedilol 3.125 MG TAB PO SCH ×2 (09:00→17:01)
[2019-05-27] MEDS: predniSONE 20 MG TAB PO SCH (09:01)
[2019-05-27] MEDS: Losartan 25 MG TAB PO SCH (09:02)
[2019-05-27] MEDS: Polyethylene Glycol 3350 17 GM Packet PO SCH (09:03)
[2019-05-27] MEDS: Enoxaparin Sodium 40 MG/0.4 ML SYRINGE SC SCH (09:04)
--- NOTE | 2019-05-27 11:26 | PRG ---
DATE OF SERVICE: 05/27/2019 SUBJECTIVE: Erica Carr says she is feeling better. OBJECTIVE: VITAL SIGNS: She is afebrile. Heart rate is in the 70s, respiratory rate is 20, oximetry is 95% on 3 L. LUNGS: Still remarkable for wheezes, but improved overall. HEART: Regular rhythm. ABDOMEN: Soft. EXTREMITIES: Without edema. LABORATORY DATA: There is no new lab on her. IMPRESSION: 1. Chronic obstructive pulmonary disease exacerbation. 2. History of medical noncompliance and noncompliance with smoking cessation. PLAN: Continue supportive care. We will switch her to p.o. antibiotics. She needs to increase her activity level, and if she is stable, maybe she can go home this weekend. She has a nebulizer and oxygen at home. Job ID: [id number]
[2019-05-27 17:29] VITALS: BP 126/58; TEMP 98.6
[2019-05-27] MEDS: HYDROcodone/Acetaminophen 5/325 mg Tablet PO PRN (18:43)
--- NOTE | 2019-05-27 18:58 | DIS ---
DATE OF ADMISSION: 05/23/2019 DATE OF DISCHARGE: 05/27/2019 ADMITTING ATTENDING: Luisito Sanches MD DISCHARGE ATTENDING: Suzanne Ruiz MD RESIDENT: Shadia Neff MD CONSULT: Dr. Caldwell, Pulmonology. PROCEDURES: None. PRIMARY DIAGNOSIS: Acute hypoxic respiratory failure secondary to chronic obstructive pulmonary disease exacerbation. SECONDARY DIAGNOSES: 1. Chronic obstructive pulmonary disease. 2. Congestive heart failure. 3. Hypertension. 4. Hyperlipidemia. 5. Chronic pain. DISCHARGE MEDICATIONS: 1. Atorvastatin. 2. Carvedilol. 3. Furosemide. 4. Hydrocodone. 5. Atrovent. 6. DuoNeb. 7. Nitroglycerin. 8. Protonix. 9. Prednisone. 10. Fosamax. 11. Budesonide. 12. Ceftin. 13. Robitussin. 14. MiraLAX. DISCONTINUED MEDICATIONS: None. HISTORY OF PRESENT ILLNESS AND HOSPITAL COURSE: Ms. Carr is a 69-year-old female, who presented to the ER for significantly worsening shortness of breath. The patient has a history of significant steroid-dependent COPD and is on 4 L of nasal cannula oxygen at home at baseline. Her symptoms began several days prior to admission and progressively worsened to the point, where her family believes she needed to be in the hospital. She also complained of increased sputum production and foul taste to the sputum. In the ER, she was given vancomycin, cefepime, DuoNeb, and steroids. While hospitalized, we treated her for COPD exacerbation with IV azithromycin, prednisone daily, and DuoNeb scheduled. We recommended that she should discontinue smoking and she is in agreement that she needs to quit smoking. She was evaluated by Dr. Caldwell, who is her high man and he recommends follow up with him in 1 month. She required BiPAP intermittently throughout her hospital stay, but on the day of discharge was back to her baseline respiratory status. She was discharged with 5 days of Ceftin b.i.d. and a prednisone taper starting at 40 mg and decreased down to 10 mg. Notable lab studies showed an ABG of a pH of 7.26 on arrival with a pCO2 of 83. Her chemistry was not remarkable. Her troponins trended downwards. Her urine was significant for protein, ketones, blood and red blood cells and hyaline casts. She is asymptomatic of any urinary symptoms. DISPOSITION: Stable. DISCHARGE INSTRUCTIONS: 1. Location: Home. 2. Diet: Heart healthy. 3. Activity: Ad alecia. 4. Followup: Follow up with primary care physician within [address] Caldwell within 1 month. Job ID: [id number] MTDD
[2019-05-27] MEDS ORDERED: Cefuroxime Axetil 250 MG TAB PO SCH (21:00)
[2019-05-28] MEDS ORDERED: Azithromycin 250 MG TAB PO SCH (09:00)
--- NOTE | 2019-05-30 08:18 | PQF ---
PALLAVI MORTON KATHERINE MD [id number] SAGRARIO MONTANEZ [id number] CLINICAL DOCUMENTATION CLARIFICATION FORM: POST DISCHARGE Addendum to original discharge summary date: ____ Late entry note date: __ DATE: 05/30/2019 ATTN: VANESA ANDRADE MD Please exercise your independent, professional judgment in responding to the clarification form. Clinical indicators are provided on the bottom of this form for your review Please check appropriate box(s) to clarify if the following diagnosis has been ruled in or ruled out: SEPSIS [ ] Ruled in diagnosis [ ] Continue to treat [ X] Resolved [ ] Ruled out diagnosis [ ] Cannot rule out diagnosis [ ] Other diagnosis [ ] Unable to determine For continuity of documentation, please document condition throughout progress notes and discharge summary. Thank You. CLINICAL INDICATORS - SIGNS / SYMPTOMS / LABS - Sepsis- ED record, 05/23, Meg Guillory MD - Temp: 97.7, RR:22, Pulse: 96-ED record, 05/23, Meg Guillory MD - WBC:7.0 on 05/23, 4.6L on 05/24- Laboratory report - Community acquired pneumonia-possible- Consultation, 05/24, Adolph Watt MD RISK FACTORS - Acute hypoxic respiratory failure- DS, 05/27, VANESA ANDRADE MD TREATMENTS -Vancomycin.IV- MAR, 05/23 to 05/27 - Azithromycin.IV-MAR, 05/23 to 05/27 (This form is maintained as a part of the permanent medical record) 2014 [employer]. All Rights Reserved [email or web address]
== END 2019-05-27 18:57 | disposition home or self-care (01) | DRG 871 ==
LOC: ERS 12:09 → ERHOLD 15:16 → IMCU/EMU 17:01 → T4-B 05-24 13:01
PROVIDERS: ADMIT Student in an Organized Health Care Education/Training Program; ATTEND Emergency Medicine
PROC: 5A09357 Assistance with Respiratory Ventilation, Less than 24 Consecutive Hours, Continuous Positive Airway Pressure (ICD-10-PCS; principal; 2019-05-23)
DX: A41.9 Sepsis, unspecified organism (principal); J96.22 Acute and chronic respiratory failure with hypercapnia; J18.9 Pneumonia, unspecified organism; J96.21 Acute and chronic respiratory failure with hypoxia; J44.1 Chronic obstructive pulmonary disease with (acute) exacerbation; I50.42 Chronic combined systolic (congestive) and diastolic (congestive) heart failure; Z68.41 Body mass index [BMI] 40.0-44.9, adult; I11.0 Hypertensive heart disease with heart failure; E78.5 Hyperlipidemia, unspecified; K21.9 Gastro-esophageal reflux disease without esophagitis; E66.01 Morbid (severe) obesity due to excess calories; M81.0 Age-related osteoporosis without current pathological fracture; G89.29 Other chronic pain; Z90.710 Acquired absence of both cervix and uterus
CPT/HCPCS: 36415; 51701; 71045; 71046; 80048; 80053; 81003; 81015; 82805; 83605; 84145; 84484; 85025; 87040; 87086; 87149; 87804; 93005; 94640; 94660; 96361; 96365; 96367; 96374; J0456; J0692; J1650; J2930; J3370; J7050; J7512; J7611; J7620

== ENCOUNTER 2020-08-08 06:50 | Inpatient (IN) | payer MEDICARE, MEDICAID ==
[2020-08-08] MEDS ORDERED: Magnesium 2 GM/50 ML BAG (IN WATER) ONE (07:25)
[2020-08-08] MEDS ORDERED: Dexamethasone 10 MG/ML VIAL ONE (07:25)
[2020-08-08 08:03] LABS: Actual Bicarbonate (HCO3a) 30.8 mEq/L (22-28); Analyzer IN Cardio ER; Base Excess (BEa) 4.3 mEq/L (-2.0 to +3.0); CO2 Tension 53.2 mmHg (35.0-45.0); Calcium, Ionized (arterial) 1.13 mmol/L (1.12-1.30); Carboxyhemoglobin (COHb) 3.7 gm% (0.0-3.0); Potassium - ABG Lab 3.51 mmol/L (3.70-5.30); pH, Arterial 7.38 (7.35-7.45)
[2020-08-08 08:07] LABS: O2 Tension (PaO2), arterial 55.8 mmHg (> 80.0); Puncture Site LRA
[2020-08-08 08:09] LABS: #Eosinphils 0.1 thou/uL (0.0-0.7); #Lymphocytes 2.7 thou/uL (1.20-3.40); #Monocytes 0.5 thou/uL (0.11-0.59); #Neutrophils 7.3 thou/uL (1.40-6.50); %Basophils 0.3 % (0.0-1.0); %Eosinophils 0.8 % (0.0-10.0); %Lymphocytes 25.3 % (21.0-51.0); %Monocytes 5.1 % (0.0-10.0); %Neutrophils 68.6 % (42.0-75.0); Band 4 % (5-11); Hemoglobin 13.6 g/dL (12.0-16.0); Lymphocytes 22 % (21-51); MDiff Complete? YES; Mean Corpuscular HGB CONC 32.4 g/dL (32.0-36.0); Mean Corpuscular Hemoglobin 31.3 pg (27.0-31.0); Mean Corpuscular Volume 96.6 fL (78.0-98.0); Mean Platelet Volume 9.4 fL (7.4-10.4); Monocytes 2 % (0-10); Neutrophil 72 % (42-75); Platelet Clumps MARKED; Platelet Morphology Comment PLT clumps seen-ADEQ; Polychromasia SLIGHT = 2-3 cells (100X) (0-2/hpf); RBC Distribution Width 11.8 % (11.5-14.5); Red Blood Cell (RBC) Count 4.34 mill/uL (4.20-5.40); White Blood Cell (WBC) Count 10.6 thou/uL (4.8-10.8)
[2020-08-08 08:10] LABS: ALT (SGPT) 20 U/L (8-55); AST (SGOT) 29 U/L (5-34); Albumin 3.7 g/dL (3.4-4.8); Alkaline Phosphatase 62 U/L (40-110); Anion Gap 16 mmol/L (10-20); BUN (Urea Nitrogen) 11 mg/dL (9.8-20.1); Bilirubin, Total 1.1 mg/dL (0.2-1.2); CK (CPK) 34 U/L (29-168); Calc. Creatinine Clearance 0 mL/min (70-130); Calcium 9.1 mg/dL (7.8-10.44); Carbon Dioxide 28 mmol/L (23-31); Chloride 99 mmol/L (98-107); Globulin 2.7 g/dL (2.4-3.5); Glucose 107 mg/dL (80-115); Lipase 22 U/L (8-78); Potassium 4.2 mmol/L (3.5-5.1); Protein, Total 6.4 g/dL (5.8-8.1); Sodium 139 mmol/L (136-145)
[2020-08-08 08:29] LABS: CKMB 2.1 ng/mL (0-6.6)
[2020-08-08 08:51] LABS: SARS-CoV-2 NAA Rapid Test Not Detected (NotDetected)
[2020-08-08] MEDS ORDERED: Aspirin Chewable 81 MG TAB ONE (10:00)
[2020-08-08] MEDS ORDERED: Enoxaparin Sodium 100 MG/ML SYRINGE ONE (10:00)
[2020-08-08 10:35] LABS: Bacteria/HPF None Seen HPF (None Seen); Bilirubin Negative (Negative); Blood, Urine 1+ (Negative); Clarity Clear (Clear); Glucose, Urine (Dipstick) Normal (Negative); Ketone, Urine Negative (Negative); Leukocyte Negative Leu/uL (Negative); Nitrite Negative (Negative); Protein, Urine (Dipstick) Negative (Neg-Trace); RBC/HPF 0-3 HPF (0-3); Specific Gravity, Urine 1.032 (1.002-1.036); Squamous Epithelial None Seen HPF (0-3); Urobilinogen Normal mg/dL (Less than 2); WBC/HPF 0-3 HPF (0-3)
[2020-08-08] MEDS ORDERED: Ondansetron PF 4 MG/2 ML Vial IVP PRN (10:38)
[2020-08-08] MEDS ORDERED: Ondansetron ODT 4 MG TAB PO PRN (10:38)
[2020-08-08] MEDS ORDERED: Azithromycin 250 MG TAB PO SCH (11:00)
[2020-08-08] MEDS ORDERED: Azithromycin 250 MG TAB ONE (11:23)
[2020-08-08 11:30] LABS: Lactic Acid 1.7 mmol/L (0.5-2.2)
[2020-08-08 11:37] LABS: Troponin I 0.586 ng/mL (< 0.028)
[2020-08-08] MEDS: Nicotine 21 MG PATCH TD SCH ×3 (12:26→20:43)
[2020-08-08] MEDS ORDERED: Iopamidol-370 76% 500 ML 1 ML ONE (12:55)
[2020-08-08] MEDS ORDERED: HYDROcodone/Acetaminophen 10/325 mg Tablet PO SCH (15:45)
[2020-08-08 18:56] LABS: Critical Call Chem Troponin I RESULT DECREASING; Troponin I 0.651 ng/mL (< 0.028)
[2020-08-08] MEDS: Enoxaparin Sodium 100 MG/ML SYRINGE SC SCH (20:43)
[2020-08-08] MEDS: Carvedilol 3.125 MG TAB PO SCH (20:44)
[2020-08-08] MEDS: Furosemide 40 MG TAB PO SCH (20:44)
[2020-08-08] MEDS: guaiFENesin ER 600 MG TAB PO SCH (20:44)
[2020-08-08] MEDS: Atorvastatin Calcium 10 MG TAB PO SCH (20:44)
[2020-08-08] MEDS: HYDROcodone/Acetaminophen 10/325 mg Tablet PO PRN (23:11)
[2020-08-09 05:12] LABS: #Lymphocytes 1.3 thou/uL (1.20-3.40); #Monocytes 0.4 thou/uL (0.11-0.59); #Neutrophils 11.2 thou/uL (1.40-6.50); %Basophils 0.1 % (0.0-1.0); %Eosinophils 0.1 % (0.0-10.0); %Lymphocytes 9.7 % (21.0-51.0); %Monocytes 2.8 % (0.0-10.0); %Neutrophils 87.3 % (42.0-75.0); Hemoglobin 12.6 g/dL (12.0-16.0); Mean Corpuscular HGB CONC 31.9 g/dL (32.0-36.0); Mean Corpuscular Hemoglobin 30.7 pg (27.0-31.0); Platelet Count 196 thou/uL (130-400); RBC Distribution Width 11.8 % (11.5-14.5); Red Blood Cell (RBC) Count 4.11 mill/uL (4.20-5.40); White Blood Cell (WBC) Count 12.8 thou/uL (4.8-10.8)
[2020-08-09] MEDS: HYDROcodone/Acetaminophen 10/325 mg Tablet PO PRN ×4 (05:15→23:40)
[2020-08-09 05:33] LABS: Anion Gap 13 mmol/L (10-20); BUN (Urea Nitrogen) 10 mg/dL (9.8-20.1); Calc. Creatinine Clearance 93 mL/min (70-130); Calcium 9.1 mg/dL (7.8-10.44); Carbon Dioxide 30 mmol/L (23-31); Chloride 100 mmol/L (98-107); Glucose 113 mg/dL (80-115); Potassium 4.4 mmol/L (3.5-5.1); Sodium 139 mmol/L (136-145)
[2020-08-09 08:53] VITALS: BMI 38.1
[2020-08-09] MEDS ORDERED: Enoxaparin Sodium 40 MG/0.4 ML SYRINGE SC SCH (09:00)
[2020-08-09] MEDS: predniSONE 20 MG TAB PO SCH (09:49)
[2020-08-09] MEDS: guaiFENesin ER 600 MG TAB PO SCH ×2 (09:49→21:13)
[2020-08-09] MEDS: Sulfameth/Trimethoprim DS 800-160mg TAB PO SCH ×2 (09:49→21:14)
[2020-08-09] MEDS: Azithromycin 250 MG TAB PO SCH (09:50)
[2020-08-09] MEDS: Furosemide 40 MG TAB PO SCH ×2 (09:50→21:13)
[2020-08-09] MEDS: Carvedilol 3.125 MG TAB PO SCH ×2 (09:50→21:13)
[2020-08-09] MEDS: Enoxaparin Sodium 100 MG/ML SYRINGE SC SCH (10:31)
[2020-08-09] MEDS: Nicotine 21 MG PATCH TD SCH (17:53)
[2020-08-09] MEDS: Calcium Carbonate 500 MG ChewTAB PO PRN (21:13)
[2020-08-09] MEDS: Atorvastatin Calcium 10 MG TAB PO SCH (21:14)
[2020-08-10] MEDS: HYDROcodone/Acetaminophen 10/325 mg Tablet PO PRN ×3 (05:59→18:03)
[2020-08-10 07:51] LABS: #Lymphocytes 1.7 thou/uL (1.20-3.40); #Monocytes 0.6 thou/uL (0.11-0.59); #Neutrophils 10.6 thou/uL (1.40-6.50); %Basophils 0.1 % (0.0-1.0); %Eosinophils 0.1 % (0.0-10.0); %Lymphocytes 13.4 % (21.0-51.0); %Monocytes 4.7 % (0.0-10.0); %Neutrophils 81.7 % (42.0-75.0); Hemoglobin 12.9 g/dL (12.0-16.0); Mean Corpuscular Hemoglobin 31.8 pg (27.0-31.0); Mean Corpuscular Volume 96.3 fL (78.0-98.0); Mean Platelet Volume 8.1 fL (7.4-10.4); Platelet Count 222 thou/uL (130-400); RBC Distribution Width 11.7 % (11.5-14.5); Red Blood Cell (RBC) Count 4.07 mill/uL (4.20-5.40)
[2020-08-10 08:09] LABS: Anion Gap 14 mmol/L (10-20); BUN (Urea Nitrogen) 16 mg/dL (9.8-20.1); Calc. Creatinine Clearance 83 mL/min (70-130); Calcium 8.7 mg/dL (7.8-10.44); Carbon Dioxide 32 mmol/L (23-31); Chloride 98 mmol/L (98-107); Glucose 88 mg/dL (80-115); Potassium 3.8 mmol/L (3.5-5.1); Sodium 140 mmol/L (136-145)
[2020-08-10] MEDS: guaiFENesin ER 600 MG TAB PO SCH ×2 (08:53→20:29)
[2020-08-10] MEDS: Azithromycin 250 MG TAB PO SCH (08:53)
[2020-08-10] MEDS: predniSONE 20 MG TAB PO SCH (08:56)
[2020-08-10] MEDS: Sulfameth/Trimethoprim DS 800-160mg TAB PO SCH ×2 (08:57→20:29)
[2020-08-10] MEDS ORDERED: Enoxaparin Sodium 40 MG/0.4 ML SYRINGE SC SCH ×2 (09:00→10:30)
[2020-08-10] MEDS ORDERED: Nitroglycerin 0.4 MG TAB (25 Tab Bottle) SL PRN (10:22)
[2020-08-10] MEDS ORDERED: Lactated Ringer's 500 ML IV SCH (11:30)
[2020-08-10] MEDS: Carvedilol 3.125 MG TAB PO SCH ×2 (14:44→20:31)
[2020-08-10] MEDS: Furosemide 40 MG TAB PO SCH ×2 (14:44→20:28)
[2020-08-10 17:24] LABS: Troponin I 0.064 ng/mL (< 0.028)
[2020-08-10] MEDS: Nicotine 21 MG PATCH TD SCH (18:03)
[2020-08-10] MEDS: Atorvastatin Calcium 10 MG TAB PO SCH (20:28)
[2020-08-10] MEDS: Enoxaparin Sodium 80 MG/0.8 ML SYRINGE SC SCH (20:28)
[2020-08-11] MEDS: HYDROcodone/Acetaminophen 10/325 mg Tablet PO PRN ×4 (00:07→18:31)
[2020-08-11 04:35] LABS: #Eosinphils 0.1 thou/uL (0.0-0.7); #Lymphocytes 1.8 thou/uL (1.20-3.40); #Monocytes 0.6 thou/uL (0.11-0.59); #Neutrophils 7.7 thou/uL (1.40-6.50); %Eosinophils 0.7 % (0.0-10.0); %Lymphocytes 17.4 % (21.0-51.0); %Monocytes 5.5 % (0.0-10.0); %Neutrophils 76.4 % (42.0-75.0); Hemoglobin 12.6 g/dL (12.0-16.0); Mean Corpuscular HGB CONC 31.7 g/dL (32.0-36.0); Mean Corpuscular Hemoglobin 30.6 pg (27.0-31.0); Mean Corpuscular Volume 96.3 fL (78.0-98.0); Mean Platelet Volume 8.9 fL (7.4-10.4); Platelet Count 182 thou/uL (130-400); RBC Distribution Width 11.9 % (11.5-14.5); Red Blood Cell (RBC) Count 4.12 mill/uL (4.20-5.40); White Blood Cell (WBC) Count 10.1 thou/uL (4.8-10.8)
[2020-08-11 04:58] LABS: Anion Gap 13 mmol/L (10-20); BUN (Urea Nitrogen) 16 mg/dL (9.8-20.1); Calc. Creatinine Clearance 79 mL/min (70-130); Calcium 8.6 mg/dL (7.8-10.44); Carbon Dioxide 32 mmol/L (23-31); Chloride 98 mmol/L (98-107); Glucose 84 mg/dL (80-115); Potassium 4.1 mmol/L (3.5-5.1); Sodium 139 mmol/L (136-145)
[2020-08-11] MEDS: Enoxaparin Sodium 80 MG/0.8 ML SYRINGE SC SCH ×2 (08:42→21:14)
[2020-08-11] MEDS: Sulfameth/Trimethoprim DS 800-160mg TAB PO SCH ×2 (08:42→21:15)
[2020-08-11] MEDS: guaiFENesin ER 600 MG TAB PO SCH ×2 (08:43→21:15)
[2020-08-11] MEDS: Furosemide 40 MG TAB PO SCH ×2 (08:43→21:15)
[2020-08-11] MEDS: predniSONE 20 MG TAB PO SCH (08:43)
[2020-08-11] MEDS: Carvedilol 3.125 MG TAB PO SCH ×2 (09:13→21:43)
[2020-08-11] MEDS: Nicotine 21 MG PATCH TD SCH (16:50)
[2020-08-11] MEDS: Calcium Carbonate 500 MG ChewTAB PO PRN (16:50)
[2020-08-11] MEDS: Atorvastatin Calcium 10 MG TAB PO SCH (21:16)
[2020-08-12] MEDS: HYDROcodone/Acetaminophen 10/325 mg Tablet PO PRN ×3 (00:21→11:34)
[2020-08-12 05:23] LABS: #Lymphocytes 1.5 thou/uL (1.20-3.40); #Monocytes 0.5 thou/uL (0.11-0.59); #Neutrophils 7.6 thou/uL (1.40-6.50); %Basophils 0.2 % (0.0-1.0); %Eosinophils 0.3 % (0.0-10.0); %Lymphocytes 15.4 % (21.0-51.0); %Monocytes 5.6 % (0.0-10.0); %Neutrophils 78.5 % (42.0-75.0); Hemoglobin 13.2 g/dL (12.0-16.0); Mean Corpuscular HGB CONC 30.9 g/dL (32.0-36.0); Mean Corpuscular Hemoglobin 29.8 pg (27.0-31.0); Mean Corpuscular Volume 96.4 fL (78.0-98.0); Mean Platelet Volume 8.3 fL (7.4-10.4); Platelet Count 212 thou/uL (130-400); RBC Distribution Width 11.9 % (11.5-14.5); Red Blood Cell (RBC) Count 4.42 mill/uL (4.20-5.40); White Blood Cell (WBC) Count 9.7 thou/uL (4.8-10.8)
[2020-08-12 05:48] LABS: Anion Gap 13 mmol/L (10-20); BUN (Urea Nitrogen) 19 mg/dL (9.8-20.1); Calc. Creatinine Clearance 73 mL/min (70-130); Calcium 8.7 mg/dL (7.8-10.44); Carbon Dioxide 32 mmol/L (23-31); Chloride 97 mmol/L (98-107); Glucose 78 mg/dL (80-115); Potassium 3.9 mmol/L (3.5-5.1); Sodium 138 mmol/L (136-145)
[2020-08-12] MEDS: predniSONE 20 MG TAB PO SCH (09:26)
[2020-08-12] MEDS: Sulfameth/Trimethoprim DS 800-160mg TAB PO SCH (09:26)
[2020-08-12] MEDS: Enoxaparin Sodium 80 MG/0.8 ML SYRINGE SC SCH (09:27)
[2020-08-12] MEDS: Carvedilol 3.125 MG TAB PO SCH (09:27)
[2020-08-12] MEDS: guaiFENesin ER 600 MG TAB PO SCH (09:27)
[2020-08-12] MEDS: Furosemide 40 MG TAB PO SCH (09:27)
[2020-08-12 11:58] VITALS: BP 97/51; TEMP 98.5
== END 2020-08-12 12:37 | disposition home or self-care (01) | DRG 280 ==
LOC: ERS 06:50 → ERHOLD 08:53 → 2NO 17:04
PROVIDERS: ADMIT Student in an Organized Health Care Education/Training Program; ATTEND Student in an Organized Health Care Education/Training Program
DX: I11.0 Hypertensive heart disease with heart failure (principal); J96.21 Acute and chronic respiratory failure with hypoxia; Z66 Do not resuscitate; Z20.822 Contact with and (suspected) exposure to COVID-19; I21.A1 Myocardial infarction type 2; L02.214 Cutaneous abscess of groin; I50.23 Acute on chronic systolic (congestive) heart failure; I42.8 Other cardiomyopathies; J43.9 Emphysema, unspecified; E78.5 Hyperlipidemia, unspecified; G89.29 Other chronic pain; F17.210 Nicotine dependence, cigarettes, uncomplicated; Z99.81 Dependence on supplemental oxygen; Z90.710 Acquired absence of both cervix and uterus; Z79.51 Long term (current) use of inhaled steroids; Z79.52 Long term (current) use of systemic steroids; Z79.899 Other long term (current) drug therapy
CPT/HCPCS: 0240U; 36415; 36600; 71045; 71275; 80048; 80053; 81003; 81015; 82550; 82553; 82805; 83605; 83690; 83880; 84145; 84484; 85025; 85379; 87040; 87070; 87077; 87186; 87205; 93005; 94640; 96365; 96367; 96372; 96375; J1100; J1650; J1956; J3475; J7512; J7620; Q9967

== ENCOUNTER 2020-10-23 13:38 | Emergency (ER) | payer MEDICARE, OTHER ==
[2020-10-23] MEDS ORDERED: Ketorolac Tromethamine 30 MG/ML VIAL ONE (14:21)
[2020-10-23] MEDS ORDERED: Cyclobenzaprine 10 MG TAB ONE (14:21)
== END 2020-10-23 14:54 | disposition home or self-care (01) ==
LOC: ERS 13:38
DX: M54.5 Low back pain (principal); I11.0 Hypertensive heart disease with heart failure; I50.9 Heart failure, unspecified; E78.5 Hyperlipidemia, unspecified; R60.0 Localized edema; J44.9 Chronic obstructive pulmonary disease, unspecified; F17.210 Nicotine dependence, cigarettes, uncomplicated; Z79.899 Other long term (current) drug therapy
CPT/HCPCS: 96372; 99283; J1885

== ENCOUNTER 2020-10-24 15:18 | Outpatient (CLI) | payer MEDICARE, OTHER | END 2020-10-24 15:19 | disposition home or self-care (01) | LOC: BICRAD 15:18 | PROVIDERS: ATTEND Specialist | DX: M47.22 Other spondylosis with radiculopathy, cervical region (principal); S22.000A Wedge compression fracture of unspecified thoracic vertebra, initial encounter for closed fracture; S32.030A Wedge compression fracture of third lumbar vertebra, initial encounter for closed fracture; M48.56XA Collapsed vertebra, not elsewhere classified, lumbar region, initial encounter for fracture; J18.9 Pneumonia, unspecified organism | CPT/HCPCS: 72040; 72072; 72100 ==

== ENCOUNTER 2020-10-31 12:32 | Outpatient (CLI) | payer MEDICARE, OTHER | END 2020-10-31 12:33 | disposition home or self-care (01) | LOC: SCSMRI 12:32 | PROVIDERS: ATTEND Nurse Practitioner Family | DX: S32.019G Unspecified fracture of first lumbar vertebra, subsequent encounter for fracture with delayed healing (principal); M54.6 Pain in thoracic spine; M48.061 Spinal stenosis, lumbar region without neurogenic claudication; R60.0 Localized edema; M43.9 Deforming dorsopathy, unspecified; Z98.890 Other specified postprocedural states | CPT/HCPCS: 72146; 72148 ==

== ENCOUNTER 2020-11-02 21:30 | Emergency (ER) | payer MEDICARE, OTHER ==
[2020-11-03] MEDS ORDERED: Ketorolac Tromethamine 30 MG/ML VIAL ONE (00:50)
== END 2020-11-03 01:40 | disposition home or self-care (01) ==
LOC: ERS 21:30
DX: M25.512 Pain in left shoulder (principal); M25.552 Pain in left hip; I11.0 Hypertensive heart disease with heart failure; I50.9 Heart failure, unspecified; E78.5 Hyperlipidemia, unspecified; J44.9 Chronic obstructive pulmonary disease, unspecified; F17.210 Nicotine dependence, cigarettes, uncomplicated
CPT/HCPCS: 96372; J1885

== ENCOUNTER 2020-11-15 08:53 | Day surgery (SDC) | payer MEDICARE, MEDICAID ==
[2020-11-14 14:49] VITALS: BMI 36.1
[2020-11-15] MEDS ORDERED: Fentanyl 100 MCG/2 ML VIAL ONE (10:14)
[2020-11-15] MEDS ORDERED: Bupivacaine PF 0.5% 30 ML VIAL ONE (10:27)
[2020-11-15] MEDS ORDERED: Iopamidol 0 ML ONE (10:27)
[2020-11-15] MEDS ORDERED: Lidocaine 1% w/Epinephrine 1:100K 20 ML VIAL ONE (10:27)
[2020-11-15] MEDS ORDERED: Iopamidol 10 ML FS ONE (10:28)
[2020-11-15] MEDS ORDERED: Lidocaine 1% PF 5 ML VIAL ONE (11:02)
[2020-11-15] MEDS ORDERED: Ondansetron PF 4 MG/2 ML Vial ONE (11:02)
[2020-11-15] MEDS ORDERED: PROPOFOL 200 MG/20 ML VIAL ONE (11:02)
== END 2020-11-15 13:05 | disposition home or self-care (01) ==
LOC: SDC 08:53
PROVIDERS: ATTEND Specialist
PROC: 0QS03ZZ Reposition Lumbar Vertebra, Percutaneous Approach (ICD-10-PCS; principal; 2020-11-15)
PROC: 0QU03JZ Supplement Lumbar Vertebra with Synthetic Substitute, Percutaneous Approach (ICD-10-PCS; 2020-11-15)
DX: M80.08XA Age-related osteoporosis with current pathological fracture, vertebra(e), initial encounter for fracture (principal); M47.26 Other spondylosis with radiculopathy, lumbar region; G89.29 Other chronic pain; J44.9 Chronic obstructive pulmonary disease, unspecified; E78.5 Hyperlipidemia, unspecified; I11.0 Hypertensive heart disease with heart failure; I50.9 Heart failure, unspecified; K21.9 Gastro-esophageal reflux disease without esophagitis; Z87.891 Personal history of nicotine dependence; Z79.899 Other long term (current) drug therapy; Z98.890 Other specified postprocedural states
CPT/HCPCS: 72100; 76000; J0690; J2405; J2704; J3010; Q9966; Q9967; S0020

== ENCOUNTER 2021-12-12 15:56 | Inpatient (IN) | payer OTHER ==
[2021-12-12 16:43] LABS: Hemoglobin 12.2 g/dL (12.0-16.0); Mean Corpuscular HGB CONC 31.8 g/dL (32.0-36.0); Mean Corpuscular Hemoglobin 32.2 pg (27.0-31.0); Mean Platelet Volume 7.2 fL (7.4-10.4); Platelet Count 289 thou/uL (130-400); RBC Distribution Width 12.1 % (11.5-14.5); Red Blood Cell (RBC) Count 3.79 mill/uL (4.20-5.40); White Blood Cell (WBC) Count 22.1 thou/uL (4.8-10.8)
[2021-12-12 16:51] LABS: PTT 27.6 sec (22.9-36.1); Prothrombin Time 13.6 sec (12.0-14.7)
[2021-12-12 17:02] LABS: ALT (SGPT) 18 U/L (8-55); AST (SGOT) 17 U/L (5-34); Albumin 3.6 g/dL (3.4-4.8); Alkaline Phosphatase 97 U/L (40-110); Anion Gap 19 mmol/L (10-20); BUN (Urea Nitrogen) 27 mg/dL (9.8-20.1); Bilirubin, Total 0.7 mg/dL (0.2-1.2); Calc. Creatinine Clearance 0 mL/min (70-130); Calcium 8.8 mg/dL (7.8-10.44); Carbon Dioxide 28 mmol/L (23-31); Chloride 97 mmol/L (98-107); Estimated GFR 32; Globulin 3.2 g/dL (2.4-3.5); Glucose 122 mg/dL (80-115); Magnesium 2.3 mg/dL (1.6-2.6); Potassium 4.3 mmol/L (3.5-5.1); Protein, Total 6.8 g/dL (5.8-8.1); Sodium 140 mmol/L (136-145)
[2021-12-12 17:07] LABS: Band 15 % (5-11); Lymphocytes 3 % (21-51); MDiff Complete? YES; Macrocytosis SLIGHT = 6-15 cells (100X) (0-5/hpf); Monocytes 4 % (0-10); Neutrophil 78 % (42-75); Platelet Morphology Comment Appears Adequate
[2021-12-12 17:38] LABS: Actual Bicarbonate (HCO3v) 28 mEq/L (22-28); Analyzer IN Cardio ER; Calcium, Ionized (venous) 0.99 mmol/L (1.16-1.32); Chloride (VBG) 100 mmol/L (98-106); Hemoglobin (Hb) 12.2 g/dL (11.7-16.1); Potassium (VBG) 4.23 mmol/L (3.70-5.30); Sodium 134.2 mmol/L (133-146); pH (venous) 7.33 (7.32-7.43)
[2021-12-12] MEDS ORDERED: Dextrose 5% in Water 1,000 ML IV PRN ×2 (17:43→17:50)
[2021-12-12] MEDS ORDERED: Ondansetron PF 4 MG/2 ML Vial IVP PRN (17:43)
[2021-12-12] MEDS ORDERED: Insulin Regular 300 UNITS/3 ML VIAL SC PRN (17:43)
[2021-12-12] MEDS ORDERED: Promethazine HCl 25 MG/ML VIAL IM PRN (17:43)
[2021-12-12] MEDS ORDERED: Morphine 2 MG/ML VIAL SLOW IVP PRN (17:43)
[2021-12-12] MEDS ORDERED: hydrALAZINE 20 MG/ML VIAL SLOW IVP PRN (17:43)
[2021-12-12] MEDS ORDERED: Dextrose 50% Abboject 50 ML SYRINGE SLOW IVP PRN ×2 (17:43→17:50)
[2021-12-12] MEDS ORDERED: Magnesium 2 GM/50 ML BAG (IN WATER) ONE (17:45)
[2021-12-12] MEDS ORDERED: predniSONE 20 MG TAB ONE (17:45)
[2021-12-12] MEDS ORDERED: Cefepime 2 GM VIAL ONE (17:45)
[2021-12-12] MEDS ORDERED: Sodium Chloride 0.9% 1,000 ML IV SCH ×5 (17:45→20:17)
[2021-12-12] MEDS ORDERED: Acetaminophen 325 MG TAB PO SCH (18:00)
[2021-12-12] MEDS ORDERED: Calcium Chloride 1 GM/10 ML Abboject SYRINGE IVP SCH (18:15)
[2021-12-12] MEDS ORDERED: VANCOMYCIN 1.25 GM/250 ML BAG 1.25 GM in Premix Bag 1 BAG IVPB SCH (18:15)
[2021-12-12 18:46] LABS: SARS-CoV-2 NAA Rapid Test Not Detected (NotDetected)
[2021-12-12 19:38] LABS: Lactic Acid 2.3 mmol/L (0.5-2.2)
[2021-12-12] MEDS ORDERED: Hydrocortisone Sod Succ/PF 100 mg/2 ml Vial IVP SCH (19:45)
[2021-12-12] MEDS ORDERED: Piperacillin/Tazobactam 3.375 GM in Sodium Chloride 0.9% 100 ML IVPB SCH (20:00)
[2021-12-12] MEDS: HYDROcodone/Acetaminophen 10/325 mg Tablet PO PRN (20:40)
[2021-12-12] MEDS ORDERED: Famotidine/PF 20 mg/2ml Vial SLOW IVP SCH (21:00)
[2021-12-12 21:10] LABS: Bilirubin Negative (Negative); Blood, Urine 1+ (Negative); Clarity Clear (Clear); Glucose, Urine (Dipstick) Normal (Negative); Ketone, Urine Negative (Negative); Leukocyte 500 Leu/uL (Negative); Mucous/LPF Rare LPF (<2+); Nitrite 2+ (Negative); Protein, Urine (Dipstick) Negative (Neg-Trace); Specific Gravity, Urine 1.024 (1.002-1.036); Squamous Epithelial 0-3 HPF (0-3); Urobilinogen Normal mg/dL (Less than 2); WBC/HPF 21-50 HPF (0-3)
[2021-12-12 21:20] LABS: Bacteria/HPF 3+ HPF (None Seen)
[2021-12-12 21:21] LABS: Urine Culture Reflex Yes Yes
[2021-12-12 21:56] VITALS: BMI 30.4
[2021-12-12] MEDS: Budesonide 0.5 MG/2 ML NEB NEB SCH (22:23)
[2021-12-13] MEDS: Piperacillin/Tazobactam 3.375 GM in Sodium Chloride 0.9% 100 ML IVPB SCH ×2 (00:35→08:22)
[2021-12-13] MEDS: Acetaminophen 325 MG TAB PO SCH ×2 (00:36→06:15)
[2021-12-13] MEDS: Hydrocortisone Sod Succ/PF 100 mg/2 ml Vial IVP SCH ×3 (02:09→17:33)
[2021-12-13] MEDS: HYDROcodone/Acetaminophen 10/325 mg Tablet PO PRN ×4 (04:07→21:16)
[2021-12-13] MEDS: Sodium Chloride 0.9% 1,000 ML IV SCH ×2 (06:14→21:20)
[2021-12-13 06:54] LABS: #Lymphocytes 0.5 thou/uL (1.20-3.40); #Monocytes 0.2 thou/uL (0.11-0.59); #Neutrophils 14.1 thou/uL (1.40-6.50); %Eosinophils 0.2 % (0.0-10.0); %Lymphocytes 3.3 % (21.0-51.0); %Neutrophils 95.4 % (42.0-75.0); Hemoglobin 10.1 g/dL (12.0-16.0); Mean Corpuscular HGB CONC 31.4 g/dL (32.0-36.0); Mean Corpuscular Hemoglobin 31.2 pg (27.0-31.0); Mean Corpuscular Volume 99.4 fL (78.0-98.0); Mean Platelet Volume 7.8 fL (7.4-10.4); Platelet Count 204 thou/uL (130-400); RBC Distribution Width 11.8 % (11.5-14.5); Red Blood Cell (RBC) Count 3.23 mill/uL (4.20-5.40); White Blood Cell (WBC) Count 14.8 thou/uL (4.8-10.8)
[2021-12-13 07:01] LABS: Lactic Acid 1.2 mmol/L (0.5-2.2)
[2021-12-13] MEDS: Budesonide 0.5 MG/2 ML NEB NEB SCH ×2 (07:08→18:53)
[2021-12-13 07:12] LABS: Anion Gap 16 mmol/L (10-20); BUN (Urea Nitrogen) 22 mg/dL (9.8-20.1); Calc. Creatinine Clearance 50 mL/min (70-130); Calcium 8.7 mg/dL (7.8-10.44); Carbon Dioxide 27 mmol/L (23-31); Chloride 101 mmol/L (98-107); Estimated GFR 54; Glucose 118 mg/dL (80-115); Magnesium 2.4 mg/dL (1.6-2.6); Potassium 4.5 mmol/L (3.5-5.1); Sodium 139 mmol/L (136-145)
[2021-12-13] MEDS: Bacitracin 1 PK TOP SCH (08:23)
[2021-12-13 08:27] LABS: Phosphorus 4.6 mg/dL (2.3-4.7)
[2021-12-13] MEDS ORDERED: predniSONE 5 MG TAB PO SCH (09:00)
[2021-12-13] MEDS ORDERED: Furosemide 40 MG TAB PO SCH (09:00)
[2021-12-13] MEDS: HYDROcodone/Acetaminophen 10/325 mg Tablet PO SCH ×2 (12:26→18:03)
[2021-12-13] MEDS: Gabapentin 100 MG CAP PO SCH ×2 (16:15→21:19)
[2021-12-13] MEDS: Nicotine 14 MG PATCH TD SCH (16:15)
[2021-12-13] MEDS ORDERED: Famotidine/PF 20 mg/2ml Vial SLOW IVP SCH (21:00)
[2021-12-13] MEDS: cefTRIAXone\\ROCEPHIN 1 GM in Sodium Chloride 0.9% 100 ML IVPB SCH (21:22)
[2021-12-14] MEDS: HYDROcodone/Acetaminophen 10/325 mg Tablet PO SCH ×4 (00:38→17:30)
[2021-12-14] MEDS: Hydrocortisone Sod Succ/PF 100 mg/2 ml Vial IVP SCH ×3 (02:11→17:31)
[2021-12-14] MEDS: Budesonide 0.5 MG/2 ML NEB NEB SCH ×2 (07:13→18:47)
[2021-12-14] MEDS ORDERED: Morphine 4 MG/ML VIAL ONE (08:55)
[2021-12-14] MEDS ORDERED: Furosemide 40 MG TAB PO SCH ×2 (09:00)
[2021-12-14] MEDS: Gabapentin 100 MG CAP PO SCH (09:07)
[2021-12-14] MEDS: Bacitracin 1 PK TOP SCH (09:07)
[2021-12-14] MEDS ORDERED: Gabapentin 300 MG CAP PO SCH (09:15)
[2021-12-14] MEDS ORDERED: Morphine ER 15 MG TAB PO SCH (09:15)
[2021-12-14] MEDS ORDERED: cloNIDine 0.1 MG TAB PO SCH (09:15)
[2021-12-14] MEDS: Gabapentin 300 MG CAP PO SCH ×2 (14:00→21:01)
[2021-12-14] MEDS: cloNIDine 0.1 MG TAB PO SCH ×2 (14:00→21:02)
[2021-12-14] MEDS: Nicotine 14 MG PATCH TD SCH (17:31)
[2021-12-14] MEDS: Sodium Chloride 0.9% 1,000 ML IV SCH (17:32)
[2021-12-14] MEDS: cefTRIAXone\\ROCEPHIN 1 GM in Sodium Chloride 0.9% 100 ML IVPB SCH (21:00)
[2021-12-14] MEDS: Heparin 5,000 UNITS/ML VIAL SC SCH (21:03)
[2021-12-14] MEDS: Morphine ER 15 MG TAB PO SCH (21:03)
[2021-12-15] MEDS: Hydrocortisone Sod Succ/PF 100 mg/2 ml Vial IVP SCH ×3 (02:05→17:57)
[2021-12-15] MEDS: HYDROcodone/Acetaminophen 10/325 mg Tablet PO SCH ×4 (02:38→17:57)
[2021-12-15] MEDS: Budesonide 0.5 MG/2 ML NEB NEB SCH ×2 (06:51→18:40)
[2021-12-15] MEDS: Gabapentin 300 MG CAP PO SCH ×3 (08:51→20:24)
[2021-12-15] MEDS: cloNIDine 0.1 MG TAB PO SCH ×3 (08:51→20:23)
[2021-12-15] MEDS: Morphine ER 15 MG TAB PO SCH ×2 (08:52→20:25)
[2021-12-15] MEDS: Heparin 5,000 UNITS/ML VIAL SC SCH ×2 (08:53→20:26)
[2021-12-15] MEDS: Bacitracin 1 PK TOP SCH (08:53)
[2021-12-15] MEDS: Nicotine 14 MG PATCH TD SCH (17:57)
[2021-12-15] MEDS: Sodium Chloride 0.9% 1,000 ML IV SCH (17:58)
[2021-12-15] MEDS: cefTRIAXone\\ROCEPHIN 1 GM in Sodium Chloride 0.9% 100 ML IVPB SCH (20:23)
[2021-12-15 20:30] VITALS: BP 105/56
[2021-12-16] MEDS: HYDROcodone/Acetaminophen 10/325 mg Tablet PO SCH ×3 (00:47→11:41)
[2021-12-16] MEDS: Gabapentin 300 MG CAP PO SCH (07:42)
[2021-12-16] MEDS: Budesonide 0.5 MG/2 ML NEB NEB SCH (07:43)
[2021-12-16] MEDS: Morphine ER 15 MG TAB PO SCH (07:43)
[2021-12-16] MEDS: Bacitracin 1 PK TOP SCH (07:43)
[2021-12-16] MEDS: Heparin 5,000 UNITS/ML VIAL SC SCH (07:43)
[2021-12-16] MEDS ORDERED: predniSONE 5 MG TAB PO SCH (09:00)
[2021-12-16] MEDS ORDERED: cloNIDine 0.1 MG TAB PO SCH ×2 (09:00→12:00)
[2021-12-16 11:42] VITALS: TEMP 97.4
== END 2021-12-16 13:09 | disposition hospice, home (50) | DRG 871 ==
LOC: ERS 15:56 → CCU 17:48 → IMCU/EMU 23:23
PROVIDERS: ADMIT Physician Assistant; ATTEND Surgery
DX: A41.9 Sepsis, unspecified organism (principal); J96.21 Acute and chronic respiratory failure with hypoxia; S72.142A Displaced intertrochanteric fracture of left femur, initial encounter for closed fracture; N39.0 Urinary tract infection, site not specified; J44.1 Chronic obstructive pulmonary disease with (acute) exacerbation; N17.9 Acute kidney failure, unspecified; I50.42 Chronic combined systolic (congestive) and diastolic (congestive) heart failure; Z51.5 Encounter for palliative care; Z66 Do not resuscitate; R65.20 Severe sepsis without septic shock; F17.210 Nicotine dependence, cigarettes, uncomplicated; Z20.822 Contact with and (suspected) exposure to COVID-19; M81.0 Age-related osteoporosis without current pathological fracture; E78.5 Hyperlipidemia, unspecified; I11.0 Hypertensive heart disease with heart failure; W18.30XA Fall on same level, unspecified, initial encounter; Z28.311 Partially vaccinated for COVID-19; Z90.710 Acquired absence of both cervix and uterus; Z98.890 Other specified postprocedural states; Z79.52 Long term (current) use of systemic steroids; Z99.3 Dependence on wheelchair; Z99.81 Dependence on supplemental oxygen
CPT/HCPCS: 36415; 70450; 71045; 71275; 72125; 80048; 80053; 81001; 82533; 82553; 82805; 83605; 83735; 83880; 84100; 84484; 85025; 85610; 85730; 86850; 86870; 86900; 86901; 86905; 87040; 87086; 93005; 94640; 94660; 96361; 96365; 97139; 99292; G0390; J0692; J0696; J1644; J1720; J2270; J2543; J3370; J3475; J3490; J7050; J7512; J7620; J7626; S0028; U0002